=== PATIENT | male | born 1960 | race Caucasian/White ===

== ENCOUNTER 2022-10-29 14:27 | Inpatient (IN) | payer BC, OTHER ==
[2022-10-29] MEDS ORDERED: EPINEPHrine 4 MG in DEXTROSE 5% IN WATER 250 ML IV ONE ×2 (14:45)
[2022-10-29] MEDS ORDERED: HEPARIN SODIUM 1,000 UN/ML (10ML VL) IV PRN (14:52)
[2022-10-29] MEDS ORDERED: SODIUM CHLORIDE 0.9% 1,000 ML IV STA (14:52)
[2022-10-29] MEDS ORDERED: HEPARIN SODIUM 1,000 UN/ML (10ML VL) IV ONE (14:52)
[2022-10-29] MEDS ORDERED: ASPIRIN 300 MG SUPP RECTAL STA (14:52)
[2022-10-29] MEDS ORDERED: VERAPAMIL 2.5 MG/ML 2 ML AMP ONE (14:58)
[2022-10-29] MEDS ORDERED: LIDOCAINE 1% INJ 10MG/ML (20 ML MDV) ONE (14:58)
[2022-10-29] MEDS: HEPARIN SOD,PORK IN 0.45% NACL 25,000 UNIT in 0.45% NACL 1 250ML.BAG IV SCH (15:04)
[2022-10-29 15:07] LABS: Basophils % (A) 1 %; Eosinophils # (A) 0.1 k/uL (0-0.7); Eosinophils % (A) 1 %; HCT 39.6 % (39.0-53.0); HGB 12.7 gm/dL (13.0-17.5); Lymphocytes # (A) 2.8 k/uL (1.0-4.8); Lymphocytes % (A) 45 %; MCH 30.5 pg (25.0-35.0); MCHC 32.2 g/dL (31.0-37.0); MCV 94.7 fL (80.0-100.0); Mean Platelet Volume 8.3; Monocytes # (A) 0.4 k/uL (0-1.0); Monocytes % (A) 6 %; Neutrophils # (A) 2.8 k/uL (1.3-7.7); Neutrophils % (A) 45 %; Platelet Count 316 k/uL (150-450); RBC 4.18 m/uL (4.30-5.90); RDW 12.4 % (11.5-15.5); WBC 6.3 k/uL (3.8-10.6)
[2022-10-29 15:12] LABS: Albumin 2.8 g/dL (3.5-5.0); Calcium 7.2 mg/dL (8.4-10.2); INR 0.9 (<1.2); Magnesium 2.6 mg/dL (1.6-2.3); Partial Thromboplastin Time 25.9 sec (22.0-30.0); Potassium 4.2 mmol/L (3.5-5.1); Total Bilirubin 0.5 mg/dL (0.2-1.3)
[2022-10-29] MEDS ORDERED: ATORVASTATIN 80 MG TAB PO STA ×2 (15:20→15:31)
--- NOTE | 2022-10-29 15:23 | XR ---
EXAMINATION TYPE: XR chest 1V portable DATE OF EXAM: 10/29/2022 HISTORY: Shortness of breath. COMPARISON: None. TECHNIQUE: Single view of the chest is submitted. FINDINGS: Endotracheal tube is well-positioned with its distal tip 3 cm from the angelita. NG tube is seen coursi ng into the stomach. Increased markings within the upper lobes. Cardiomediastinal silhouette is unremarkable. Lung bases a re clear. IMPRESSION: 1. Indwelling tubes and catheters as noted. Increased markings upper lobes are nonspecific.
--- NOTE | 2022-10-29 15:25 | ED ---
General Adult HPI - General Chief complaint: Cardiac Arrest/CPR Stated complaint: Cardiac Arrest Time Seen by Provider: 10/29/22 14:52 Source: EMS Mode of arrival: EMS Limitations: no limitations - History of Present Illness Initial comments: Dictation was produced using [employer] dictation software. please excuse any grammatical, word or spelling errors. 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 He had a witnessed arrest by coworker. CPR was started immediately. EMS was called. Patient is given a total of 4 epinephrine, one dose of amiodarone. He had coded for 30 minutes with short period of time were return of spontaneous circulation was achieved. He did have some bouts of pulseless V. tach for which she received defibrillation. Is is unclear what patient's medical history is. Unable to obtain ROS secondary to mental status PHYSICAL EXAM: General Impression: Obtunded, unresponsive, Rayo device in place HEENT: Normocephalic atraumatic, fixed pupils, pale, dry mucous membranes Cardiovascular: Pulseless Chest: Intubated, easy to bag ventilate Abdomen: abdomen soft, mildly tympanitic, non-distended, no organomegaly Musculoskeletal: no peripheral edema Neurological: Unresponsive Skin: Intact with no visualized rashes ED course: 62-year-old male presents to emergency department for cardiac arrest. He had witnessed arrest. CPR was continued for several minutes. Patient was pulseless on arrival. He did not have a ultrasound signal for pulse. CPR was continued for another several minutes. Patient did have a faint bradycardic pulse on the 34th pulse check. Patient was given epinephrine and heart rate improved into the 100s. His blood pressure was obtained with 160s systolic. EKG is performed showing inferior ST segment elevation CO. There were reciprocal changes in inferior leads. Code STEMI paged. Dr. Laguna requested to evaluate patient at the bedside before committing to laborer heading activation. He did come down and see the patient and did not recommended code STEMI at this time given that history present illness and physical examination suggests brain . Cardiology recommended patient be transferred to the ICU for further care. Nursing notes and chart review was performed EKG interpreted by me: Ventricular rate 15, sinus tachycardia,. Interval to 4, QRS 133, QTc 413. No WA prolongation, no QTC prolongation. ST elevations in inferior leads with Versed with changes and high lateral leads. EKG shows ST segment elevation CO Was pt. sent in by a medical professional or institution (, MP, RAW STOCK DYEING MACHINE TENDER, urgent care, hospital, or usp...) When possible be specific @ -No Did you speak to anyone other than the patient for history (EMS, parent, family, police, friend...)? What history was obtained from this source @ -EMS Did you review nursing and triage notes (agree or disagree)? Why? @ -I reviewed and agree with nursing and triage notes Were old charts reviewed (outside hosp., previous admission, EMS record, old EKG, old radiological studies, urgent care reports/EKG's, usp records)? Report findings @ -No old charts were reviewed Differential Diagnosis (chest pain, altered mental status, abdominal pain women, abdominal pain men, vaginal bleeding, musculoskeletal, weakness, fever, dyspnea, syncope, headache, dizziness, GI bleed, back pain, seizure, CVA, palpatations, mental health)? @ -Differential Syncope: Valvular disease, hypertrophic cardiomyopathy, pulmonary embolism, tamponade, tachycardia, bradycardia, CO, hypovolemia, hemorrhage, dissection, anemia, intracranial hemorrhage, seizure, hypoglycemia, carbon monoxide poisoning, this is not meant to be an all-inclusive list. EKG interpreted by me (3pts min.). @ -See above X-rays interpreted by me (1pt min.). @ -With overseas. Endotracheal tube is approximately 3 cm above the angelita. CT interpreted by me (1pt min.). @ -None done U/S interpreted by me (1pt. min.). @ -None done What testing was considered but not performed or refused? (CT, X-rays, U/S, labs)? Why? @ -None What meds were considered but not given or refused? Why? @ -None Did you discuss the management of the patient with other professionals (professionals i.e. MP Posadas, RAW STOCK DYEING MACHINE TENDER, lab, RT, psych nurse, social media executive, vat overhauler, teacher, medical officer psychiatry, case making machine operator)? Give summary @ -Case discussed in detail with cleaner wall Dr. Laguna. See above for further detail Was smoking cessation discussed for >3mins.? @ -No Was critical care preformed (if so, how long)? @ -Yes, 33 minutes Were there social determinants of health that impacted care today? How? (Homelessness, low income, unemployed, alcoholism, drug addiction, transp ortation, low edu. Level, literacy, decrease access to med. care, mcc, rehab)? @ -No Was there de-escalation of care discussed even if they declined (Discuss DNR or withdrawal of care, Hospice)? DNR status @ -No What co-morbidities impacted this encounter? (DM, HTN, Smoking, COPD, CAD, Cancer, CVA, ARF, Chemo, Hep., AIDS, mental health diagnosis, sleep apnea, morbid obesity)? @ -None Was patient admitted / discharged? Hospital course, mention meds given and route, prescriptions, significant lab abnormalities, going to OR and other pertinent info. @ -62-year-old male admitted to ICU for ST segment elevation CO. Patient does have some signs of brain . He had CPR for 30 minutes. He has fixed pupils. Code STEMI was paged her cleaner wall felt the patient is not a candidate for cardiac catheterization given that he is showing signs of brain . Patient disposition to the ICU. Undiagnosed new problem with uncertain prognosis? @ -No Drug Therapy requiring intensive monitoring for toxicity (Heparin, Nitro, Insulin, Cardizem)? @ - Heparin Were any procedures done? @ -No Diagnosis/symptom? Acute, or Chronic, or Acute on Chronic? Uncomplicated (without systemic symptoms) or Complicated (systemic symptoms)? @ -1. Cardiac arrest, 2. ST segment elevation CO, 3. Anoxic brain injury Side effects of treatment? @ -No Exacerbation, Progression, or Severe Exacerbation? @ -No Poses a threat to life or bodily function? How? (Chest pain, USA, CO, pneumonia, PE, COPD, DKA, ARF, appy, cholecystitis, CVA, Diverticulitis, Homicidal, Suicidal, threat to staff... and all critical care pts) @ -yes - Related Data Home Medications Medication Instructions Recorded Confirmed Empagliflozin [Jardiance] 25 mg PO DAILY 10/29/22 10/29/22 Insulin Degludec [Tresiba 20 units SQ HS 10/29/22 10/29/22 Flextouch U-100 Pen] Nortriptyline [Pamelor] 25 mg PO BID 10/29/22 10/29/22 OXcarbazepine [Trileptal] 300 mg PO DAILY 10/29/22 10/29/22 carvediloL [Coreg] 12.5 mg PO BID 10/29/22 10/29/22 lisinopriL [Prinivil] 20 mg PO DAILY 10/29/22 10/29/22 metFORMIN HCL [Glucophage] 1,000 mg PO BID 10/29/22 10/29/22 Allergies Allergy/AdvReac Type Severity Reaction Status Date / Time No Known Allergies Allergy Unverified 10/29/22 15:00 Review of Systems ROS Statement: Those systems with pertinent positive or pertinent negative responses have been documented in the HPI. ROS Other: All systems not noted in ROS Statement are negative. General Exam Limitations: no limitations Course Vital Signs 10/29/22 10/29/22 10/29/22 14:40 14:43 14:58 Pulse Rate 109 H Respiratory 24 Rate Blood Pressure 155/98 Fraction of 100 100 Inspired Oxygen (FIO2) Medical Decision Making - Lab Data Lab Results 10/29/22 Range/Units 14:30 PT 10.0 (9.0-12.0) sec INR 0.9 (<1.2) APTT 25.9 (22.0-30.0) sec Disposition Clinical Impression: Cardiac arrest Disposition: ADMITTED IP TO THIS [facility] Condition: Critical Referrals: None,Stated [Primary Care Provider] - 1-2 days Decision Time: 15:25
[2022-10-29] MEDS ORDERED: NALOXONE 0.4 MG/ML 1 ML VIAL IV PRN (15:26)
--- NOTE | 2022-10-29 15:28 | ED ---
Medical Decision Making - Lab Data Lab Results 10/29/22 10/29/22 Range/Units 14:30 14:30 PT 10.0 (9.0-12.0) sec INR 0.9 (<1.2) APTT 25.9 (22.0-30.0) sec Troponin I <0.012 (0.000-0.034) ng/mL Disposition Clinical Impression: Cardiac arrest Disposition: ADMITTED IP TO THIS [facility] Condition: Critical Referrals: None,Stated [Primary Care Provider] - 1-2 days Procedures - Central Line Placement Right Femoral Consent Obtained: emergent situation Patient Placed on Monitor/Pulse Ox: Yes Prep: mask, gown, gloves Central Line Prep: Chlorhexidine scrub Ultrasound Used for Placement: Yes Central Line Lumen Inserted: triple Bloods Obtained for Lab: No Central Line Position: good blood return, sutured in place with 3-0 nylon Patient Tolerated Procedure: well Complications: none
[2022-10-29] MEDS ORDERED: ASPIRIN 81 MG PO STA (15:31)
[2022-10-29] MEDS ORDERED: CLOPIDOGREL 75 MG TAB PO STA (15:31)
--- NOTE | 2022-10-29 15:58 | P.CNPUL ---
History of Present Illness Consult date: 10/29/22 Chief complaint: Cardiac arrest History of present illness: 6-year-old male patient who presented to the ED with a cardiac arrest. 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 He was witnessed arrest by coworker. CPR was immediately started. The patient was hooked to an AICD and the patient was given 2 shocks. EMS called to the scene, and upon their arrival, the patient was then PA and the patient was given a total of 4 was of epinephrine, 1 dose of amiodarone. He coded for a total of 30 minutes with a short period of time when there was a return returnto his circulation. He also went into ventricular tachycardia/fibrillation and required defibrillation. Upon arrival to the emergency, the patient was coded for another 5 minutes and there was return of spontaneous circulation. I believe the total down time was around 35 minutes. The patient was apparently pulseless of the time of arrival to the emergency department. Subsequently, he regained blood pressure and his most recent blood pressure 190/100. The patient is currently intubated on a mechanical ventilator. EKG showed a inferior wall ST segment elevation alex cardial infarction. Cardiology was informed. Cardiac catheterization was declined based on his prolonged downtime. At this point in time, the patient was seen in the emergency. He is on a mechanical ventilator, assist control 14, tidal volume of 450, FiO2 100% and a PEEP of 5. His chest x-ray showing pulmonary edema ET tube is in a good location. Echocardiogram was ordered and it will be done within next few minutes. Arango catheter is in place and the patient has good urine output. The patient is on no sedation. He is somewhat asynchronous a mechanical ventilator, trying to breathe above the vent setting and becoming asynchronous. I recommended to start the patient on propofol. He was given rectal aspirin. He was started on IV heparin. The blood pressure was noted to be elevated. Recommended metoprolol 50 mg twice a day, hydralazine as needed and Lasix. Neurologically impaired. The patient is unresponsive. Pupils are 3 mm in size, sluggishly reactive to light. No other withdrawing to any painful stimulation. His initial troponin set was negative. The B cigars at 6.3 with a hemoglobin 12.7 and a platelet count of 360. Normal cognition profile. Bicarbs at 17 with a BUN of 27 and a creatinine of 1.47. Lactic acid level was at 8.5. Glucose of 471. He is diabetic. Review of Systems ROS unobtainable: due to endotracheal tube Past Medical History Past Medical History: Diabetes Mellitus, Hypertension Medications and Allergies Home Medications Medication Instructions Recorded Confirmed Type Empagliflozin [Jardiance] 25 mg PO DAILY 10/29/22 10/29/22 History Insulin Degludec [Tresiba 20 units SQ HS 10/29/22 10/29/22 History Flextouch U-100 Pen] Nortriptyline [Pamelor] 25 mg PO BID 10/29/22 10/29/22 History OXcarbazepine [Trileptal] 300 mg PO DAILY 10/29/22 10/29/22 History carvediloL [Coreg] 12.5 mg PO BID 10/29/22 10/29/22 History lisinopriL [Prinivil] 20 mg PO DAILY 10/29/22 10/29/22 History metFORMIN HCL [Glucophage] 1,000 mg PO BID 10/29/22 10/29/22 History Allergies Allergy/AdvReac Type Severity Reaction Status Date / Time No Known Allergies Allergy Unverified 10/29/22 15:00 Physical Exam Vitals: Vital Signs Pulse Resp BP FiO2 10/29/22 14:58 100 10/29/22 14:43 100 10/29/22 14:40 109 H 24 155/98 Intake and Output 10/29/22 10/29/22 10/29/22 06:59 14:59 22:59 Other: Weight 81.647 kg Unresponsive, breathing above the mechanical ventilator, intubated, orogastric and orotracheal tube are both in place. Head exam was generally normal. There was no scleral icterus or corneal arcus. Mucous membranes were moist. Neck was supple and without jugular venous distension, thyromegaly, or carotid bruits. Carotids were easily palpable bilaterally. There was no adenopathy. Lungs were clear to auscultation and percussion, and with normal diaphragmatic excursion. No wheezes or rales were noted. There is some sort low-cost the anterior chest and the level of sternum related to CPR and there is some underlying erythema. Cardiac exam revealed the PMI to be normally situated and sized. The rhythm was regular and no extrasystoles were noted during several minutes of auscultation. The first and second heart sounds were normal and physiologic splitting of the second heart sound was noted. There were no murmurs, rubs, clicks, or gallops. Abdominal exam revealed normal bowel sounds. The abdomen was soft, non-tender, and without masses, organomegaly, or appreciable enlargement of the abdominal aorta. Examination of the extremities revealed easily palpable radial, femoral and pedal pulses. There was no cyanosis, clubbing or edema. Neurologically the patient is unresponsive to any verbal or painful. Pupils are round 3-4 mm in size, sluggishly reactive to light. No nystagmus. Sensory and motor functions cannot be assessed. Equal and symmetrical reflexes. No Babinski. No clonus. Positive cough. Positive gag. Results - Laboratory Findings CBC and BMP: 10/29/22 14:30 10/29/22 14:30 PT/INR, D-dimer PT 10.0 sec (9.0-12.0) 10/29/22 14:30 INR 0.9 (<1.2) 10/29/22 14:30 Abnormal lab findings: Abnormal Labs 10/29/22 10/29/22 10/29/22 14:30 14:30 14:30 RBC 4.18 L Hgb 12.7 L Sodium 131 L Carbon Dioxide 17 L BUN 27 H Creatinine 1.47 H Glucose 471 H Plasma Lactic Acid Aydin 8.5 H* Calcium 7.2 L Magnesium 2.6 H AST 238 H ALT 163 H Total Protein 5.0 L Albumin 2.8 L - Diagnostic Findings Chest x-ray: image reviewed Assessment and Plan Plan: Cardiac arrest, witnessed, CPR and resuscitation was initiated on the scene and the patient was brought into the emergency department where CPR resuscitation was continued and there was return respiratory circulation probably within 35 minutes. The patient received AID shocks initially, subsequent epinephrine doses, amiodarone, defibrillation and ultimately there was return of spontaneous circulation. Acute STEMI, inferior wall myocardial infarction Acute toxic respiratory failure secondary to bowel Unresponsiveness/comatose state, likely secondary to underlying anoxic encepha lopathy Acute pulmonary edema with bilateral pulmonary infiltrates and cephalization based on the chest x-ray Acute kidney injury Acute lactic acidosis secondary to above Diabetes mellitus type 2 with hyperglycemia secondary to above Hypertension Plan Cardiology is already evaluated the patient and declined cardiac catheterization based on his prolonged downtime We'll treat this patient medically Keep the vent support for now No changes in the mechanical ventilator other than weaning of FiO2. We'll gradually wean down FiO2. Obtain a blood gas Continue IV heparin Continue aspirin Start The patient metoprolol 50 mg by mouth twice a day Hydralazine 10 mg IV every 4-6 hours for systolic blood pressure above 160 Lasix 40 mg IV push 1 Echocardiogram CAT scan of the brain Propofol to maintain synchrony with mechanical ventilator Monitor temperature and avoid any hyperthermia Insulin drip for blood sugar control Lovenox 40 mg subcu portably prophylaxis No need for pressors We'll continue to follow. The triple-lumen catheter was inserted in the right femoral vein by the emergency physician. Condition is extremely critical, poor prognosis Time with Patient: Greater than 30
[2022-10-29] MEDS ORDERED: levETIRAcetam IV 750 MG in SODIUM CHLORIDE 0.9% 100 ML IVPB STA (16:46)
--- NOTE | 2022-10-29 17:10 | P.CNNES ---
History of Present Illness Consult date: 10/29/22 Requesting physician: Jaret Laguna Reason for Consult: 30 minutes downtime post cardiac arrest History of Present Illness: This is a 62-year-old gentleman with history of diabetes mellitus who presented emergency department with a cardiac arrest. Some of the history is obtained from patient's family members as well as medical record. According to family members the patient has been having the off for the past 1 week and been feeling tired the past couple days. Today he went to work today and stated he was doing well yesterday. 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 It seems it appears he was down for total of 35 minutes. According to pulmonary team, at work he had witnessed arrest witnessed by coworkers and CPR was immediately started and is seems the patient was hooked to an AICD and was given 2 shocks. Then the EMS arrived at the scene and was given a total 4 PM and 1 dose of amiodarone. The total downtime was 30 minutes then there was a return of rosc. He went into V. tach/fibrillation and required defibrillation. Upon arrival to emergency patient coded for another 5 minutes then had the return of spontaneous circulation. It seems a total downtime was 35 minutes as stated earlier. As result he was intubated on ventilator. He was started on IV Propofol by ICU team because he bucking the vent according to the nurse. According to family members no history of stroke or seizures. No tobacco, illicit drug use or any significant alcohol use. Some of the work-up during this hospital visit consisted of: Sodium is 131, AST of 5-38, ALT of 163, plasma lactic acid venous 8.5, creatinine is 1.47. Glucose is [address] elevation, consider inferior injury. Acute [place] Appears to patient did not go for cardiac cath because of the prolonged downtime. Review of Systems Review of systems Limited but the per positive and negative as per HPI. Past Medical History Past Medical History: Diabetes Mellitus, Hypertension Medications and Allergies Home Medications Medication Instructions Recorded Confirmed Type Empagliflozin [Jardiance] 25 mg PO DAILY 10/29/22 10/29/22 History Insulin Degludec [Tresiba 20 units SQ HS 10/29/22 10/29/22 History Flextouch U-100 Pen] Nortriptyline [Pamelor] 25 mg PO BID 10/29/22 10/29/22 History OXcarbazepine [Trileptal] 300 mg PO DAILY 10/29/22 10/29/22 History carvediloL [Coreg] 12.5 mg PO BID 10/29/22 10/29/22 History lisinopriL [Prinivil] 20 mg PO DAILY 10/29/22 10/29/22 History metFORMIN HCL [Glucophage] 1,000 mg PO BID 10/29/22 10/29/22 History Allergies Allergy/AdvReac Type Severity Reaction Status Date / Time No Known Allergies Allergy Unverified 10/29/22 15:00 Physical Examination - Vital Signs Vital Signs: Vital Signs Pulse Resp BP Pulse Ox FiO2 10/29/22 16:10 82 25 H 155/85 98 10/29/22 16:00 89 9 L 142/82 98 10/29/22 15:50 90 18 186/104 99 10/29/22 15:40 86 24 191/107 100 10/29/22 15:30 90 22 195/117 100 10/29/22 15:25 92 21 200/115 100 10/29/22 14:58 100 10/29/22 14:43 100 10/29/22 14:40 109 H 24 155/98 Intake and Output 10/29/22 10/29/22 10/29/22 06:59 14:59 22:59 Other: Weight 81.647 kg GENERAL: The patient is lying in bed and does not appear in acute distress. CHEST: The heart rate is regular rate rhythm. LUNG: Clear to auscultation bilaterally no wheezing noted throughout. Not labored breathing. Intubated on ventilator. ABDOMEN/GI: Bowel sounds present in all 4 quadrants. No tenderness to palpation throughout. NEUROLOGICAL: Limited because of his condition. Is on IV Propofol 10mcg/kg/min. Higher mental function: Comtose GCS 3 (E1, VT1, M1). Cranial nerves: I had manually open his eyes and primary gaze is midline. Pupils are round, 3mm and sluggishy reactive to light. +ve corneal reflex bilaterally. No facial weakness. +ve cough reflex. Is breathing over the vent. T Motor: The strength is with painful stimuli to withdrawaling but at two instances upon suction him he had episode of lifting arms up and bringing them down that was rapid. Normal bulk. Decrease tone throughout. Cerebellum: Unable to assess. Sensation: Unable to assess light touch. To painful stimuli not responding. Reflexes (right/left): 1+ throughout. Plantars are mute bilaterally. Results - Laboratory Findings CBC and BMP: 10/29/22 14:30 10/29/22 14:30 Abnormal Lab Findings: Abnormal Labs 10/29/22 10/29/22 10/29/22 14:30 14:30 14:30 RBC 4.18 L Hgb 12.7 L Sodium 131 L Carbon Dioxide 17 L BUN 27 H Creatinine 1.47 H Glucose 471 H Plasma Lactic Acid Aydin 8.5 H* Calcium 7.2 L Magnesium 2.6 H AST 238 H ALT 163 H Total Protein 5.0 L Albumin 2.8 L Assessment and Plan Assessment: This is a 62-year-old gentleman with had a cardiopulmonary arrest while at work and was down time for a total of possibly 35 minutes. Cardiac arrest with a total [place] between about 35 minutes. Patient had CPR was reported immediately. Anoxic encephalopathy due to prolonged cardiac arrest (has some brainstem fu nction) Acute STEMI, inferior wall myocardial infarction Liver shock likely due to cardiac arrest Acute kidney injury likely due to cardiac arrest Diabetes mellitus type 2 Hypertension Plan: I ordered CT of the brain, EEG. I also ordered ammonia level and TSH Patient had 2 episodes where he frail his arms up and down and unsure if was truly seizure activity. In the meantime I start the patient on Keppra 750mg every12 hours for now and will modify depending on clinical presentation and EEG. 2-D echo was ordered by cardiology Q1 hour neuro checks We'll defer the rest of the medical management to the ICU and cardiology team Condition is a very guarded. The plan is discussed with the patient's family members ( and son) as well nurse. Thank you for the consultation. Time with Patient: Greater than 30
[2022-10-29 17:20] LABS: ABG Base Excess -3.3 mmol/L; ABG HCO3 23 mmol/L (21-25); ABG Oxygen Saturation 96.7 % (94-97); ABG PCO2 45 mmHg (35-45); ABG PH 7.32 (7.35-7.45); ABG PO2 87 mmHg (83-108); ABG TCO2 24 mmol/L (19-24); Allen Test Performed? Yes
--- NOTE | 2022-10-29 17:23 | CA ---
Transthoracic Echo Report Name: Manan Vides Age: 62 Gender: M : 1960 Exam Date: 10/29/2022 15:45 Exam Location: [facility] Ht (in): 65 Wt (lb): 180 Ordering Physician: Jaret Laguna MD Attending/Referring Phys: Group Leader Priti Hopkins RDCS Procedure CPT: Indications: lvef Cardiac Hx: Technical Quality: Fair Contrast 1: Total Dose (mL): Contrast 2: Total Dose (mL): MEASUREMENTS (Male / Female) Normal Values 2D ECHO LV Diastolic Diameter PLAX 3.2 cm 4.2 - 5.9 / 3.9 - 5.3 cm LV Systolic Diameter PLAX 2.1 cm IVS Diastolic Thickness 1.2 cm 0.6 - 1.0 / 0.6 - 0.9 cm LVPW Diastolic Thickness 1.3 cm 0.6 - 1.0 / 0.6 - 0.9 cm LV Relative Wall Thickness 0.8 LA Volume 37.5 cm??? 18 - 58 / 22 - 52 cm??? DOPPLER AV Peak Velocity 104.5 cm/s AV Peak Gradient 4.4 mmHg AV Mean Velocity 77.6 cm/s AV Mean Gradient 2.6 mmHg AV Velocity Time Integral 19.8 cm LVOT Peak Velocity 76.3 cm/s LVOT Peak Gradient 2.3 mmHg LVOT Velocity Time Integral 16.1 cm MV Area PHT 5.2 cm??? Mitral E Point Velocity 108.2 cm/s Mitral A Point Velocity 94.2 cm/s Mitral E to A Ratio 1.1 MV Deceleration Time 144.8 ms MV E' Velocity 8.3 cm/s Mitral E to MV E' Ratio 13.0 FINDINGS Left Ventricle Left ventricular cavity size normal. Mildly increased left ventricular wall thickness. Mid inferior wall hypokinesis. Left ventricular ejection fraction is estimated at 55 %. Right Ventricle Normal right ventricular size and function. Right ventricular systolic pressure within normal limits. Right Atrium Normal right atrial size. Left Atrium Normal left atrial size. Mitral Valve Structurally normal mitral valve. No mitral stenosis, regurgitation or prolapse. Aortic Valve No aortic valve stenosis or regurgitation. Tricuspid Valve Structurally normal tricuspid valve. Trace tricuspid regurgitation. Pulmonic Valve Structurally normal pulmonic valve. Pericardium Minimal pericardial effusion (normal variant). Aorta Normal size aortic root and proximal ascending aorta. CONCLUSIONS Left ventricular ejection fraction 55% with mild mid inferior hypokinesis No mitral regurgitation Trivial pericardial effusion Trace tricuspid regurgitation Previewed by: Dr. Boy Kraus DO (Electronically Signed) Final Date: 29 October 2022 17:22
--- NOTE | 2022-10-29 17:28 | CT ---
EXAMINATION TYPE: CT brain wo con DATE OF EXAM: 10/29/2022 COMPARISON: None HISTORY: AMS CT DLP: 1127.4 mGycm Automated exposure control for dose reduction was used. Images of the brain obtained with no contrast. Ventricles have normal size. There is no mass effect o r midline shift. No sign of intracranial hemorrhage. Calvarium is intact. The skull base is intact. T here is some mucosal thickening in the sphenoid ethmoid and maxillary sinuses. Sella turcica appears normal. There is normal aeration of the mastoid sinuses. IMPRESSION: Sinusitis. No acute intracranial abnormality no hemorrhage.
[2022-10-29 17:55] LABS: Glucose,Whole Blood 403 mg/dL (70-110)
[2022-10-29] MEDS ORDERED: LORazepam 2 MG/ML INJ IV STA (17:59)
[2022-10-29] MEDS ORDERED: levETIRAcetam IV 1,000 MG in SALINE 1 100ML.BAG IVPB STA (18:02)
[2022-10-29] MEDS: SODIUM CHLORIDE 0.9% 1,000 ML IV SCH ×2 (18:16→21:49)
[2022-10-29] MEDS ORDERED: DEXTROSE 50% SYRINGE 50 ML IVP PRN ×2 (18:51)
[2022-10-29 19:00] LABS: Appearance,Urine Cloudy (Clear); Bacteria,Urine Rare /hpf; Bilirubin,Urine Negative (Negative); Blood,Urine Trace (Negative); Color,Urine Light Yellow; Glucose,Urine (UA) 4+ (Negative); Ketones,Urine Trace (Negative); Leukocyte Esterase,Urine Negative (Negative); Mucus,Urine Rare /hpf; Nitrite,Urine Negative (Negative); Protein,Urine Negative (Negative); RBC,Urine 4 /hpf (0-5); Specific Gravity,Urine 1.019 (1.001-1.035); Squamous Epithelial Cell,Urine 1 /hpf (0-4); Urobilinogen,Urine <2.0 mg/dL (<2.0); WBC,Urine 3 /hpf (0-5)
[2022-10-29] MEDS ORDERED: INSULIN ASPART (NovoLOG) 100 UNIT/ML VIAL SQ ONE (19:00)
--- NOTE | 2022-10-29 19:39 | P.EPPROC ---
- EP Procedure Note Electrophysiology Procedure Note: This is Dr. Laguna dictating a consult on this patient The patient was interviewed and examined IMPRESSION / ASSESSMENT: Out of hospital cardiac arrest witnessed by coworkers CPR begun at work and automatic external defibrillator recommended shock. 2 shocks were given EMS arrived after about 25 minutes. Patient was in PEA when EMS arrived, which with 4 rounds of epinephrine and amiodarone Later went into ventricular tachycardia and required defibrillation again He was pulseless when he arrived to the ER, received defibrillation and coated for 5-10 minutes Total down time 35 minutes Pupils nonreactive to light, blood pressure maintained heart rates normal Twelve-lead EKG shows ST elevation in the inferior leads and V6 T-wave inversions in the high lateral leads Urgent echo revealed absence of pericardial effusion and normal LV function Patient maintained normal blood pressure thereafter Treated with IV heparin statins aspirin and Plavix Coronary intervention not recommended given the in anoxic brain injury and the down time of more than 30 minutes with recurrent PEA Discussed with guide escort Dr. Franco who is in agreement Stable from a cardiovascular standpoint and able to maintain his blood pressure and rhythm but neurologically appears to have had anoxic brain injury with some residual brainstem function PLAN: Continue IV heparin, aspirin and Plavix and statins Tomorrow if he remains stable I will start metoprolol by mouth as well as blood pressure control related He is currently a propofol drip and is receiving Keppra, for possible seizure- like activity, per neurology Maintain mean arterial pressure around 80 mmHg, avoid hypotension Keep: Body temperature around 36. Heating blanket removed The patient's LV function is normal. His vitals are stable his blood pressure is normal. He is maintaining circulation First troponin is normal. Repeat troponin sent at 7 PM Shock liver and acute kidney injury consistent with the extent of his down time and set of cardiac shock. This is now reversed completely and he is perfusing well No further episodes of VT or VF HPI Patient had an out of hospital cardiac arrest and was brought to the ER I spoke to the EMS personnel and they stated that they arrived 25 minutes after he was down. When they arrived he was in PEA. Multiple rounds of epinephrine given Subsequently he did: 2 VT/VF and required repeat shocks He did not have a pulse when he arrived in the ER He was coded for about 10 minutes and thereafter he has maintained perfusion, normal blood pressure normal heart rates Unfortunately his pupils a virtually fixed. He does not withdraw to pain in the ER He is ventilator dependent He was treated with aspirin and Plavix atorvastatin and IV heparin Given the duration of the down time and his anoxic brain injury, coronary angiography was brought recommended Blood pressure was in normal range in the ER heart rates are normal in the 70s (EKG showed 1-[address] elevation in the inferior leads and V6 with T-wave inversions in high lateral leads Subsequently his 2-D echo showed preserved LV systolic function with mild inferior wall hypokinesis REVIEW OF LABS, ECG & MEDICAL DATA 2-D echo performed recently showed preserved systolic function ejection fraction 55% with mild inferior wall hypokinesis, no pericardial effusion
[2022-10-29] MEDS: MIDAZOLAM HCL 50 MG in SODIUM CHLORIDE 0.9% 40 ML IV SCH (19:43)
[2022-10-29] MEDS: CHLORHEXIDINE GLUCONATE 15 ML CUP MUCOUS MEM SCH (20:12)
[2022-10-29 20:37] LABS: Glucose,Whole Blood 400 mg/dL (70-110)
[2022-10-29] MEDS ORDERED: levETIRAcetam IV 750 MG in SODIUM CHLORIDE 0.9% 100 ML IVPB SCH (21:00)
[2022-10-29] MEDS ORDERED: INSULIN REGULAR 100 UNIT in SODIUM CHLORIDE 0.9% 100 ML IV SCH (21:30)
[2022-10-29] MEDS: levETIRAcetam IV 1,000 MG in SALINE 1 100ML.BAG IVPB SCH (21:50)
[2022-10-29 21:57] LABS: Glucose,Whole Blood 370 mg/dL (70-110)
[2022-10-29 23:03] LABS: Glucose,Whole Blood 303 mg/dL (70-110)
[2022-10-30] MEDS ORDERED: INSULIN ASPART (NovoLOG) 100 UNIT/ML VIAL SQ SCH
[2022-10-30 00:03] LABS: Glucose,Whole Blood 235 mg/dL (70-110)
[2022-10-30 01:00] LABS: Glucose,Whole Blood 157 mg/dL (70-110)
[2022-10-30 02:04] LABS: Glucose,Whole Blood 192 mg/dL (70-110)
[2022-10-30 02:58] LABS: ABG Base Excess 0.9 mmol/L; ABG HCO3 25 mmol/L (21-25); ABG Oxygen Saturation 99.2 % (94-97); ABG PCO2 36 mmHg (35-45); ABG PH 7.45 (7.35-7.45); ABG PO2 330 mmHg (83-108); ABG TCO2 26 mmol/L (19-24); Allen Test Performed? Yes
[2022-10-30 03:08] LABS: Glucose,Whole Blood 117 mg/dL (70-110)
[2022-10-30 04:08] LABS: Glucose,Whole Blood 152 mg/dL (70-110)
[2022-10-30 04:45] LABS: Basophils # (A) 0.1 k/uL (0-0.2); Basophils % (A) 0 %; Eosinophils % (A) 0 %; HCT 41.9 % (39.0-53.0); HGB 14.2 gm/dL (13.0-17.5); Lymphocytes # (A) 0.6 k/uL (1.0-4.8); Lymphocytes % (A) 4 %; MCH 30.1 pg (25.0-35.0); MCHC 33.9 g/dL (31.0-37.0); Monocytes # (A) 1.3 k/uL (0-1.0); Monocytes % (A) 8 %; Neutrophils # (A) 14.4 k/uL (1.3-7.7); Neutrophils % (A) 87 %; Platelet Count 393 k/uL (150-450); RBC 4.72 m/uL (4.30-5.90); RDW 12.2 % (11.5-15.5); WBC 16.5 k/uL (3.8-10.6)
[2022-10-30 05:04] LABS: Albumin 2.9 g/dL (3.5-5.0); Calcium 8.3 mg/dL (8.4-10.2); Magnesium 2.2 mg/dL (1.6-2.3); Potassium 4.9 mmol/L (3.5-5.1); Total Bilirubin 0.4 mg/dL (0.2-1.3); Total Protein 5.2 g/dL (6.3-8.2)
[2022-10-30 05:49] LABS: MCV 88.8 fL (80.0-100.0)
[2022-10-30 05:58] LABS: Glucose,Whole Blood 165 mg/dL (70-110)
--- NOTE | 2022-10-30 07:10 | XR ---
EXAMINATION TYPE: XR chest 1V portable DATE OF EXAM: 10/30/2022 CLINICAL HISTORY: Difficulty breathing progress study. TECHNIQUE: Single AP portable semiupright view of the chest is obtained. COMPARISON: Chest x-ray from one day earlier and older studies. FINDINGS: Stable endotracheal and orogastric tubes. Mild increased central markings. No new peripher al focal airspace opacity, pleural effusion, or pneumothorax seen bilaterally. Cardiac silhouette siz e stable and within normal limits. Osseous structures are intact. IMPRESSION: Stable mild central vascular congestion. No new acute peripheral infiltrate. No significa nt change from one day earlier.
[2022-10-30 07:22] LABS: Amphetamine Screen,Urine Not Detected (NotDetected); Benzodiazepines Screen,Urine Detected (NotDetected); Cocaine Screen,Urine Not Detected (NotDetected); Opiate Screen,Urine Not Detected (NotDetected); Phencyclidine Screen,Urine Not Detected (NotDetected); Urn Cannabinoid Scrn Not Detected (NotDetected)
[2022-10-30 07:23] LABS: Barbiturate Screen,Urine Not Detected (NotDetected); Methadone Screen, Urine Not Detected (NotDetected); Oxycodone Screen, Urine Not Detected (NotDetected); Tricyclic Antidepressant,Urine Detected (NotDetected)
[2022-10-30] MEDS: SODIUM CHLORIDE 0.9% 1,000 ML IV SCH ×2 (07:30→20:08)
--- NOTE | 2022-10-30 08:24 | P.PN ---
Subjective Progress Note Date: 10/30/22 62-year-old male patient who presented to the ED with a cardiac arrest. 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 He was witnessed arrest by coworker. CPR was immediately started. The patient was hooked to an AICD and the patient was given 2 shocks. EMS called to the scene, and upon their arrival, the patient was then PA and the patient was given a total of 4 was of epinephrine, 1 dose of amiodarone. He coded for a total of 30 minutes with a short period of time when there was a return returnto his circulation. He also went into ventricular tachycardia/fibrillation and required defibrillation. Upon arrival to the emergency, the patient was coded for another 5 minutes and there was return of spontaneous circulation. I believe the total down time was around 35 minutes. The patient was apparently pulseless of the time of arrival to the emergency department. Subsequently, he regained blood pressure and his most recent blood pressure 190/100. The patient is currently intubated on a mechanical ventilator. EKG showed a inferior wall ST segment elevation myocardial infarction. Cardiology was informed. Cardiac catheterization was declined based on his prolonged downtime. At this point in time, the patient was seen in the emergency. He is on a mechanical ventilator, assist control 14, tidal volume of 450, FiO2 100% and a PEEP of 5. His chest x-ray showing pulmonary edema ET tube is in a good location. Echocardiogram was ordered and it will be done within next few m inutes. Arango catheter is in place and the patient has good urine output. The patient is on no sedation. He is somewhat asynchronous a mechanical ventilator, trying to breathe above the vent setting and becoming asynchronous. I recommended to start the patient on propofol. He was given rectal aspirin. He was started on IV heparin. The blood pressure was noted to be elevated. Recommended metoprolol 50 mg twice a day, hydralazine as needed and Lasix. Neurologically impaired. The patient is unresponsive. Pupils are 3 mm in size, sluggishly reactive to light. No other withdrawing to any painful stimulation. His initial troponin set was negative. The B cigars at 6.3 with a hemoglobin 12.7 and a platelet count of 360. Normal cognition profile. Bicarbs at 17 with a BUN of 27 and a creatinine of 1.47. Lactic acid level was at 8.5. Glucose of 471. He is diabetic. 10/30/2022, the patient's is being seen in the intensive care unit, intubated on a mechanical ventilator. Currently on propofol which is running at 25 mcg/kg/m to maintain synchrony with a mechanical ventilator. Neurologically, he has upward gaze, he does have sensation to pain as the patient moves his arms and legs to deep painful stimulation. An accurate motor and sensory evaluation cannot be done. The patient does not follow any commands. No seizure activity has been noted. The patient was seen by neurology yesterday. CAT scan of the brain was done that showed no acute abnormalities. At the same time, the patient was seen by neurology and started on IV Keppra empirically. Anoxic encephalopathy is highly suspected because of his prolonged downtime following the cardiac arrest. EEG is to follow today. In terms of respiratory support, the patient remains on a mechanical ventilator. Is on a rate of 20, tidal volume of 450, FiO2 of 50% with a PEEP of 5, and a morning blood gases showed a pH of 7.45 with a pCO2 of 36 and pO2 of 3:30 and this was an FiO2 of 100%, as such, the FiO2 was dropped onto 50%. The chest x-ray from today shows some improvement in the pulmonary edema. There is still some underlying cephalization. No airspace disease or consolidations. EKG was in a good loca tion. The patient is afebrile for now. No significant respiratory secretions. The patient is quite successful mechanical ventilator. Hemodynamically, the patient has a stable blood pressure. No pressors were utilized. The patient is currently on IV fluids at 70 mL an hour normal saline. Troponins peaked at 2.6. Echocardiogram was done yesterday and the patient was found to have mildly incr eased left ventricular wall thickness, ejection fraction on the left was 55%, normal RV, there was some mild inferior wall hypokinesis which goes along with his acute ST segment elevation inferior wall myocardial infarction. The patient remains on IV heparin. PTT is therapeutic. Lactic acid level dropped from 8.5 down to 2.6. Urine drug screen was done and the patient was positive for tricyclics and benzodiazepines. Objective - Vital Signs Vital signs: Vital Signs Temp 99.0 F 10/30/22 06:00 Pulse 92 10/30/22 07:30 Resp 20 10/30/22 07:30 BP 128/73 10/30/22 07:30 Pulse Ox 99 10/30/22 07:30 FiO2 50 10/30/22 07:38 Intake & Output 10/29/22 10/30/22 10/30/22 18:59 06:59 18:59 Intake Total 494.641 0987.429 70 Output Total 300 980 45 Balance -167.061 27.429 25 Weight 70.8 kg 70.8 kg Intake: IV 130 860 70 Sodium Chloride 0.9% 1, 130 660 70 000 ml @ 130 mls/hr IV . [id number] [facility] Rx#:[id number] levETIRAcetam IV 1,000 mg 200 In Saline 1 100ml.bag @ 400 mls/hr IVPB ONCE [facility] Rx#:[id number] Intake, IV Titration 2.939 147.429 Amount Insulin Regular 100 unit 26.772 In Sodium Chloride 0.9% 100 ml @ Titrate IV .Q0M [facility] Rx#:[id number] propofoL 1,000 mg In 2.939 120.657 Empty Bag 1 bag @ 15 MCG/ KG/MIN 7.348 mls/hr IV . [id number] [facility] Rx#:[id number] Tube Feeding 0 Other 0 Output: Gastric Drainage 100 Urine 300 880 45 Other: Voiding Method Indwelling Catheter - Exam Unresponsive, breathing above the mechanical ventilator, intubated, orogastric and orotracheal tube are both in place. Head exam was generally normal. There was no scleral icterus or corneal arcus. Mucous membranes were moist. Neck was supple and without jugular venous distension, thyromegaly, or carotid bruits. Carotids were easily palpable bilaterally. There was no adenopathy. Lungs were clear to auscultation and percussion, and with normal diaphragmatic excursion. No wheezes or rales were noted. There is some bruising over the the anterior chest and the level of sternum related to CPR and there is some un derlying erythema. Cardiac exam revealed the PMI to be normally situated and sized. The rhythm was regular and no extrasystoles were noted during several minutes of auscultation. The first and second heart sounds were normal and physiologic splitting of the second heart sound was noted. There were no murmurs, rubs, clicks, or gallops. Abdominal exam revealed normal bowel sounds. The abdomen was soft, non-tender, and without masses, organomegaly, or appreciable enlargement of the abdominal aorta. Examination of the extremities revealed easily palpable radial, femoral and pedal pulses. There was no cyanosis, clubbing or edema. Neurologically the patient is unresponsive to any verbal or painful. Pupils are round 3-4 mm in size, sluggishly reactive to light. No nystagmus. Sensory and motor functions cannot be assessed. Equal and symmetrical reflexes. No Babinski. No clonus. Positive cough. Positive gag. No major change in his neurologic examination on today's evaluation. No witnessed seizures. He has an upper gaze. Is withdrawing to be painful stimulation in the upper extremities. - Labs CBC & Chem 7: 10/30/22 03:37 10/30/22 03:37 Labs: Abnormal Lab Results - Last 24 Hours (Table) 10/29/22 10/29/22 10/29/22 Range/Units 14:30 14:30 14:30 WBC (3.8-10.6) k/uL RBC 4.18 L (4.30-5.90) m/uL Hgb 12.7 L (13.0-17.5) gm/dL Neutrophils # (1.3-7.7) k/uL Lymphocytes # (1.0-4.8) k/uL Monocytes # (0-1.0) k/uL APTT (22.0-30.0) sec ABG pH (7.35-7.45) ABG pO2 (83-108) mmHg ABG Total CO2 (19-24) mmol/L ABG O2 Saturation (94-97) % Sodium 131 L (137-145) mmol/L Potassium (3.5-5.1) mmol/L Chloride (98-107) mmol/L Carbon Dioxide 17 L (22-30) mmol/L BUN 27 H (9-20) mg/dL Creatinine 1.47 H (0.66-1.25) mg/dL Glucose 471 H (74-99) mg/dL POC Glucose (mg/dL) (70-110) mg/dL Hemoglobin A1c (0.0-6.0) % Plasma Lactic Acid Aydin 8.5 H* (0.7-2.0) mmol/L Calcium 7.2 L (8.4-10.2) mg/dL Magnesium 2.6 H (1.6-2.3) mg/dL AST 238 H (17-59) U/L ALT 163 H (4-49) U/L Troponin I (0.000-0.034) ng/mL Total Protein 5.0 L (6.3-8.2) g/dL Albumin 2.8 L (3.5-5.0) g/dL Urine Glucose (UA) (Negative) Urine Ketones (Negative) Urine Blood (Negative) Urine Bacteria (None) /hpf Urine Mucus (None) /hpf U Tricyclic Antidepress (NotDetected) U Benzodiazepines Scrn (NotDetected) 10/29/22 10/29/22 10/29/22 Range/Units 17:16 17:53 18:19 WBC (3.8-10.6) k/uL RBC (4.30-5.90) m/uL Hgb (13.0-17.5) gm/dL Neutrophils # (1.3-7.7) k/uL Lymphocytes # (1.0-4.8) k/uL Monocytes # (0-1.0) k/uL APTT (22.0-30.0) sec ABG pH 7.32 L (7.35-7.45) ABG pO2 (83-108) mmHg ABG Total CO2 (19-24) mmol/L ABG O2 Saturation (94-97) % Sodium (137-145) mmol/L Potassium (3.5-5.1) mmol/L Chloride (98-107) mmol/L Carbon Dioxide (22-30) mmol/L BUN (9-20) mg/dL Creatinine (0.66-1.25) mg/dL Glucose (74-99) mg/dL POC Glucose (mg/dL) 403 H (70-110) mg/dL Hemoglobin A1c (0.0-6.0) % Plasma Lactic Acid Aydin 3.0 H* (0.7-2.0) mmol/L Calcium (8.4-10.2) mg/dL Magnesium (1.6-2.3) mg/dL AST (17-59) U/L ALT (4-49) U/L Troponin I (0.000-0.034) ng/mL Total Protein (6.3-8.2) g/dL Albumin (3.5-5.0) g/dL Urine Glucose (UA) (Negative) Urine Ketones (Negative) Urine Blood (Negative) Urine Bacteria (None) /hpf Urine Mucus (None) /hpf U Tricyclic Antidepress (NotDetected) U Benzodiazepines Scrn (NotDetected) 10/29/22 10/29/22 10/29/22 Range/Units 18:19 18:35 20:36 WBC (3.8-10.6) k/uL RBC (4.30-5.90) m/uL Hgb (13.0-17.5) gm/dL Neutrophils # (1.3-7.7) k/uL Lymphocytes # (1.0-4.8) k/uL Monocytes # (0-1.0) k/uL APTT (22.0-30.0) sec ABG pH (7.35-7.45) ABG pO2 (83-108) mmHg ABG Total CO2 (19-24) mmol/L ABG O2 Saturation (94-97) % Sodium (137-145) mmol/L Potassium (3.5-5.1) mmol/L Chloride (98-107) mmol/L Carbon Dioxide (22-30) mmol/L BUN (9-20) mg/dL Creatinine (0.66-1.25) mg/dL Glucose (74-99) mg/dL POC Glucose (mg/dL) 400 H (70-110) mg/dL Hemoglobin A1c (0.0-6.0) % Plasma Lactic Acid Aydin (0.7-2.0) mmol/L Calcium (8.4-10.2) mg/dL Magnesium (1.6-2.3) mg/dL AST (17-59) U/L ALT (4-49) U/L Troponin I 1.100 H* (0.000-0.034) ng/mL Total Protein (6.3-8.2) g/dL Albumin (3.5-5.0) g/dL Urine Glucose (UA) 4+ H (Negative) Urine Ketones Trace H (Negative) Urine Blood Trace H (Negative) Urine Bacteria Rare H (None) /hpf Urine Mucus Rare H (None) /hpf U Tricyclic Antidepress (NotDetected) U Benzodiazepines Scrn (NotDetected) 10/29/22 10/29/22 10/29/22 Range/Units 21:11 21:11 21:11 WBC (3.8-10.6) k/uL RBC (4.30-5.90) m/uL Hgb (13.0-17.5) gm/dL Neutrophils # (1.3-7.7) k/uL Lymphocytes # (1.0-4.8) k/uL Monocytes # (0-1.0) k/uL APTT 53.5 H (22.0-30.0) sec ABG pH (7.35-7.45) ABG pO2 (83-108) mmHg ABG Total CO2 (19-24) mmol/L ABG O2 Saturation (94-97) % Sodium (137-145) mmol/L Potassium (3.5-5.1) mmol/L Chloride (98-107) mmol/L Carbon Dioxide (22-30) mmol/L BUN (9-20) mg/dL Creatinine (0.66-1.25) mg/dL Glucose (74-99) mg/dL POC Glucose (mg/dL) (70-110) mg/dL Hemoglobin A1c 10.2 H (0.0-6.0) % Plasma Lactic Acid Aydin 2.1 H* (0.7-2.0) mmol/L Calcium (8.4-10.2) mg/dL Magnesium (1.6-2.3) mg/dL AST (17-59) U/L ALT (4-49) U/L Troponin I (0.000-0.034) ng/mL Total Protein (6.3-8.2) g/dL Albumin (3.5-5.0) g/dL Urine Glucose (UA) (Negative) Urine Ketones (Negative) Urine Blood (Negative) Urine Bacteria (None) /hpf Urine Mucus (None) /hpf U Tricyclic Antidepress (NotDetected) U Benzodiazepines Scrn (NotDetected) 10/29/22 10/29/22 10/30/22 Range/Units 21:56 23:01 00:01 WBC (3.8-10.6) k/uL RBC (4.30-5.90) m/uL Hgb (13.0-17.5) gm/dL Neutrophils # (1.3-7.7) k/uL Lymphocytes # (1.0-4.8) k/uL Monocytes # (0-1.0) k/uL APTT (22.0-30.0) sec ABG pH (7.35-7.45) ABG pO2 (83-108) mmHg ABG Total CO2 (19-24) mmol/L ABG O2 Saturation (94-97) % Sodium (137-145) mmol/L Potassium (3.5-5.1) mmol/L Chloride (98-107) mmol/L Carbon Dioxide (22-30) mmol/L BUN (9-20) mg/dL Creatinine (0.66-1.25) mg/dL Glucose (74-99) mg/dL POC Glucose (mg/dL) 370 H 303 H 235 H (70-110) mg/dL Hemoglobin A1c (0.0-6.0) % Plasma Lactic Acid Aydin (0.7-2.0) mmol/L Calcium (8.4-10.2) mg/dL Magnesium (1.6-2.3) mg/dL AST (17-59) U/L ALT (4-49) U/L Troponin I (0.000-0.034) ng/mL Total Protein (6.3-8.2) g/dL Albumin (3.5-5.0) g/dL Urine Glucose (UA) (Negative) Urine Ketones (Negative) Urine Blood (Negative) Urine Bacteria (None) /hpf Urine Mucus (None) /hpf U Tricyclic Antidepress (NotDetected) U Benzodiazepines Scrn (NotDetected) 10/30/22 10/30/22 10/30/22 Range/Units 00:59 01:05 01:05 WBC (3.8-10.6) k/uL RBC (4.30-5.90) m/uL Hgb (13.0-17.5) gm/dL Neutrophils # (1.3-7.7) k/uL Lymphocytes # (1.0-4.8) k/uL Monocytes # (0-1.0) k/uL APTT (22.0-30.0) sec ABG pH (7.35-7.45) ABG pO2 (83-108) mmHg ABG Total CO2 (19-24) mmol/L ABG O2 Saturation (94-97) % Sodium (137-145) mmol/L Potassium 5.5 H (3.5-5.1) mmol/L Chloride (98-107) mmol/L Carbon Dioxide (22-30) mmol/L BUN (9-20) mg/dL Creatinine (0.66-1.25) mg/dL Glucose (74-99) mg/dL POC Glucose (mg/dL) 157 H (70-110) mg/dL Hemoglobin A1c (0.0-6.0) % Plasma Lactic Acid Aydin 3.3 H* (0.7-2.0) mmol/L Calcium (8.4-10.2) mg/dL Magnesium (1.6-2.3) mg/dL AST (17-59) U/L ALT (4-49) U/L Troponin I (0.000-0.034) ng/mL Total Protein (6.3-8.2) g/dL Albumin (3.5-5.0) g/dL Urine Glucose (UA) (Negative) Urine Ketones (Negative) Urine Blood (Negative) Urine Bacteria (None) /hpf Urine Mucus (None) /hpf U Tricyclic Antidepress (NotDetected) U Benzodiazepines Scrn (NotDetected) 10/30/22 10/30/22 10/30/22 Range/Units 02:02 02:53 03:06 WBC (3.8-10.6) k/uL RBC (4.30-5.90) m/uL Hgb (13.0-17.5) gm/dL Neutrophils # (1.3-7.7) k/uL Lymphocytes # (1.0-4.8) k/uL Monocytes # (0-1.0) k/uL APTT (22.0-30.0) sec ABG pH (7.35-7.45) ABG pO2 330 H (83-108) mmHg ABG Total CO2 26 H (19-24) mmol/L ABG O2 Saturation 99.2 H (94-97) % Sodium (137-145) mmol/L Potassium (3.5-5.1) mmol/L Chloride (98-107) mmol/L Carbon Dioxide (22-30) mmol/L BUN (9-20) mg/dL Creatinine (0.66-1.25) mg/dL Glucose (74-99) mg/dL POC Glucose (mg/dL) 192 H 117 H (70-110) mg/dL Hemoglobin A1c (0.0-6.0) % Plasma Lactic Acid Aydin (0.7-2.0) mmol/L Calcium (8.4-10.2) mg/dL Magnesium (1.6-2.3) mg/dL AST (17-59) U/L ALT (4-49) U/L Troponin I (0.000-0.034) ng/mL Total Protein (6.3-8.2) g/dL Albumin (3.5-5.0) g/dL Urine Glucose (UA) (Negative) Urine Ketones (Negative) Urine Blood (Negative) Urine Bacteria (None) /hpf Urine Mucus (None) /hpf U Tricyclic Antidepress (NotDetected) U Benzodiazepines Scrn (NotDetected) 10/30/22 10/30/22 10/30/22 Range/Units 03:37 03:37 03:37 WBC 16.5 H (3.8-10.6) k/uL RBC (4.30-5.90) m/uL Hgb (13.0-17.5) gm/dL Neutrophils # 14.4 H (1.3-7.7) k/uL Lymphocytes # 0.6 L (1.0-4.8) k/uL Monocytes # 1.3 H (0-1.0) k/uL APTT (22.0-30.0) sec ABG pH (7.35-7.45) ABG pO2 (83-108) mmHg ABG Total CO2 (19-24) mmol/L ABG O2 Saturation (94-97) % Sodium (137-145) mmol/L Potassium (3.5-5.1) mmol/L Chloride 108 H (98-107) mmol/L Carbon Dioxide (22-30) mmol/L BUN 31 H (9-20) mg/dL Creatinine (0.66-1.25) mg/dL Glucose 128 H (74-99) mg/dL POC Glucose (mg/dL) (70-110) mg/dL Hemoglobin A1c (0.0-6.0) % Plasma Lactic Acid Aydin (0.7-2.0) mmol/L Calcium 8.3 L (8.4-10.2) mg/dL Magnesium (1.6-2.3) mg/dL AST 227 H (17-59) U/L ALT 241 H (4-49) U/L Troponin I 2.650 H* (0.000-0.034) ng/mL Total Protein 5.2 L (6.3-8.2) g/dL Albumin 2.9 L (3.5-5.0) g/dL Urine Glucose (UA) (Negative) Urine Ketones (Negative) Urine Blood (Negative) Urine Bacteria (None) /hpf Urine Mucus (None) /hpf U Tricyclic Antidepress (NotDetected) U Benzodiazepines Scrn (NotDetected) 10/30/22 10/30/22 10/30/22 Range/Units 04:06 05:46 05:46 WBC (3.8-10.6) k/uL RBC (4.30-5.90) m/uL Hgb (13.0-17.5) gm/dL Neutrophils # (1.3-7.7) k/uL Lymphocytes # (1.0-4.8) k/uL Monocytes # (0-1.0) k/uL APTT 69.2 H (22.0-30.0) sec ABG pH (7.35-7.45) ABG pO2 (83-108) mmHg ABG Total CO2 (19-24) mmol/L ABG O2 Saturation (94-97) % Sodium (137-145) mmol/L Potassium (3.5-5.1) mmol/L Chloride (98-107) mmol/L Carbon Dioxide (22-30) mmol/L BUN (9-20) mg/dL Creatinine (0.66-1.25) mg/dL Glucose (74-99) mg/dL POC Glucose (mg/dL) 152 H (70-110) mg/dL Hemoglobin A1c (0.0-6.0) % Plasma Lactic Acid Aydin 2.7 H* (0.7-2.0) mmol/L Calcium (8.4-10.2) mg/dL Magnesium (1.6-2.3) mg/dL AST (17-59) U/L ALT (4-49) U/L Troponin I (0.000-0.034) ng/mL Total Protein (6.3-8.2) g/dL Albumin (3.5-5.0) g/dL Urine Glucose (UA) (Negative) Urine Ketones (Negative) Urine Blood (Negative) Urine Bacteria (None) /hpf Urine Mucus (None) /hpf U Tricyclic Antidepress (NotDetected) U Benzodiazepines Scrn (NotDetected) 10/30/22 10/30/22 Range/Units 05:56 06:55 WBC (3.8-10.6) k/uL RBC (4.30-5.90) m/uL Hgb (13.0-17.5) gm/dL Neutrophils # (1.3-7.7) k/uL Lymphocytes # (1.0-4.8) k/uL Monocytes # (0-1.0) k/uL APTT (22.0-30.0) sec ABG pH (7.35-7.45) ABG pO2 (83-108) mmHg ABG Total CO2 (19-24) mmol/L ABG O2 Saturation (94-97) % Sodium (137-145) mmol/L Potassium (3.5-5.1) mmol/L Chloride (98-107) mmol/L Carbon Dioxide (22-30) mmol/L BUN (9-20) mg/dL Creatinine (0.66-1.25) mg/dL Glucose (74-99) mg/dL POC Glucose (mg/dL) 165 H (70-110) mg/dL Hemoglobin A1c (0.0-6.0) % Plasma Lactic Acid Aydin (0.7-2.0) mmol/L Calcium (8.4-10.2) mg/dL Magnesium (1.6-2.3) mg/dL AST (17-59) U/L ALT (4-49) U/L Troponin I (0.000-0.034) ng/mL Total Protein (6.3-8.2) g/dL Albumin (3.5-5.0) g/dL Urine Glucose (UA) (Negative) Urine Ketones (Negative) Urine Blood (Negative) Urine Bacteria (None) /hpf Urine Mucus (None) /hpf U Tricyclic Antidepress Detected H (NotDetected) U Benzodiazepines Scrn Detected H (NotDetected) Microbiology - Last 24 Hours (Table) 10/29/22 17:56 Sputum Culture - Preliminary Sputum Assessment and Plan Plan: Cardiac arrest, witnessed, CPR and resuscitation was initiated on the scene and the patient was brought into the emergency department where CPR resuscitation was continued and there was return respiratory circulation probably within 35 minutes. The patient received AID shocks initially, subsequent epinephrine doses, amiodarone, defibrillation and ultimately there was return of spontaneous circulation. The patient is currently hemodynamically stable on no pressors. Suspect anoxic encephalopathy due to prolonged downtime. Echocardiogram showed a preserved LV function, some inferior wall hypokinesis. Acute STEMI, inferior wall myocardial infarction, troponin peaked at 2.6 and the patient remains on IV heparin and aspirin Acute hypoxic respiratory failure secondary to above Anoxic encephalopathy/Unresponsiveness/due to cardiac arrest and the patient is currently on low-dose propofol to maintain secondary with a mechanical ventilator Acute pulmonary edema with bilateral pulmonary infiltrates and cephalization based on the chest x-ray, improved Acute kidney injury, improved and the creatinine is down to 1.1 Acute lactic acidosis secondary to above Diabetes mellitus type 2 with hyperglycemia secondary to above., Started on insulin drip for blood sugar control Hypertension Plan Cardiology is already evaluated the patient and declined cardiac catheterization based on his prolonged downtime We'll treat this patient medically Continue vent support for now No changes in the mechanical ventilator other than weaning of FiO2. We'll gradually wean down FiO2. Wean the patient off the sedation and assess underlying mental status EEG today Continue Keppra Continue IV heparin for another 24 hours Continue aspirin 325 mg by mouth daily Start Coreg 12.5 mg by mouth twice a day Echocardiogram was noted CAT scan of the brain was noted and the findings of essentially negative Propofol if needed to maintain synchrony with mechanical ventilator Monitor temperature and avoid any hyperthermia Insulin drip for blood sugar control, blood sugars under better control and the patient may be potentially switch to sliding scale coverage. Not, we'll give him some baseline Levemir insulin for a positive blood sugar control Start the patient on Glucerna monitor feeding for nutritional support Lovenox 40 mg subcu portably prophylaxis No need for pressors Repeat EKG today to monitor that segment elevation inferior wall We'll continue to follow. This is highly critical and prognosis poor based above-mentioned comorbidities. Critical care evaluation , > 30min Time with Patient: Greater than 30
[2022-10-30 08:32] LABS: Glucose,Whole Blood 147 mg/dL (70-110)
[2022-10-30] MEDS: INSULIN ASPART (NovoLOG) 100 UNIT/ML VIAL SQ SCH ×4 (08:33→20:43)
[2022-10-30] MEDS ORDERED: carvediloL 12.5 MG TAB PO SCH (09:00)
[2022-10-30] MEDS: INSULIN DETEMIR (LEVEMIR) 100 UNIT/ML SYR SQ SCH ×2 (09:44→20:44)
[2022-10-30] MEDS: levETIRAcetam IV 1,000 MG in SALINE 1 100ML.BAG IVPB SCH ×2 (09:44→20:44)
[2022-10-30] MEDS: PANTOPRAZOLE 40 MG/10 ML VIAL IV SCH (09:45)
[2022-10-30] MEDS: CHLORHEXIDINE GLUCONATE 15 ML CUP MUCOUS MEM SCH ×2 (09:45→20:43)
[2022-10-30] MEDS: METOPROLOL TARTRATE 50 MG TAB PO SCH ×2 (09:51→20:44)
[2022-10-30] MEDS: ASPIRIN 325 MG TAB PO SCH (09:51)
--- NOTE | 2022-10-30 10:27 | P.HPIM ---
History of Present Illness H&P Date: 10/29/22 Chief Complaint: Cardiac arrest 62-year-old male patient presented to ED with cardiac arrest which was witnessed by a coworker patient was working at the near by of [employer]; CPR was started resulting in return of spontaneous circulation; in the ED patient went into VT/fibrillation and required defibrillation and was coded for another 5 minutes after which she had return of spontaneous circulation; total downtime is estimated to be around 35 minutes The patient was apparently pulseless of the time of arrival to the emergency department. Subsequently, he regained blood pressure and his most recent blood pressure 190/100. The patient is currently intubated on a mechanical ventilator. EKG showed a inferior wall ST segment elevation myocardial infarction. Cardiology was informed. Cardiac catheterization was declined based on his prolonged downtime. In ICU patient remains on mechanical ventilator with post intubation chest x-ray reveals pulmonary edema with ET tube in good position Echocardiogram has been ordered and pending His initial troponin set was negative. Blood work reveals a WBC of 6.3 with a hemoglobin 12.7 and a platelet count of 360. Normal chemical profile. Bicarbs at 17 with a BUN of 27 and a creatinine of 1.47. Lactic acid level was at 8.5. Glucose of 471. Review of Systems ROS unobtainable: due to endotracheal tube, due to mental status Medications and Allergies Home Medications Medication Instructions Recorded Confirmed Type Empagliflozin [Jardiance] 25 mg PO DAILY 10/29/22 10/29/22 History Insulin Degludec [Tresiba 20 units SQ HS 10/29/22 10/29/22 History Flextouch U-100 Pen] Nortriptyline [Pamelor] 25 mg PO BID 10/29/22 10/29/22 History OXcarbazepine [Trileptal] 300 mg PO DAILY 10/29/22 10/29/22 History carvediloL [Coreg] 12.5 mg PO BID 10/29/22 10/29/22 History lisinopriL [Prinivil] 20 mg PO DAILY 10/29/22 10/29/22 History metFORMIN HCL [Glucophage] 1,000 mg PO BID 10/29/22 10/29/22 History Allergies Allergy/AdvReac Type Severity Reaction Status Date / Time No Known Allergies Allergy Unverified 10/29/22 15:00 Physical Exam Vitals: Vital Signs Pulse Resp BP FiO2 10/29/22 14:58 100 10/29/22 14:43 100 10/29/22 14:40 109 H 24 155/98 Intake and Output 10/29/22 10/29/22 10/29/22 06:59 14:59 22:59 Other: Weight 81.647 kg PHYSICAL EXAMINATION: GENERAL: The patient is intubated and mechanically ventilated; patient has an oral gastric and oral tracheal tube in place HEENT: Pupils are round and equally reacting to light. EOMI. No scleral icterus. No conjunctival pallor. Normocephalic, atraumatic. No pharyngeal erythema. No thyromegaly. CARDIOVASCULAR: S1 and S2 present. No murmurs, rubs, or gallops. PULMONARY: Chest is clear to auscultation, no wheezing or crackles. ABDOMEN: Soft, nontender, nondistended, normoactive bowel sounds. No palpable organomegaly. MUSCULOSKELETAL: No joint swelling or deformity. EXTREMITIES: No cyanosis, clubbing, or pedal edema. NEUROLOGICAL: Unable to evaluate; patient remains unresponsive SKIN: No rashes. Results CBC & Chem 7: 10/30/22 03:37 10/30/22 03:37 Labs: Abnormal Lab Results - Last 24 Hours (Table) 10/29/22 10/29/22 10/29/22 Range/Units 14:30 14:30 14:30 RBC 4.18 L (4.30-5.90) m/uL Hgb 12.7 L (13.0-17.5) gm/dL Sodium 131 L (137-145) mmol/L Carbon Dioxide 17 L (22-30) mmol/L BUN 27 H (9-20) mg/dL Creatinine 1.47 H (0.66-1.25) mg/dL Glucose 471 H (74-99) mg/dL Plasma Lactic Acid Aydin 8.5 H* (0.7-2.0) mmol/L Calcium 7.2 L (8.4-10.2) mg/dL Magnesium 2.6 H (1.6-2.3) mg/dL AST 238 H (17-59) U/L ALT 163 H (4-49) U/L Total Protein 5.0 L (6.3-8.2) g/dL Albumin 2.8 L (3.5-5.0) g/dL Assessment and Plan Assessment: 1. Acute STEMI, inferior wall myocardial infarction; Cardiac arrest, witnessed, CPR and resuscitation was initiated on the scene and the patient was brought into the emergency department where CPR resuscitation was continued and there was return respiratory circulation probably within 35 minutes. -- Cardiology is already evaluated the patient and declined cardiac catheterization based on his prolonged downtime - Patient is to be treated medically; remains on IV heparin per protocol and asp irin; cardiology recommending to start patient on metoprolol 50 mg twice a day - Echocardiogram is ordered and pending 2. Acute toxic respiratory failure; vent dependent; secondary to above; plan is to continue with mechanical ventilator; plan to gradually weaned down FiO2; blood gases will be monitored 3. Unresponsiveness/comatose state, likely secondary to underlying anoxic encephalopathy; computed tomography scan of the pain is ordered 4. Acute pulmonary edema with bilateral pulmonary infiltrates and cephalization based on the chest x-ray; patient received Lasix 40 mg IV 1 - Echocardiogram is ordered and pending; further recommendations once echocardiogram results are available 5. Acute kidney injury; we will continue to monitor strict ARIADNE's, daily weights, renal function and electrolytes; avoid nephrotoxins; hold off on IV fluid hydration given pulmonary edema 6. Acute lactic acidosis secondary to above; likely related to dehydration 7. Hyperglycemia/Diabetes mellitus type 2 with hyperglycemia secondary to above; for now patient is in placed an IV insulin infusion; we will monitor CBC, CMP and progesterone 8. Hypertension; patient has been placed on metoprolol 50 mg twice a day; continue with hydralazine 10 mg IV every 4-6 hours when necessary for systolic blood pressure greater than 160 DVT prophylaxis; SCDs/IV heparin CODE STATUS; full code
--- NOTE | 2022-10-30 10:29 | P.PN ---
Subjective Progress Note Date: 10/30/22 IMPRESSION / ASSESSMENT: Out of hospital cardiac arrest witnessed by coworkers CPR begun at work and automatic external defibrillator recommended shock. 2 shocks were given EMS arrived after about 25 minutes. Patient was in PEA when EMS arrived, which with 4 rounds of epinephrine and amiodarone Later went into ventricular tachycardia and required defibrillation again He was pulseless when he arrived to the ER, received defibrillation and coated for 5-10 minutes Total down time 35 minutes Pupils nonreactive to light, blood pressure maintained heart rates normal Twelve-lead EKG shows ST elevation in the inferior leads and V6 T-wave inversions in the high lateral leads Urgent echo revealed absence of pericardial effusion and normal LV function Patient maintained normal blood pressure thereafter Treated with IV heparin statins aspirin and Plavix Coronary intervention not recommended given the in anoxic brain injury and the down time of more than 30 minutes with recurrent PEA Discussed with compress machine operator Dr. Franco who is in agreement hock liver and acute kidney injury consistent with the extent of his down time and set of cardiac shock. This is now reversed completely and he is perfusing well Stable from a cardiovascular standpoint and able to maintain his blood pressure and rhythm but neurologically appears to have had anoxic brain injury with some residual brainstem function 10/30 Patient is seen today in follow-up in the intensive care unit. Patient is intubated on mechanical ventilation. Patient is on a propofol and withdraws from pain. Plan is for holiday to assess his mental status. He remains on heparin drip which will be continued. Heart rate is in the 90s and blood pressure 128/73. Repeat troponins were 1.1 and 2.65. No further episodes of V. tach or V. fib. Echocardiogram reveals EF of 55% with mild mid inferior hypokinesis. No mitral regurgitation. Trivial pericardial effusion. Trace tricuspid regurgitation. PLAN: Continue IV heparin, aspirin and Plavix and statins Start patient on metoprolol 50 mg twice daily, blood pressure is stable He is currently a propofol drip and is receiving Keppra, for possible seizure- like activity, per neurology Maintain mean arterial pressure around 80 mmHg, avoid hypotension Keep: Body temperature around 36. Heating blanket removed HPI Patient had an out of hospital cardiac arrest and was brought to the ER I spoke to the EMS personnel and they stated that they arrived 25 minutes after he was down. When they arrived he was in PEA. Multiple rounds of epinephrine given Subsequently he did: 2 VT/VF and required repeat shocks He did not have a pulse when he arrived in the ER He was coded for about 10 minutes and thereafter he has maintained perfusion, normal blood pressure normal heart rates Unfortunately his pupils a virtually fixed. He does not withdraw to pain in the ER He is ventilator dependent He was treated with aspirin and Plavix atorvastatin and IV heparin Given the duration of the down time and his anoxic brain injury, coronary angiography was brought recommended Blood pressure was in normal range in the ER heart rates are normal in the 70s (EKG showed 1-[address] elevation in the inferior leads and V6 with T-wave inversions in high lateral leads Subsequently his 2-D echo showed preserved LV systolic function with mild inferior wall hypokinesis Nurse practitioner note has been reviewed, I agree with the documented findings and plan of care. Patient was seen and examined Objective - Vital Signs Vital signs: Vital Signs Temp 99.0 F 10/30/22 06:00 Pulse 92 10/30/22 07:30 Resp 20 10/30/22 07:30 BP 128/73 10/30/22 07:30 Pulse Ox 99 10/30/22 07:30 FiO2 50 10/30/22 07:38 Intake & Output 10/29/22 10/30/22 10/30/22 18:59 06:59 18:59 Intake Total 470.504 4798.429 70 Output Total 300 980 45 Balance -167.061 27.429 25 Weight 70.8 kg 70.8 kg Intake: IV 130 860 70 Sodium Chloride 0.9% 1, 130 660 70 000 ml @ 130 mls/hr IV . [id number] MARCELINA Rx#:[id number] levETIRAcetam IV 1,000 mg 200 In Saline 1 100ml.bag @ 400 mls/hr IVPB ONCE [facility] Rx#:[id number] Intake, IV Titration 2.939 147.429 Amount Insulin Regular 100 unit 26.772 In Sodium Chloride 0.9% 100 ml @ Titrate IV .Q0M MARCELINA Rx#:[id number] propofoL 1,000 mg In 2.939 120.657 Empty Bag 1 bag @ 15 MCG/ KG/MIN 7.348 mls/hr IV . [id number] MARCELINA Rx#:[id number] Tube Feeding 0 Other 0 Output: Gastric Drainage 100 Urine 300 880 45 Other: Voiding Method Indwelling Catheter - Labs CBC & Chem 7: 10/30/22 03:37 10/30/22 03:37 Labs: Abnormal Lab Results - Last 24 Hours (Table) 10/29/22 10/29/22 10/29/22 Range/Units 14:30 14:30 14:30 WBC (3.8-10.6) k/uL RBC 4.18 L (4.30-5.90) m/uL Hgb 12.7 L (13.0-17.5) gm/dL Neutrophils # (1.3-7.7) k/uL Lymphocytes # (1.0-4.8) k/uL Monocytes # (0-1.0) k/uL APTT (22.0-30.0) sec ABG pH (7.35-7.45) ABG pO2 (83-108) mmHg ABG Total CO2 (19-24) mmol/L ABG O2 Saturation (94-97) % Sodium 131 L (137-145) mmol/L Potassium (3.5-5.1) mmol/L Chloride (98-107) mmol/L Carbon Dioxide 17 L (22-30) mmol/L BUN 27 H (9-20) mg/dL Creatinine 1.47 H (0.66-1.25) mg/dL Glucose 471 H (74-99) mg/dL POC Glucose (mg/dL) (70-110) mg/dL Hemoglobin A1c (0.0-6.0) % Plasma Lactic Acid Aydin 8.5 H* (0.7-2.0) mmol/L Calcium 7.2 L (8.4-10.2) mg/dL Magnesium 2.6 H (1.6-2.3) mg/dL AST 238 H (17-59) U/L ALT 163 H (4-49) U/L Troponin I (0.000-0.034) ng/mL Total Protein 5.0 L (6.3-8.2) g/dL Albumin 2.8 L (3.5-5.0) g/dL Urine Glucose (UA) (Negative) Urine Ketones (Negative) Urine Blood (Negative) Urine Bacteria (None) /hpf Urine Mucus (None) /hpf U Tricyclic Antidepress (NotDetected) U Benzodiazepines Scrn (NotDetected) 10/29/22 10/29/22 10/29/22 Range/Units 17:16 17:53 18:19 WBC (3.8-10.6) k/uL RBC (4.30-5.90) m/uL Hgb (13.0-17.5) gm/dL Neutrophils # (1.3-7.7) k/uL Lymphocytes # (1.0-4.8) k/uL Monocytes # (0-1.0) k/uL APTT (22.0-30.0) sec ABG pH 7.32 L (7.35-7.45) ABG pO2 (83-108) mmHg ABG Total CO2 (19-24) mmol/L ABG O2 Saturation (94-97) % Sodium (137-145) mmol/L Potassium (3.5-5.1) mmol/L Chloride (98-107) mmol/L Carbon Dioxide (22-30) mmol/L BUN (9-20) mg/dL Creatinine (0.66-1.25) mg/dL Glucose (74-99) mg/dL POC Glucose (mg/dL) 403 H (70-110) mg/dL Hemoglobin A1c (0.0-6.0) % Plasma Lactic Acid Aydin 3.0 H* (0.7-2.0) mmol/L Calcium (8.4-10.2) mg/dL Magnesium (1.6-2.3) mg/dL AST (17-59) U/L ALT (4-49) U/L Troponin I (0.000-0.034) ng/mL Total Protein (6.3-8.2) g/dL Albumin (3.5-5.0) g/dL Urine Glucose (UA) (Negative) Urine Ketones (Negative) Urine Blood (Negative) Urine Bacteria (None) /hpf Urine Mucus (None) /hpf U Tricyclic Antidepress (NotDetected) U Benzodiazepines Scrn (NotDetected) 10/29/22 10/29/22 10/29/22 Range/Units 18:19 18:35 20:36 WBC (3.8-10.6) k/uL RBC (4.30-5.90) m/uL Hgb (13.0-17.5) gm/dL Neutrophils # (1.3-7.7) k/uL Lymphocytes # (1.0-4.8) k/uL Monocytes # (0-1.0) k/uL APTT (22.0-30.0) sec ABG pH (7.35-7.45) ABG pO2 (83-108) mmHg ABG Total CO2 (19-24) mmol/L ABG O2 Saturation (94-97) % Sodium (137-145) mmol/L Potassium (3.5-5.1) mmol/L Chloride (98-107) mmol/L Carbon Dioxide (22-30) mmol/L BUN (9-20) mg/dL Creatinine (0.66-1.25) mg/dL Glucose (74-99) mg/dL POC Glucose (mg/dL) 400 H (70-110) mg/dL Hemoglobin A1c (0.0-6.0) % Plasma Lactic Acid Aydin (0.7-2.0) mmol/L Calcium (8.4-10.2) mg/dL Magnesium (1.6-2.3) mg/dL AST (17-59) U/L ALT (4-49) U/L Troponin I 1.100 H* (0.000-0.034) ng/mL Total Protein (6.3-8.2) g/dL Albumin (3.5-5.0) g/dL Urine Glucose (UA) 4+ H (Negative) Urine Ketones Trace H (Negative) Urine Blood Trace H (Negative) Urine Bacteria Rare H (None) /hpf Urine Mucus Rare H (None) /hpf U Tricyclic Antidepress (NotDetected) U Benzodiazepines Scrn (NotDetected) 10/29/22 10/29/22 10/29/22 Range/Units 21:11 21:11 21:11 WBC (3.8-10.6) k/uL RBC (4.30-5.90) m/uL Hgb (13.0-17.5) gm/dL Neutrophils # (1.3-7.7) k/uL Lymphocytes # (1.0-4.8) k/uL Monocytes # (0-1.0) k/uL APTT 53.5 H (22.0-30.0) sec ABG pH (7.35-7.45) ABG pO2 (83-108) mmHg ABG Total CO2 (19-24) mmol/L ABG O2 Saturation (94-97) % Sodium (137-145) mmol/L Potassium (3.5-5.1) mmol/L Chloride (98-107) mmol/L Carbon Dioxide (22-30) mmol/L BUN (9-20) mg/dL Creatinine (0.66-1.25) mg/dL Glucose (74-99) mg/dL POC Glucose (mg/dL) (70-110) mg/dL Hemoglobin A1c 10.2 H (0.0-6.0) % Plasma Lactic Acid Aydin 2.1 H* (0.7-2.0) mmol/L Calcium (8.4-10.2) mg/dL Magnesium (1.6-2.3) mg/dL AST (17-59) U/L ALT (4-49) U/L Troponin I (0.000-0.034) ng/mL Total Protein (6.3-8.2) g/dL Albumin (3.5-5.0) g/dL Urine Glucose (UA) (Negative) Urine Ketones (Negative) Urine Blood (Negative) Urine Bacteria (None) /hpf Urine Mucus (None) /hpf U Tricyclic Antidepress (NotDetected) U Benzodiazepines Scrn (NotDetected) 10/29/22 10/29/22 10/30/22 Range/Units 21:56 23:01 00:01 WBC (3.8-10.6) k/uL RBC (4.30-5.90) m/uL Hgb (13.0-17.5) gm/dL Neutrophils # (1.3-7.7) k/uL Lymphocytes # (1.0-4.8) k/uL Monocytes # (0-1.0) k/uL APTT (22.0-30.0) sec ABG pH (7.35-7.45) ABG pO2 (83-108) mmHg ABG Total CO2 (19-24) mmol/L ABG O2 Saturation (94-97) % Sodium (137-145) mmol/L Potassium (3.5-5.1) mmol/L Chloride (98-107) mmol/L Carbon Dioxide (22-30) mmol/L BUN (9-20) mg/dL Creatinine (0.66-1.25) mg/dL Glucose (74-99) mg/dL POC Glucose (mg/dL) 370 H 303 H 235 H (70-110) mg/dL Hemoglobin A1c (0.0-6.0) % Plasma Lactic Acid Aydin (0.7-2.0) mmol/L Calcium (8.4-10.2) mg/dL Magnesium (1.6-2.3) mg/dL AST (17-59) U/L ALT (4-49) U/L Troponin I (0.000-0.034) ng/mL Total Protein (6.3-8.2) g/dL Albumin (3.5-5.0) g/dL Urine Glucose (UA) (Negative) Urine Ketones (Negative) Urine Blood (Negative) Urine Bacteria (None) /hpf Urine Mucus (None) /hpf U Tricyclic Antidepress (NotDetected) U Benzodiazepines Scrn (NotDetected) 10/30/22 10/30/22 10/30/22 Range/Units 00:59 01:05 01:05 WBC (3.8-10.6) k/uL RBC (4.30-5.90) m/uL Hgb (13.0-17.5) gm/dL Neutrophils # (1.3-7.7) k/uL Lymphocytes # (1.0-4.8) k/uL Monocytes # (0-1.0) k/uL APTT (22.0-30.0) sec ABG pH (7.35-7.45) ABG pO2 (83-108) mmHg ABG Total CO2 (19-24) mmol/L ABG O2 Saturation (94-97) % Sodium (137-145) mmol/L Potassium 5.5 H (3.5-5.1) mmol/L Chloride (98-107) mmol/L Carbon Dioxide (22-30) mmol/L BUN (9-20) mg/dL Creatinine (0.66-1.25) mg/dL Glucose (74-99) mg/dL POC Glucose (mg/dL) 157 H (70-110) mg/dL Hemoglobin A1c (0.0-6.0) % Plasma Lactic Acid Aydin 3.3 H* (0.7-2.0) mmol/L Calcium (8.4-10.2) mg/dL Magnesium (1.6-2.3) mg/dL AST (17-59) U/L ALT (4-49) U/L Troponin I (0.000-0.034) ng/mL Total Protein (6.3-8.2) g/dL Albumin (3.5-5.0) g/dL Urine Glucose (UA) (Negative) Urine Ketones (Negative) Urine Blood (Negative) Urine Bacteria (None) /hpf Urine Mucus (None) /hpf U Tricyclic Antidepress (NotDetected) U Benzodiazepines Scrn (NotDetected) 10/30/22 10/30/22 10/30/22 Range/Units 02:02 02:53 03:06 WBC (3.8-10.6) k/uL RBC (4.30-5.90) m/uL Hgb (13.0-17.5) gm/dL Neutrophils # (1.3-7.7) k/uL Lymphocytes # (1.0-4.8) k/uL Monocytes # (0-1.0) k/uL APTT (22.0-30.0) sec ABG pH (7.35-7.45) ABG pO2 330 H (83-108) mmHg ABG Total CO2 26 H (19-24) mmol/L ABG O2 Saturation 99.2 H (94-97) % Sodium (137-145) mmol/L Potassium (3.5-5.1) mmol/L Chloride (98-107) mmol/L Carbon Dioxide (22-30) mmol/L BUN (9-20) mg/dL Creatinine (0.66-1.25) mg/dL Glucose (74-99) mg/dL POC Glucose (mg/dL) 192 H 117 H (70-110) mg/dL Hemoglobin A1c (0.0-6.0) % Plasma Lactic Acid Aydin (0.7-2.0) mmol/L Calcium (8.4-10.2) mg/dL Magnesium (1.6-2.3) mg/dL AST (17-59) U/L ALT (4-49) U/L Troponin I (0.000-0.034) ng/mL Total Protein (6.3-8.2) g/dL Albumin (3.5-5.0) g/dL Urine Glucose (UA) (Negative) Urine Ketones (Negative) Urine Blood (Negative) Urine Bacteria (None) /hpf Urine Mucus (None) /hpf U Tricyclic Antidepress (NotDetected) U Benzodiazepines Scrn (NotDetected) 10/30/22 10/30/22 10/30/22 Range/Units 03:37 03:37 03:37 WBC 16.5 H (3.8-10.6) k/uL RBC (4.30-5.90) m/uL Hgb (13.0-17.5) gm/dL Neutrophils # 14.4 H (1.3-7.7) k/uL Lymphocytes # 0.6 L (1.0-4.8) k/uL Monocytes # 1.3 H (0-1.0) k/uL APTT (22.0-30.0) sec ABG pH (7.35-7.45) ABG pO2 (83-108) mmHg ABG Total CO2 (19-24) mmol/L ABG O2 Saturation (94-97) % Sodium (137-145) mmol/L Potassium (3.5-5.1) mmol/L Chloride 108 H (98-107) mmol/L Carbon Dioxide (22-30) mmol/L BUN 31 H (9-20) mg/dL Creatinine (0.66-1.25) mg/dL Glucose 128 H (74-99) mg/dL POC Glucose (mg/dL) (70-110) mg/dL Hemoglobin A1c (0.0-6.0) % Plasma Lactic Acid Aydin (0.7-2.0) mmol/L Calcium 8.3 L (8.4-10.2) mg/dL Magnesium (1.6-2.3) mg/dL AST 227 H (17-59) U/L ALT 241 H (4-49) U/L Troponin I 2.650 H* (0.000-0.034) ng/mL Total Protein 5.2 L (6.3-8.2) g/dL Albumin 2.9 L (3.5-5.0) g/dL Urine Glucose (UA) (Negative) Urine Ketones (Negative) Urine Blood (Negative) Urine Bacteria (None) /hpf Urine Mucus (None) /hpf U Tricyclic Antidepress (NotDetected) U Benzodiazepines Scrn (NotDetected) 10/30/22 10/30/22 10/30/22 Range/Units 04:06 05:46 05:46 WBC (3.8-10.6) k/uL RBC (4.30-5.90) m/uL Hgb (13.0-17.5) gm/dL Neutrophils # (1.3-7.7) k/uL Lymphocytes # (1.0-4.8) k/uL Monocytes # (0-1.0) k/uL APTT 69.2 H (22.0-30.0) sec ABG pH (7.35-7.45) ABG pO2 (83-108) mmHg ABG Total CO2 (19-24) mmol/L ABG O2 Saturation (94-97) % Sodium (137-145) mmol/L Potassium (3.5-5.1) mmol/L Chloride (98-107) mmol/L Carbon Dioxide (22-30) mmol/L BUN (9-20) mg/dL Creatinine (0.66-1.25) mg/dL Glucose (74-99) mg/dL POC Glucose (mg/dL) 152 H (70-110) mg/dL Hemoglobin A1c (0.0-6.0) % Plasma Lactic Acid Aydin 2.7 H* (0.7-2.0) mmol/L Calcium (8.4-10.2) mg/dL Magnesium (1.6-2.3) mg/dL AST (17-59) U/L ALT (4-49) U/L Troponin I (0.000-0.034) ng/mL Total Protein (6.3-8.2) g/dL Albumin (3.5-5.0) g/dL Urine Glucose (UA) (Negative) Urine Ketones (Negative) Urine Blood (Negative) Urine Bacteria (None) /hpf Urine Mucus (None) /hpf U Tricyclic Antidepress (NotDetected) U Benzodiazepines Scrn (NotDetected) 10/30/22 10/30/22 10/30/22 Range/Units 05:56 06:55 08:31 WBC (3.8-10.6) k/uL RBC (4.30-5.90) m/uL Hgb (13.0-17.5) gm/dL Neutrophils # (1.3-7.7) k/uL Lymphocytes # (1.0-4.8) k/uL Monocytes # (0-1.0) k/uL APTT (22.0-30.0) sec ABG pH (7.35-7.45) ABG pO2 (83-108) mmHg ABG Total CO2 (19-24) mmol/L ABG O2 Saturation (94-97) % Sodium (137-145) mmol/L Potassium (3.5-5.1) mmol/L Chloride (98-107) mmol/L Carbon Dioxide (22-30) mmol/L BUN (9-20) mg/dL Creatinine (0.66-1.25) mg/dL Glucose (74-99) mg/dL POC Glucose (mg/dL) 165 H 147 H (70-110) mg/dL Hemoglobin A1c (0.0-6.0) % Plasma Lactic Acid Aydin (0.7-2.0) mmol/L Calcium (8.4-10.2) mg/dL Magnesium (1.6-2.3) mg/dL AST (17-59) U/L ALT (4-49) U/L Troponin I (0.000-0.034) ng/mL Total Protein (6.3-8.2) g/dL Albumin (3.5-5.0) g/dL Urine Glucose (UA) (Negative) Urine Ketones (Negative) Urine Blood (Negative) Urine Bacteria (None) /hpf Urine Mucus (None) /hpf U Tricyclic Antidepress Detected H (NotDetected) U Benzodiazepines Scrn Detected H (NotDetected) Microbiology - Last 24 Hours (Table) 10/29/22 17:56 Gram Stain - Preliminary Sputum Sputum Culture - Preliminary
[2022-10-30 11:44] LABS: Glucose,Whole Blood 146 mg/dL (70-110)
--- NOTE | 2022-10-30 12:16 | P.PN ---
Subjective Progress Note Date: 10/30/22 Yesterday in the late afternoon was notified by the patient and ICU nurse when she had him he was having facial tics twitching body twitching the and so I gave the patient on Ativan IV 4 mg, loaded the patient with the Keppra of total of 1750mg once and started the patient on IV Keppra. Then the patient was started on IV propofol I notified the nurse if he has any furthering twitching at the use of Versed and that was later notified by the nurse around 7 PM that the after going up on the IV propofol symptoms has resolved. Today is on IV Propofol 25mcg/kg/min and per nurse no further twitching but is having some rare right hand movement when he would move it side to side. He continues to be on IV heparin drip. Objective - Vital Signs Vital signs: Vital Signs Temp 97.6 F 10/30/22 08:00 Pulse 80 10/30/22 10:30 Resp 20 10/30/22 10:30 BP 140/86 10/30/22 10:30 Pulse Ox 100 10/30/22 10:30 FiO2 50 10/30/22 11:38 Intake & Output 10/29/22 10/30/22 10/30/22 18:59 06:59 18:59 Intake Total 761.071 5990.429 457.441 Output Total 300 980 250 Balance -167.061 27.429 207.441 Weight 70.8 kg 70.8 kg 70.8 kg Intake: IV 130 860 380 Sodium Chloride 0.9% 1, 130 660 280 000 ml @ 70 mls/hr IV . [id number] MARCELINA Rx#:[id number] levETIRAcetam IV 1,000 mg 200 100 In Saline 1 100ml.bag @ 400 mls/hr IVPB ONCE [facility] Rx#:[id number] Intake, IV Titration 2.939 147.429 77.441 Amount Insulin Regular 100 unit 26.772 In Sodium Chloride 0.9% 100 ml @ Titrate IV .Q0M MARCELINA Rx#:[id number] propofoL 1,000 mg In 2.939 120.657 77.441 Empty Bag 1 bag @ 15 MCG/ KG/MIN 7.348 mls/hr IV . [id number] MARCELINA Rx#:[id number] Tube Feeding 0 Other 0 Output: Gastric Drainage 100 Urine 300 880 250 Other: Voiding Method Indwelling Catheter Indwelling Catheter - Exam General: Does not appear in acute distress. Lung: Intubated on ventilator. Neuro Limited because of his condition and is on IV sedation IV Propofol 25mcg/kg/min Higher mental function: Is comatose. GCS6 (E1, VT1, M4) Cranial Nerves: I had to manually open his eyes and was rolling back. Pupils are round about 2-3mm and reactive to light. No corneal reflex bilaterally. No facial weakness. Has intact gag reflex. Is not breathing over the vent when taking Vent setting from 20 to 1 AC. Motor: Strength is unable to assess but would localized to painful stimuli of bilateral uppers. No withdrawal of lowers. Decrease tone throughout. Sensory: Is able to localize to painful on uppers Some of the work-up during this hospital visit consisted of: TSH and ammonia level is within normal limits. Troponins trended up most current troponins 2.650. EKG is reported ST elevation, consider inferior injury. Acute ME CT of the head is reported as sinusitis. No acute intracranial abnormality no hemorrhage. - Labs CBC & Chem 7: 10/30/22 03:37 10/30/22 03:37 Labs: Abnormal Lab Results - Last 24 Hours (Table) 10/29/22 10/29/22 10/29/22 Range/Units 14:30 14:30 14:30 WBC (3.8-10.6) k/uL RBC 4.18 L (4.30-5.90) m/uL Hgb 12.7 L (13.0-17.5) gm/dL Neutrophils # (1.3-7.7) k/uL Lymphocytes # (1.0-4.8) k/uL Monocytes # (0-1.0) k/uL APTT (22.0-30.0) sec ABG pH (7.35-7.45) ABG pO2 (83-108) mmHg ABG Total CO2 (19-24) mmol/L ABG O2 Saturation (94-97) % Sodium 131 L (137-145) mmol/L Potassium (3.5-5.1) mmol/L Chloride (98-107) mmol/L Carbon Dioxide 17 L (22-30) mmol/L BUN 27 H (9-20) mg/dL Creatinine 1.47 H (0.66-1.25) mg/dL Glucose 471 H (74-99) mg/dL POC Glucose (mg/dL) (70-110) mg/dL Hemoglobin A1c (0.0-6.0) % Plasma Lactic Acid Aydin 8.5 H* (0.7-2.0) mmol/L Calcium 7.2 L (8.4-10.2) mg/dL Magnesium 2.6 H (1.6-2.3) mg/dL AST 238 H (17-59) U/L ALT 163 H (4-49) U/L Troponin I (0.000-0.034) ng/mL Total Protein 5.0 L (6.3-8.2) g/dL Albumin 2.8 L (3.5-5.0) g/dL Urine Glucose (UA) (Negative) Urine Ketones (Negative) Urine Blood (Negative) Urine Bacteria (None) /hpf Urine Mucus (None) /hpf U Tricyclic Antidepress (NotDetected) U Benzodiazepines Scrn (NotDetected) 10/29/22 10/29/22 10/29/22 Range/Units 17:16 17:53 18:19 WBC (3.8-10.6) k/uL RBC (4.30-5.90) m/uL Hgb (13.0-17.5) gm/dL Neutrophils # (1.3-7.7) k/uL Lymphocytes # (1.0-4.8) k/uL Monocytes # (0-1.0) k/uL APTT (22.0-30.0) sec ABG pH 7.32 L (7.35-7.45) ABG pO2 (83-108) mmHg ABG Total CO2 (19-24) mmol/L ABG O2 Saturation (94-97) % Sodium (137-145) mmol/L Potassium (3.5-5.1) mmol/L Chloride (98-107) mmol/L Carbon Dioxide (22-30) mmol/L BUN (9-20) mg/dL Creatinine (0.66-1.25) mg/dL Glucose (74-99) mg/dL POC Glucose (mg/dL) 403 H (70-110) mg/dL Hemoglobin A1c (0.0-6.0) % Plasma Lactic Acid Aydin 3.0 H* (0.7-2.0) mmol/L Calcium (8.4-10.2) mg/dL Magnesium (1.6-2.3) mg/dL AST (17-59) U/L ALT (4-49) U/L Troponin I (0.000-0.034) ng/mL Total Protein (6.3-8.2) g/dL Albumin (3.5-5.0) g/dL Urine Glucose (UA) (Negative) Urine Ketones (Negative) Urine Blood (Negative) Urine Bacteria (None) /hpf Urine Mucus (None) /hpf U Tricyclic Antidepress (NotDetected) U Benzodiazepines Scrn (NotDetected) 10/29/22 10/29/22 10/29/22 Range/Units 18:19 18:35 20:36 WBC (3.8-10.6) k/uL RBC (4.30-5.90) m/uL Hgb (13.0-17.5) gm/dL Neutrophils # (1.3-7.7) k/uL Lymphocytes # (1.0-4.8) k/uL Monocytes # (0-1.0) k/uL APTT (22.0-30.0) sec ABG pH (7.35-7.45) ABG pO2 (83-108) mmHg ABG Total CO2 (19-24) mmol/L ABG O2 Saturation (94-97) % Sodium (137-145) mmol/L Potassium (3.5-5.1) mmol/L Chloride (98-107) mmol/L Carbon Dioxide (22-30) mmol/L BUN (9-20) mg/dL Creatinine (0.66-1.25) mg/dL Glucose (74-99) mg/dL POC Glucose (mg/dL) 400 H (70-110) mg/dL Hemoglobin A1c (0.0-6.0) % Plasma Lactic Acid Aydin (0.7-2.0) mmol/L Calcium (8.4-10.2) mg/dL Magnesium (1.6-2.3) mg/dL AST (17-59) U/L ALT (4-49) U/L Troponin I 1.100 H* (0.000-0.034) ng/mL Total Protein (6.3-8.2) g/dL Albumin (3.5-5.0) g/dL Urine Glucose (UA) 4+ H (Negative) Urine Ketones Trace H (Negative) Urine Blood Trace H (Negative) Urine Bacteria Rare H (None) /hpf Urine Mucus Rare H (None) /hpf U Tricyclic Antidepress (NotDetected) U Benzodiazepines Scrn (NotDetected) 10/29/22 10/29/22 10/29/22 Range/Units 21:11 21:11 21:11 WBC (3.8-10.6) k/uL RBC (4.30-5.90) m/uL Hgb (13.0-17.5) gm/dL Neutrophils # (1.3-7.7) k/uL Lymphocytes # (1.0-4.8) k/uL Monocytes # (0-1.0) k/uL APTT 53.5 H (22.0-30.0) sec ABG pH (7.35-7.45) ABG pO2 (83-108) mmHg ABG Total CO2 (19-24) mmol/L ABG O2 Saturation (94-97) % Sodium (137-145) mmol/L Potassium (3.5-5.1) mmol/L Chloride (98-107) mmol/L Carbon Dioxide (22-30) mmol/L BUN (9-20) mg/dL Creatinine (0.66-1.25) mg/dL Glucose (74-99) mg/dL POC Glucose (mg/dL) (70-110) mg/dL Hemoglobin A1c 10.2 H (0.0-6.0) % Plasma Lactic Acid Aydin 2.1 H* (0.7-2.0) mmol/L Calcium (8.4-10.2) mg/dL Magnesium (1.6-2.3) mg/dL AST (17-59) U/L ALT (4-49) U/L Troponin I (0.000-0.034) ng/mL Total Protein (6.3-8.2) g/dL Albumin (3.5-5.0) g/dL Urine Glucose (UA) (Negative) Urine Ketones (Negative) Urine Blood (Negative) Urine Bacteria (None) /hpf Urine Mucus (None) /hpf U Tricyclic Antidepress (NotDetected) U Benzodiazepines Scrn (NotDetected) 10/29/22 10/29/22 10/30/22 Range/Units 21:56 23:01 00:01 WBC (3.8-10.6) k/uL RBC (4.30-5.90) m/uL Hgb (13.0-17.5) gm/dL Neutrophils # (1.3-7.7) k/uL Lymphocytes # (1.0-4.8) k/uL Monocytes # (0-1.0) k/uL APTT (22.0-30.0) sec ABG pH (7.35-7.45) ABG pO2 (83-108) mmHg ABG Total CO2 (19-24) mmol/L ABG O2 Saturation (94-97) % Sodium (137-145) mmol/L Potassium (3.5-5.1) mmol/L Chloride (98-107) mmol/L Carbon Dioxide (22-30) mmol/L BUN (9-20) mg/dL Creatinine (0.66-1.25) mg/dL Glucose (74-99) mg/dL POC Glucose (mg/dL) 370 H 303 H 235 H (70-110) mg/dL Hemoglobin A1c (0.0-6.0) % Plasma Lactic Acid Aydin (0.7-2.0) mmol/L Calcium (8.4-10.2) mg/dL Magnesium (1.6-2.3) mg/dL AST (17-59) U/L ALT (4-49) U/L Troponin I (0.000-0.034) ng/mL Total Protein (6.3-8.2) g/dL Albumin (3.5-5.0) g/dL Urine Glucose (UA) (Negative) Urine Ketones (Negative) Urine Blood (Negative) Urine Bacteria (None) /hpf Urine Mucus (None) /hpf U Tricyclic Antidepress (NotDetected) U Benzodiazepines Scrn (NotDetected) 10/30/22 10/30/22 10/30/22 Range/Units 00:59 01:05 01:05 WBC (3.8-10.6) k/uL RBC (4.30-5.90) m/uL Hgb (13.0-17.5) gm/dL Neutrophils # (1.3-7.7) k/uL Lymphocytes # (1.0-4.8) k/uL Monocytes # (0-1.0) k/uL APTT (22.0-30.0) sec ABG pH (7.35-7.45) ABG pO2 (83-108) mmHg ABG Total CO2 (19-24) mmol/L ABG O2 Saturation (94-97) % Sodium (137-145) mmol/L Potassium 5.5 H (3.5-5.1) mmol/L Chloride (98-107) mmol/L Carbon Dioxide (22-30) mmol/L BUN (9-20) mg/dL Creatinine (0.66-1.25) mg/dL Glucose (74-99) mg/dL POC Glucose (mg/dL) 157 H (70-110) mg/dL Hemoglobin A1c (0.0-6.0) % Plasma Lactic Acid Aydin 3.3 H* (0.7-2.0) mmol/L Calcium (8.4-10.2) mg/dL Magnesium (1.6-2.3) mg/dL AST (17-59) U/L ALT (4-49) U/L Troponin I (0.000-0.034) ng/mL Total Protein (6.3-8.2) g/dL Albumin (3.5-5.0) g/dL Urine Glucose (UA) (Negative) Urine Ketones (Negative) Urine Blood (Negative) Urine Bacteria (None) /hpf Urine Mucus (None) /hpf U Tricyclic Antidepress (NotDetected) U Benzodiazepines Scrn (NotDetected) 10/30/22 10/30/22 10/30/22 Range/Units 02:02 02:53 03:06 WBC (3.8-10.6) k/uL RBC (4.30-5.90) m/uL Hgb (13.0-17.5) gm/dL Neutrophils # (1.3-7.7) k/uL Lymphocytes # (1.0-4.8) k/uL Monocytes # (0-1.0) k/uL APTT (22.0-30.0) sec ABG pH (7.35-7.45) ABG pO2 330 H (83-108) mmHg ABG Total CO2 26 H (19-24) mmol/L ABG O2 Saturation 99.2 H (94-97) % Sodium (137-145) mmol/L Potassium (3.5-5.1) mmol/L Chloride (98-107) mmol/L Carbon Dioxide (22-30) mmol/L BUN (9-20) mg/dL Creatinine (0.66-1.25) mg/dL Glucose (74-99) mg/dL POC Glucose (mg/dL) 192 H 117 H (70-110) mg/dL Hemoglobin A1c (0.0-6.0) % Plasma Lactic Acid Aydin (0.7-2.0) mmol/L Calcium (8.4-10.2) mg/dL Magnesium (1.6-2.3) mg/dL AST (17-59) U/L ALT (4-49) U/L Troponin I (0.000-0.034) ng/mL Total Protein (6.3-8.2) g/dL Albumin (3.5-5.0) g/dL Urine Glucose (UA) (Negative) Urine Ketones (Negative) Urine Blood (Negative) Urine Bacteria (None) /hpf Urine Mucus (None) /hpf U Tricyclic Antidepress (NotDetected) U Benzodiazepines Scrn (NotDetected) 10/30/22 10/30/22 10/30/22 Range/Units 03:37 03:37 03:37 WBC 16.5 H (3.8-10.6) k/uL RBC (4.30-5.90) m/uL Hgb (13.0-17.5) gm/dL Neutrophils # 14.4 H (1.3-7.7) k/uL Lymphocytes # 0.6 L (1.0-4.8) k/uL Monocytes # 1.3 H (0-1.0) k/uL APTT (22.0-30.0) sec ABG pH (7.35-7.45) ABG pO2 (83-108) mmHg ABG Total CO2 (19-24) mmol/L ABG O2 Saturation (94-97) % Sodium (137-145) mmol/L Potassium (3.5-5.1) mmol/L Chloride 108 H (98-107) mmol/L Carbon Dioxide (22-30) mmol/L BUN 31 H (9-20) mg/dL Creatinine (0.66-1.25) mg/dL Glucose 128 H (74-99) mg/dL POC Glucose (mg/dL) (70-110) mg/dL Hemoglobin A1c 10.2 H (0.0-6.0) % Plasma Lactic Acid Aydin (0.7-2.0) mmol/L Calcium 8.3 L (8.4-10.2) mg/dL Magnesium (1.6-2.3) mg/dL AST 227 H (17-59) U/L ALT 241 H (4-49) U/L Troponin I (0.000-0.034) ng/mL Total Protein 5.2 L (6.3-8.2) g/dL Albumin 2.9 L (3.5-5.0) g/dL Urine Glucose (UA) (Negative) Urine Ketones (Negative) Urine Blood (Negative) Urine Bacteria (None) /hpf Urine Mucus (None) /hpf U Tricyclic Antidepress (NotDetected) U Benzodiazepines Scrn (NotDetected) 10/30/22 10/30/22 10/30/22 Range/Units 03:37 04:06 05:46 WBC (3.8-10.6) k/uL RBC (4.30-5.90) m/uL Hgb (13.0-17.5) gm/dL Neutrophils # (1.3-7.7) k/uL Lymphocytes # (1.0-4.8) k/uL Monocytes # (0-1.0) k/uL APTT 69.2 H (22.0-30.0) sec ABG pH (7.35-7.45) ABG pO2 (83-108) mmHg ABG Total CO2 (19-24) mmol/L ABG O2 Saturation (94-97) % Sodium (137-145) mmol/L Potassium (3.5-5.1) mmol/L Chloride (98-107) mmol/L Carbon Dioxide (22-30) mmol/L BUN (9-20) mg/dL Creatinine (0.66-1.25) mg/dL Glucose (74-99) mg/dL POC Glucose (mg/dL) 152 H (70-110) mg/dL Hemoglobin A1c (0.0-6.0) % Plasma Lactic Acid Aydin (0.7-2.0) mmol/L Calcium (8.4-10.2) mg/dL Magnesium (1.6-2.3) mg/dL AST (17-59) U/L ALT (4-49) U/L Troponin I 2.650 H* (0.000-0.034) ng/mL Total Protein (6.3-8.2) g/dL Albumin (3.5-5.0) g/dL Urine Glucose (UA) (Negative) Urine Ketones (Negative) Urine Blood (Negative) Urine Bacteria (None) /hpf Urine Mucus (None) /hpf U Tricyclic Antidepress (NotDetected) U Benzodiazepines Scrn (NotDetected) 10/30/22 10/30/22 10/30/22 Range/Units 05:46 05:56 06:55 WBC (3.8-10.6) k/uL RBC (4.30-5.90) m/uL Hgb (13.0-17.5) gm/dL Neutrophils # (1.3-7.7) k/uL Lymphocytes # (1.0-4.8) k/uL Monocytes # (0-1.0) k/uL APTT (22.0-30.0) sec ABG pH (7.35-7.45) ABG pO2 (83-108) mmHg ABG Total CO2 (19-24) mmol/L ABG O2 Saturation (94-97) % Sodium (137-145) mmol/L Potassium (3.5-5.1) mmol/L Chloride (98-107) mmol/L Carbon Dioxide (22-30) mmol/L BUN (9-20) mg/dL Creatinine (0.66-1.25) mg/dL Glucose (74-99) mg/dL POC Glucose (mg/dL) 165 H (70-110) mg/dL Hemoglobin A1c (0.0-6.0) % Plasma Lactic Acid Aydin 2.7 H* (0.7-2.0) mmol/L Calcium (8.4-10.2) mg/dL Magnesium (1.6-2.3) mg/dL AST (17-59) U/L ALT (4-49) U/L Troponin I (0.000-0.034) ng/mL Total Protein (6.3-8.2) g/dL Albumin (3.5-5.0) g/dL Urine Glucose (UA) (Negative) Urine Ketones (Negative) Urine Blood (Negative) Urine Bacteria (None) /hpf Urine Mucus (None) /hpf U Tricyclic Antidepress Detected H (NotDetected) U Benzodiazepines Scrn Detected H (NotDetected) 10/30/22 10/30/22 Range/Units 08:31 11:43 WBC (3.8-10.6) k/uL RBC (4.30-5.90) m/uL Hgb (13.0-17.5) gm/dL Neutrophils # (1.3-7.7) k/uL Lymphocytes # (1.0-4.8) k/uL Monocytes # (0-1.0) k/uL APTT (22.0-30.0) sec ABG pH (7.35-7.45) ABG pO2 (83-108) mmHg ABG Total CO2 (19-24) mmol/L ABG O2 Saturation (94-97) % Sodium (137-145) mmol/L Potassium (3.5-5.1) mmol/L Chloride (98-107) mmol/L Carbon Dioxide (22-30) mmol/L BUN (9-20) mg/dL Creatinine (0.66-1.25) mg/dL Glucose (74-99) mg/dL POC Glucose (mg/dL) 147 H 146 H (70-110) mg/dL Hemoglobin A1c (0.0-6.0) % Plasma Lactic Acid Aydin (0.7-2.0) mmol/L Calcium (8.4-10.2) mg/dL Magnesium (1.6-2.3) mg/dL AST (17-59) U/L ALT (4-49) U/L Troponin I (0.000-0.034) ng/mL Total Protein (6.3-8.2) g/dL Albumin (3.5-5.0) g/dL Urine Glucose (UA) (Negative) Urine Ketones (Negative) Urine Blood (Negative) Urine Bacteria (None) /hpf Urine Mucus (None) /hpf U Tricyclic Antidepress (NotDetected) U Benzodiazepines Scrn (NotDetected) Microbiology - Last 24 Hours (Table) 10/29/22 17:56 Gram Stain - Preliminary Sputum Sputum Culture - Preliminary Assessment and Plan Assessment: This is a 62-year-old gentleman with had a cardiopulmonary arrest while at work and was down time for a total of possibly 35 minutes. Cardiac arrest with a total downtown about 35 minutes. Patient had repored CPR immediately. Likely Anoxic brain injury due to above encephalopathy due to prolonged cardiac arrest (has some brainstem function) Myloclonic seizure (facial and body) due to above--resolved Acute STEMI, inferior wall myocardial infarction Liver shock likely due to cardiac arrest Acute kidney injury likely due to cardiac arrest Diabetes mellitus type 2 Hypertension Plan: EEG STAT: Preliminary report is abnormal. Has burst suppression and can be seen in post anoxia. Can be seen in medication induced or status epilepticus but in this situation it appears anoxia. Is on Keppra 1gm bid. Is on IV Propofol drip and if any further twitching or seizure then recommend going up on Propofol and if needed use Versed. I will get repeat CT head [address] Continue neuro checks We'll defer the rest of the medical management to the ICU and cardiology team Condition is critical. Because of prolonged down time, burst suppression, therefore prognosis appears poor. The plan is discussed with his and son who are at bedside and his nurse. Time with Patient: Greater than 30
--- NOTE | 2022-10-30 14:28 | EEG ---
ELECTROENCEPHALOGRAM REPORT CLINICAL HISTORY: This is a 62-year-old gentleman, who had a cardiac arrest outside the hospital, who has twitching of the face and body and continues to have altered mental status. The video EEG is obtained to evaluate for seizure and epileptiform activity. RELEVANT MEDICATIONS: Keppra, IV propofol, and Ativan. EEG TYPE: A routine 21-channel EEG is performed with video using the 10/20 electrode placement system. DESCRIPTION: The patient is intubated on a ventilator. The background consists of burst suppression. The burst lasts between 1 to 2 seconds, and it is a diffuse burst activity of [id number] voltage consisted of delta to theta activity. The suppression ranges between 6 to 25 seconds. For the most part, it was lasting between 6 to 12 seconds. It is a diffuse suppression. ACTIVATION PROCEDURE: Photic stimulation and hyperventilation are not performed. CLINICAL INTERPRETATION: This is an abnormal routine EEG. The burst suppression is likely due to post anoxia. The burst suppression can also be seen due to medication effect (sedation) versus status epilepticus. Clinical correlation is recommended. MMMUNDO / TOMN: [id number] / MTDD
[2022-10-30] MEDS: HEPARIN SOD,PORK IN 0.45% NACL 25,000 UNIT in 0.45% NACL 1 250ML.BAG IV SCH (14:54)
[2022-10-30 15:27] LABS: Glucose,Whole Blood 151 mg/dL (70-110)
[2022-10-30 16:29] LABS: Glucose,Whole Blood 121 mg/dL (70-110)
--- NOTE | 2022-10-30 17:49 | CT ---
EXAMINATION TYPE: CT brain wo con DATE OF EXAM: 10/30/2022 COMPARISON: 10/29/2022 HISTORY: AMS CT DLP: 1129.4 mGycm Automated exposure control for dose reduction was used. FINDINGS: Ventricles, basal cisterns and sulci over the convexities within normal limits and there is no mass e ffect or shift of midline structures. There is no acute intra or extra-axial hemorrhage. No abnormal density is seen throughout the brain parenchyma. The intraorbital contents appear normal and symmetric. There are air-fluid levels in the maxillary sinuses and sphenoid sinus consistent with acute sinusiti s IMPRESSION: 1. NO ACUTE BLEED OR MASS EFFECT. 2. ACUTE SPHENOID AND MAXILLARY SINUSITIS.
[2022-10-30] MEDS: MIDAZOLAM HCL 50 MG in SODIUM CHLORIDE 0.9% 40 ML IV SCH (20:08)
[2022-10-30 20:41] LABS: Glucose,Whole Blood 133 mg/dL (70-110)
[2022-10-30] MEDS ORDERED: METOPROLOL TARTRATE 50 MG TAB PO SCH (21:00)
[2022-10-30 23:35] LABS: Glucose,Whole Blood 116 mg/dL (70-110)
[2022-10-31 00:39] LABS: Basophils % (A) 0 %; Eosinophils % (A) 0 %; HCT 36.1 % (39.0-53.0); HGB 12.3 gm/dL (13.0-17.5); Lymphocytes # (A) 0.9 k/uL (1.0-4.8); Lymphocytes % (A) 8 %; MCH 30.4 pg (25.0-35.0); MCHC 34.1 g/dL (31.0-37.0); Mean Platelet Volume 7.5; Monocytes # (A) 0.5 k/uL (0-1.0); Monocytes % (A) 4 %; Neutrophils # (A) 10.7 k/uL (1.3-7.7); Neutrophils % (A) 87 %; Platelet Count 324 k/uL (150-450); RBC 4.05 m/uL (4.30-5.90); RDW 12.9 % (11.5-15.5); WBC 12.3 k/uL (3.8-10.6)
[2022-10-31] MEDS: INSULIN ASPART (NovoLOG) 100 UNIT/ML VIAL SQ SCH ×6 (01:19→21:36)
[2022-10-31 04:11] LABS: Glucose,Whole Blood 130 mg/dL (70-110)
[2022-10-31 05:51] LABS: Basophils % (A) 0 %; Eosinophils # (A) 0.1 k/uL (0-0.7); Eosinophils % (A) 0 %; HCT 41.1 % (39.0-53.0); HGB 13.9 gm/dL (13.0-17.5); Lymphocytes # (A) 0.8 k/uL (1.0-4.8); Lymphocytes % (A) 5 %; MCH 30.6 pg (25.0-35.0); MCHC 33.8 g/dL (31.0-37.0); MCV 90.7 fL (80.0-100.0); Mean Platelet Volume 8.1; Monocytes # (A) 0.9 k/uL (0-1.0); Monocytes % (A) 6 %; Neutrophils # (A) 15.2 k/uL (1.3-7.7); Neutrophils % (A) 88 %; Platelet Count 331 k/uL (150-450); RBC 4.53 m/uL (4.30-5.90); WBC 17.3 k/uL (3.8-10.6)
[2022-10-31 05:54] LABS: Calcium 8.2 mg/dL (8.4-10.2); Magnesium 2.2 mg/dL (1.6-2.3); Potassium 4.9 mmol/L (3.5-5.1)
[2022-10-31] MEDS: INSULIN DETEMIR (LEVEMIR) 100 UNIT/ML SYR SQ SCH ×2 (06:13→21:37)
[2022-10-31 06:27] LABS: ABG Base Excess -3.4 mmol/L; ABG HCO3 21 mmol/L (21-25); ABG Oxygen Saturation 98.2 % (94-97); ABG PCO2 32 mmHg (35-45); ABG PH 7.42 (7.35-7.45); ABG PO2 133 mmHg (83-108); ABG TCO2 22 mmol/L (19-24); Allen Test Performed? Yes
--- NOTE | 2022-10-31 06:53 | XR ---
EXAMINATION TYPE: XR chest 1V portable DATE OF EXAM: 10/31/2022 CLINICAL HISTORY: Difficulty breathing progress study. TECHNIQUE: Single AP portable upright view of the chest is obtained. COMPARISON: Chest x-ray from one day earlier and older studies. FINDINGS: Stable endotracheal and orogastric tubes. Mild increased central markings redemonstrated. No new peripheral focal airspace opacity, pleural eff usion, or pneumothorax seen bilaterally. Cardiac silhouette size is stable and within normal limits. Osseous structures are intact. IMPRESSION: Stable mild central vascular congestion. No new acute peripheral infiltrate. No significa nt change from one day earlier.
--- NOTE | 2022-10-31 08:08 | P.PN ---
Subjective Progress Note Date: 10/31/22 62-year-old male patient who presented to the ED with a cardiac arrest. 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 He was witnessed arrest by coworker. CPR was immediately started. The patient was hooked to an AICD and the patient was given 2 shocks. EMS called to the scene, and upon their arrival, the patient was then PA and the patient was given a total of 4 was of epinephrine, 1 dose of amiodarone. He coded for a total of 30 minutes with a short period of time when there was a return returnto his circulation. He also went into ventricular tachycardia/fibrillation and required defibrillation. Upon arrival to the emergency, the patient was coded for another 5 minutes and there was return of spontaneous circulation. I believe the total down time was around 35 minutes. The patient was apparently pulseless of the time of arrival to the emergency department. Subsequently, he regained blood pressure and his most recent blood pressure 190/100. The patient is currently intubated on a mechanical ventilator. EKG showed a inferior wall ST segment elevation myocardial infarction. Cardiology was informed. Cardiac catheterization was declined based on his prolonged downtime. At this point in time, the patient was seen in the emergency. He is on a mechanical ventilator, assist control 14, tidal volume of 450, FiO2 100% and a PEEP of 5. His chest x-ray showing pulmonary edema ET tube is in a good location. Echocardiogram was ordered and it will be done within next few m inutes. Arango catheter is in place and the patient has good urine output. The patient is on no sedation. He is somewhat asynchronous a mechanical ventilator, trying to breathe above the vent setting and becoming asynchronous. I recommended to start the patient on propofol. He was given rectal aspirin. He was started on IV heparin. The blood pressure was noted to be elevated. Recommended metoprolol 50 mg twice a day, hydralazine as needed and Lasix. Neurologically impaired. The patient is unresponsive. Pupils are 3 mm in size, sluggishly reactive to light. No other withdrawing to any painful stimulation. His initial troponin set was negative. The B cigars at 6.3 with a hemoglobin 12.7 and a platelet count of 360. Normal cognition profile. Bicarbs at 17 with a BUN of 27 and a creatinine of 1.47. Lactic acid level was at 8.5. Glucose of 471. He is diabetic. 10/30/2022, the patient's is being seen in the intensive care unit, intubated on a mechanical ventilator. Currently on propofol which is running at 25 mcg/kg/m to maintain synchrony with a mechanical ventilator. Neurologically, he has upward gaze, he does have sensation to pain as the patient moves his arms and legs to deep painful stimulation. An accurate motor and sensory evaluation cannot be done. The patient does not follow any commands. No seizure activity has been noted. The patient was seen by neurology yesterday. CAT scan of the brain was done that showed no acute abnormalities. At the same time, the patient was seen by neurology and started on IV Keppra empirically. Anoxic encephalopathy is highly suspected because of his prolonged downtime following the cardiac arrest. EEG is to follow today. In terms of respiratory support, the patient remains on a mechanical ventilator. Is on a rate of 20, tidal volume of 450, FiO2 of 50% with a PEEP of 5, and a morning blood gases showed a pH of 7.45 with a pCO2 of 36 and pO2 of 3:30 and this was an FiO2 of 100%, as such, the FiO2 was dropped onto 50%. The chest x-ray from today shows some improvement in the pulmonary edema. There is still some underlying cephalization. No airspace disease or consolidations. EKG was in a good loca tion. The patient is afebrile for now. No significant respiratory secretions. The patient is quite successful mechanical ventilator. Hemodynamically, the patient has a stable blood pressure. No pressors were utilized. The patient is currently on IV fluids at 70 mL an hour normal saline. Troponins peaked at 2.6. Echocardiogram was done yesterday and the patient was found to have mildly incr eased left ventricular wall thickness, ejection fraction on the left was 55%, normal RV, there was some mild inferior wall hypokinesis which goes along with his acute ST segment elevation inferior wall myocardial infarction. The patient remains on IV heparin. PTT is therapeutic. Lactic acid level dropped from 8.5 down to 2.6. Urine drug screen was done and the patient was positive for tricyclics and benzodiazepines. On today's evaluation of 10/31/2022, the patient remains in anoxic encephal opathy, comatose, unresponsive. Positive cough. Positive blink. Positive corneal and gag reflex. Unresponsive to any verbal or painful stimulation. At times, we noticed the he withdraws to deep painful stimulation. No seizure activity has been noted. EEG was done yesterday and it was consistent with diffuse encephalopathy and signs of anoxic encephalopathy. CAT scan of the chest was negative. Neurologic is on the case. The patient remains on Keppra. Meanwhile, the patient remains intubated on a mechanical ventilator. Is on assist-control mode at the rate of 20, tidal volume of 450 with an FiO2 of 40% with PEEP of 5. Blood gas from today shows a pH of 7.42 with a pCO2 of 32 and a pO2 of 133. The chest x-ray from today is showing adequate expansion of both lungs. ET tube is in a good location. There may be some left lower lobe atelectasis. Orogastric tube is also in place. No airspace disease or consolidations. The patient remains on low-dose propofol which is running at 20 mcg/kg/m and this was essentially to maintain synchrony. He was given a sedation holiday yesterday without any signs of neurological recovery. The same will be done today. He is hemodynamically stable in normal sinus rhythm. Is on no pressors. He is maintaining his pressure for now. No cardiac arrhythmias of been noted. He remains on IV heparin. He is on aspirin. He was started on e nteral feeding for nutritional support. Echo of the heart was noted yesterday and the patient has no LV dysfunction and the patient had some mild inferior wall hypokinesis. In terms of the rest of the labs done today, the patient has a WBC count of 17.3 with hemoglobin 13.9 and a platelet count of 331. Bicarb is 25, sodium is at 141, potassium level is at 4.9, glucose is 133. The patient is currently receiving enteral feeding in the form of Glucerna at the rate of 75 mL an hour. His blood sugars have been under adequate control and the patient is currently on a sliding scale insulin coverage. I also added Levemir 11 units a day for blood sugar control. Objective - Vital Signs Vital signs: Vital Signs Temp 97.5 F L 10/31/22 00:00 Pulse 97 10/31/22 07:00 Resp 20 10/31/22 07:00 BP 123/76 10/31/22 07:00 Pulse Ox 99 10/31/22 07:00 FiO2 40 10/31/22 04:00 Intake & Output 10/30/22 10/31/22 10/31/22 18:59 06:59 18:59 Intake Total 3853.202 5127.032 85 Output Total 575 735 80 Balance 883.104 837.032 5 Weight 70.8 kg Intake: IV 940 760 50 Sodium Chloride 0.9% 1, 840 760 50 000 ml @ 70 mls/hr IV . [id number] MARCELINA Rx#:[id number] levETIRAcetam IV 1,000 mg 100 In Saline 1 100ml.bag @ 400 mls/hr IVPB ONCE [facility] Rx#:[id number] Intake, IV Titration 318.104 352.032 Amount Heparin Sod,Pork in 0.45% 233.519 152.032 NaCl 25,000 unit In 0.45 % NaCl 1 250ml.bag @ 12 UNITS/KG/HR 9.798 mls/hr IV .Q24H MARCELINA Rx#: [id number] levETIRAcetam IV 1,000 mg 100 In Saline 1 100ml.bag @ 400 mls/hr IVPB Q12HR MARCELINA Rx#:[id number] propofoL 1,000 mg In 84.585 100 Empty Bag 1 bag @ 15 MCG/ KG/MIN 7.348 mls/hr IV . [id number] MARCELINA Rx#:[id number] Tube Feeding 140 370 35 Other 60 90 Output: Urine 575 735 80 Other: Voiding Method Indwelling Catheter Indwelling Catheter - Exam Unresponsive, breathing above the mechanical ventilator, intubated, orogastric and orotracheal tube are both in place. Head exam was generally normal. There was no scleral icterus or corneal arcus. Mucous membranes were moist. Neck was supple and without jugular venous distension, thyromegaly, or carotid bruits. Carotids were easily palpable bilaterally. There was no adenopathy. Lungs were clear to auscultation and percussion, and with normal diaphragmatic excursion. No wheezes or rales were noted. There is some bruising over the the anterior chest and the level of sternum related to CPR and there is some underlying erythema. Cardiac exam revealed the PMI to be normally situated and sized. The rhythm was regular and no extrasystoles were noted during several minutes of auscultation. The first and second heart sounds were normal and physiologic splitting of the second heart sound was noted. There were no murmurs, rubs, clicks, or gallops. Abdominal exam revealed normal bowel sounds. The abdomen was soft, non-tender, and without masses, organomegaly, or appreciable enlargement of the abdominal aorta. Examination of the extremities revealed easily palpable radial, femoral and pedal pulses. There was no cyanosis, clubbing or edema. Neurologically the patient is unresponsive to any verbal or painful. Pupils are round 3-4 mm in size, sluggishly reactive to light. No nystagmus. Sensory and motor functions cannot be assessed. Equal and symmetrical reflexes. No [place] i. No clonus. Positive cough. Positive gag. Positive corneal reflex. Positive blinking. No major change in his neurologic examination on today's evaluation. No witnessed seizures. He has an upper gaze. Is withdrawing to be painful stimulation in the upper extremities. He remains on propofol for now. - Labs CBC & Chem 7: 10/31/22 05:25 10/31/22 05:19 Labs: Abnormal Lab Results - Last 24 Hours (Table) 10/30/22 10/30/22 10/30/22 Range/Units 03:37 08:31 11:43 WBC (3.8-10.6) k/uL RBC (4.30-5.90) m/uL Hgb (13.0-17.5) gm/dL Hct (39.0-53.0) % Neutrophils # (1.3-7.7) k/uL Lymphocytes # (1.0-4.8) k/uL APTT (22.0-30.0) sec ABG pCO2 (35-45) mmHg ABG pO2 (83-108) mmHg ABG O2 Saturation (94-97) % Chloride (98-107) mmol/L BUN (9-20) mg/dL Glucose (74-99) mg/dL POC Glucose (mg/dL) 147 H 146 H (70-110) mg/dL Hemoglobin A1c 10.2 H (0.0-6.0) % Calcium (8.4-10.2) mg/dL 10/30/22 10/30/22 10/30/22 Range/Units 15:24 16:28 20:40 WBC (3.8-10.6) k/uL RBC (4.30-5.90) m/uL Hgb (13.0-17.5) gm/dL Hct (39.0-53.0) % Neutrophils # (1.3-7.7) k/uL Lymphocytes # (1.0-4.8) k/uL APTT (22.0-30.0) sec ABG pCO2 (35-45) mmHg ABG pO2 (83-108) mmHg ABG O2 Saturation (94-97) % Chloride (98-107) mmol/L BUN (9-20) mg/dL Glucose (74-99) mg/dL POC Glucose (mg/dL) 151 H 121 H 133 H (70-110) mg/dL Hemoglobin A1c (0.0-6.0) % Calcium (8.4-10.2) mg/dL 10/30/22 10/31/22 10/31/22 Range/Units 23:33 00:22 04:08 WBC 12.3 H (3.8-10.6) k/uL RBC 4.05 L (4.30-5.90) m/uL Hgb 12.3 L (13.0-17.5) gm/dL Hct 36.1 L (39.0-53.0) % Neutrophils # 10.7 H (1.3-7.7) k/uL Lymphocytes # 0.9 L (1.0-4.8) k/uL APTT (22.0-30.0) sec ABG pCO2 (35-45) mmHg ABG pO2 (83-108) mmHg ABG O2 Saturation (94-97) % Chloride (98-107) mmol/L BUN (9-20) mg/dL Glucose (74-99) mg/dL POC Glucose (mg/dL) 116 H 130 H (70-110) mg/dL Hemoglobin A1c (0.0-6.0) % Calcium (8.4-10.2) mg/dL 10/31/22 10/31/22 10/31/22 Range/Units 05:19 05:25 05:25 WBC 17.3 H (3.8-10.6) k/uL RBC (4.30-5.90) m/uL Hgb (13.0-17.5) gm/dL Hct (39.0-53.0) % Neutrophils # 15.2 H (1.3-7.7) k/uL Lymphocytes # 0.8 L (1.0-4.8) k/uL APTT 85.2 H (22.0-30.0) sec ABG pCO2 (35-45) mmHg ABG pO2 (83-108) mmHg ABG O2 Saturation (94-97) % Chloride 108 H (98-107) mmol/L BUN 22 H (9-20) mg/dL Glucose 133 H (74-99) mg/dL POC Glucose (mg/dL) (70-110) mg/dL Hemoglobin A1c (0.0-6.0) % Calcium 8.2 L (8.4-10.2) mg/dL 10/31/22 Range/Units 05:53 WBC (3.8-10.6) k/uL RBC (4.30-5.90) m/uL Hgb (13.0-17.5) gm/dL Hct (39.0-53.0) % Neutrophils # (1.3-7.7) k/uL Lymphocytes # (1.0-4.8) k/uL APTT (22.0-30.0) sec ABG pCO2 32 L (35-45) mmHg ABG pO2 133 H (83-108) mmHg ABG O2 Saturation 98.2 H (94-97) % Chloride (98-107) mmol/L BUN (9-20) mg/dL Glucose (74-99) mg/dL POC Glucose (mg/dL) (70-110) mg/dL Hemoglobin A1c (0.0-6.0) % Calcium (8.4-10.2) mg/dL Microbiology - Last 24 Hours (Table) 10/29/22 17:56 Gram Stain - Preliminary Sputum Sputum Culture - Preliminary Assessment and Plan Plan: Anoxic encephalopathy/comatose state, EGD revealing diffuse encephalopathy and some burst suppression related to anoxic encephalopathy. The patient is unresponsive. He had a prolonged downtime. He does have some limited brainstem reflexes including corneal, pupillary response. cough and a gag. No higher cortical functions. No seizure activity. Cardiac arrest, witnessed, CPR and resuscitation was initiated on the scene and the patient was brought into the emergency department where CPR resuscitation was continued and there was return respiratory circulation probably within 35 minutes. The patient received AID shocks initially, subsequent epinephrine doses, amiodarone, defibrillation and ultimately there was return of spontaneous circulation. The patient is currently hemodynamically stable on no pressors. Suspect anoxic encephalopathy due to prolonged downtime. Echocardiogram showed a preserved LV function, some inferior wall hypokinesis. Acute STEMI, inferior wall myocardial infarction, troponin peaked at 2.6 and the patient remains on IV heparin and aspirin Acute hypoxic respiratory failure secondary to above, remains intubated on mechanical ventilator Anoxic encephalopathy/Unresponsiveness/due to cardiac arrest and the patient is currently on low-dose propofol to maintain secondary with a mechanical ventilator Acute pulmonary edema with bilateral pulmonary infiltrates and cephalization based on the chest x-ray, improved Acute kidney injurecovered Acute lactic acidosis secondary to above Diabetes mellitus type 2 with hyperglycemia secondary to above., Blood sugars under adequate control History of hypertension Plan We'll continue monitoring the neurologic function in progress Stop sedation Assess the patient's neuro status Continue [place] Consult with neurology again regarding neurologic outcomes I see that the patient's prognosis will be extremely poor based on the presence of severe anoxic encephalopathy Cardiology is already evaluated the patient and declined cardiac catheterization based on his prolonged downtime We'll treat this patient medically Continue vent support for now No changes in the mechanical ventilator EEG Was noted continue Keppra Stop IV heparin and put the patient on Lovenox 40 mg for DVT prophylaxis Continue aspirin 325 mg by mouth daily Metoprolol 50 mg by mouth twice a day Echocardiogram was noted CAT scan of the brain was noted and the findings of essentially negative Monitor temperature and avoid any hyperthermia Levemir insulin for a positive blood sugar control Start the patient on Glucerna monitor feeding for nutritional support Lovenox 40 mg subcu portably prophylaxis No need for pressors We'll continue to follow. This is highly critical and prognosis poor based above-mentioned comorbidities. Critical care evaluation , > 30min Time with Patient: Greater than 30
--- NOTE | 2022-10-31 08:20 | P.PN ---
Subjective Progress Note Date: 10/30/22 62-year-old male patient presented to ED with cardiac arrest which was witnessed by a coworker patient was working at the near by [employer]; CPR was started resulting in return of spontaneous circulation; in the ED patient went into VT/fibrillation and required defibrillation and was coded for another 5 minutes after which she had return of spontaneous circulation; total downtime is estimated to be around 35 minutes The patient was apparently pulseless of the time of arrival to the emergency department. Subsequently, he regained blood pressure and his most recent blood pressure 190/100. The patient is currently intubated on a mechanical ventilator. EKG showed a inferior wall ST segment elevation myocardial infarction. Cardiology was informed. Cardiac catheterization was declined based on his prolonged downtime. In ICU patient remains on mechanical ventilator with post intubation chest x-ray reveals pulmonary edema with ET tube in good position Echocardiogram has been ordered and pending His initial troponin set was negative. Blood work reveals a WBC of 6.3 with a hemoglobin 12.7 and a platelet count of 360. Normal chemical profile. Bicarbs at 17 with a BUN of 27 and a creatinine of 1.47. Lactic acid level was at 8.5. Glucose of 471. Objective - Vital Signs Vital signs: Vital Signs Temp 99.0 F 10/30/22 06:00 Pulse 92 10/30/22 07:30 Resp 20 10/30/22 07:30 BP 128/73 10/30/22 07:30 Pulse Ox 99 10/30/22 07:30 FiO2 50 10/30/22 07:38 Intake & Output 10/29/22 10/30/22 10/30/22 18:59 06:59 18:59 Intake Total 851.564 6356.429 141.685 Output Total 300 980 45 Balance -167.061 27.429 96.685 Weight 70.8 kg 70.8 kg Intake: IV 130 860 70 Sodium Chloride 0.9% 1, 130 660 70 000 ml @ 130 mls/hr IV . [id number] [facility] Rx#:[id number] levETIRAcetam IV 1,000 mg 200 In Saline 1 100ml.bag @ 400 mls/hr IVPB ONCE STA Rx#:[id number] Intake, IV Titration 2.939 147.429 71.685 Amount Insulin Regular 100 unit 26.772 In Sodium Chloride 0.9% 100 ml @ Titrate IV .Q0M [facility] Rx#:[id number] propofoL 1,000 mg In 2.939 120.657 71.685 Empty Bag 1 bag @ 15 MCG/ KG/MIN 7.348 mls/hr IV . [id number] [facility]INA Rx#:[id number] Tube Feeding 0 Other 0 Output: Gastric Drainage 100 Urine 300 880 45 Other: Voiding Method Indwelling Catheter - Exam GENERAL: The patient is intubated and mechanically ventilated; patient has an oral gastric and oral tracheal tube in place HEENT: Pupils are round and equally reacting to light. EOMI. No scleral icterus. No conjunctival pallor. Normocephalic, atraumatic. No pharyngeal erythema. No thyromegaly. CARDIOVASCULAR: S1 and S2 present. No murmurs, rubs, or gallops. PULMONARY: Chest is clear to auscultation, no wheezing or crackles. ABDOMEN: Soft, nontender, nondistended, normoactive bowel sounds. No palpable organomegaly. MUSCULOSKELETAL: No joint swelling or deformity. EXTREMITIES: No cyanosis, clubbing, or pedal edema. NEUROLOGICAL: Unable to evaluate; patient remains unresponsive SKIN: No rashes. - Labs CBC & Chem 7: 10/31/22 05:25 10/31/22 05:19 Labs: Abnormal Lab Results - Last 24 Hours (Table) 10/29/22 10/29/22 10/29/22 Range/Units 14:30 14:30 14:30 WBC (3.8-10.6) k/uL RBC 4.18 L (4.30-5.90) m/uL Hgb 12.7 L (13.0-17.5) gm/dL Neutrophils # (1.3-7.7) k/uL Lymphocytes # (1.0-4.8) k/uL Monocytes # (0-1.0) k/uL APTT (22.0-30.0) sec ABG pH (7.35-7.45) ABG pO2 (83-108) mmHg ABG Total CO2 (19-24) mmol/L ABG O2 Saturation (94-97) % Sodium 131 L (137-145) mmol/L Potassium (3.5-5.1) mmol/L Chloride (98-107) mmol/L Carbon Dioxide 17 L (22-30) mmol/L BUN 27 H (9-20) mg/dL Creatinine 1.47 H (0.66-1.25) mg/dL Glucose 471 H (74-99) mg/dL POC Glucose (mg/dL) (70-110) mg/dL Hemoglobin A1c (0.0-6.0) % Plasma Lactic Acid Aydin 8.5 H* (0.7-2.0) mmol/L Calcium 7.2 L (8.4-10.2) mg/dL Magnesium 2.6 H (1.6-2.3) mg/dL AST 238 H (17-59) U/L ALT 163 H (4-49) U/L Troponin I (0.000-0.034) ng/mL Total Protein 5.0 L (6.3-8.2) g/dL Albumin 2.8 L (3.5-5.0) g/dL Urine Glucose (UA) (Negative) Urine Ketones (Negative) Urine Blood (Negative) Urine Bacteria (None) /hpf Urine Mucus (None) /hpf U Tricyclic Antidepress (NotDetected) U Benzodiazepines Scrn (NotDetected) 10/29/22 10/29/22 10/29/22 Range/Units 17:16 17:53 18:19 WBC (3.8-10.6) k/uL RBC (4.30-5.90) m/uL Hgb (13.0-17.5) gm/dL Neutrophils # (1.3-7.7) k/uL Lymphocytes # (1.0-4.8) k/uL Monocytes # (0-1.0) k/uL APTT (22.0-30.0) sec ABG pH 7.32 L (7.35-7.45) ABG pO2 (83-108) mmHg ABG Total CO2 (19-24) mmol/L ABG O2 Saturation (94-97) % Sodium (137-145) mmol/L Potassium (3.5-5.1) mmol/L Chloride (98-107) mmol/L Carbon Dioxide (22-30) mmol/L BUN (9-20) mg/dL Creatinine (0.66-1.25) mg/dL Glucose (74-99) mg/dL POC Glucose (mg/dL) 403 H (70-110) mg/dL Hemoglobin A1c (0.0-6.0) % Plasma Lactic Acid Aydin 3.0 H* (0.7-2.0) mmol/L Calcium (8.4-10.2) mg/dL Magnesium (1.6-2.3) mg/dL AST (17-59) U/L ALT (4-49) U/L Troponin I (0.000-0.034) ng/mL Total Protein (6.3-8.2) g/dL Albumin (3.5-5.0) g/dL Urine Glucose (UA) (Negative) Urine Ketones (Negative) Urine Blood (Negative) Urine Bacteria (None) /hpf Urine Mucus (None) /hpf U Tricyclic Antidepress (NotDetected) U Benzodiazepines Scrn (NotDetected) 10/29/22 10/29/22 10/29/22 Range/Units 18:19 18:35 20:36 WBC (3.8-10.6) k/uL RBC (4.30-5.90) m/uL Hgb (13.0-17.5) gm/dL Neutrophils # (1.3-7.7) k/uL Lymphocytes # (1.0-4.8) k/uL Monocytes # (0-1.0) k/uL APTT (22.0-30.0) sec ABG pH (7.35-7.45) ABG pO2 (83-108) mmHg ABG Total CO2 (19-24) mmol/L ABG O2 Saturation (94-97) % Sodium (137-145) mmol/L Potassium (3.5-5.1) mmol/L Chloride (98-107) mmol/L Carbon Dioxide (22-30) mmol/L BUN (9-20) mg/dL Creatinine (0.66-1.25) mg/dL Glucose (74-99) mg/dL POC Glucose (mg/dL) 400 H (70-110) mg/dL Hemoglobin A1c (0.0-6.0) % Plasma Lactic Acid Aydin (0.7-2.0) mmol/L Calcium (8.4-10.2) mg/dL Magnesium (1.6-2.3) mg/dL AST (17-59) U/L ALT (4-49) U/L Troponin I 1.100 H* (0.000-0.034) ng/mL Total Protein (6.3-8.2) g/dL Albumin (3.5-5.0) g/dL Urine Glucose (UA) 4+ H (Negative) Urine Ketones Trace H (Negative) Urine Blood Trace H (Negative) Urine Bacteria Rare H (None) /hpf Urine Mucus Rare H (None) /hpf U Tricyclic Antidepress (NotDetected) U Benzodiazepines Scrn (NotDetected) 10/29/22 10/29/22 10/29/22 Range/Units 21:11 21:11 21:11 WBC (3.8-10.6) k/uL RBC (4.30-5.90) m/uL Hgb (13.0-17.5) gm/dL Neutrophils # (1.3-7.7) k/uL Lymphocytes # (1.0-4.8) k/uL Monocytes # (0-1.0) k/uL APTT 53.5 H (22.0-30.0) sec ABG pH (7.35-7.45) ABG pO2 (83-108) mmHg ABG Total CO2 (19-24) mmol/L ABG O2 Saturation (94-97) % Sodium (137-145) mmol/L Potassium (3.5-5.1) mmol/L Chloride (98-107) mmol/L Carbon Dioxide (22-30) mmol/L BUN (9-20) mg/dL Creatinine (0.66-1.25) mg/dL Glucose (74-99) mg/dL POC Glucose (mg/dL) (70-110) mg/dL Hemoglobin A1c 10.2 H (0.0-6.0) % Plasma Lactic Acid Aydin 2.1 H* (0.7-2.0) mmol/L Calcium (8.4-10.2) mg/dL Magnesium (1.6-2.3) mg/dL AST (17-59) U/L ALT (4-49) U/L Troponin I (0.000-0.034) ng/mL Total Protein (6.3-8.2) g/dL Albumin (3.5-5.0) g/dL Urine Glucose (UA) (Negative) Urine Ketones (Negative) Urine Blood (Negative) Urine Bacteria (None) /hpf Urine Mucus (None) /hpf U Tricyclic Antidepress (NotDetected) U Benzodiazepines Scrn (NotDetected) 10/29/22 10/29/22 10/30/22 Range/Units 21:56 23:01 00:01 WBC (3.8-10.6) k/uL RBC (4.30-5.90) m/uL Hgb (13.0-17.5) gm/dL Neutrophils # (1.3-7.7) k/uL Lymphocytes # (1.0-4.8) k/uL Monocytes # (0-1.0) k/uL APTT (22.0-30.0) sec ABG pH (7.35-7.45) ABG pO2 (83-108) mmHg ABG Total CO2 (19-24) mmol/L ABG O2 Saturation (94-97) % Sodium (137-145) mmol/L Potassium (3.5-5.1) mmol/L Chloride (98-107) mmol/L Carbon Dioxide (22-30) mmol/L BUN (9-20) mg/dL Creatinine (0.66-1.25) mg/dL Glucose (74-99) mg/dL POC Glucose (mg/dL) 370 H 303 H 235 H (70-110) mg/dL Hemoglobin A1c (0.0-6.0) % Plasma Lactic Acid Aydin (0.7-2.0) mmol/L Calcium (8.4-10.2) mg/dL Magnesium (1.6-2.3) mg/dL AST (17-59) U/L ALT (4-49) U/L Troponin I (0.000-0.034) ng/mL Total Protein (6.3-8.2) g/dL Albumin (3.5-5.0) g/dL Urine Glucose (UA) (Negative) Urine Ketones (Negative) Urine Blood (Negative) Urine Bacteria (None) /hpf Urine Mucus (None) /hpf U Tricyclic Antidepress (NotDetected) U Benzodiazepines Scrn (NotDetected) 10/30/22 10/30/22 10/30/22 Range/Units 00:59 01:05 01:05 WBC (3.8-10.6) k/uL RBC (4.30-5.90) m/uL Hgb (13.0-17.5) gm/dL Neutrophils # (1.3-7.7) k/uL Lymphocytes # (1.0-4.8) k/uL Monocytes # (0-1.0) k/uL APTT (22.0-30.0) sec ABG pH (7.35-7.45) ABG pO2 (83-108) mmHg ABG Total CO2 (19-24) mmol/L ABG O2 Saturation (94-97) % Sodium (137-145) mmol/L Potassium 5.5 H (3.5-5.1) mmol/L Chloride (98-107) mmol/L Carbon Dioxide (22-30) mmol/L BUN (9-20) mg/dL Creatinine (0.66-1.25) mg/dL Glucose (74-99) mg/dL POC Glucose (mg/dL) 157 H (70-110) mg/dL Hemoglobin A1c (0.0-6.0) % Plasma Lactic Acid Aydin 3.3 H* (0.7-2.0) mmol/L Calcium (8.4-10.2) mg/dL Magnesium (1.6-2.3) mg/dL AST (17-59) U/L ALT (4-49) U/L Troponin I (0.000-0.034) ng/mL Total Protein (6.3-8.2) g/dL Albumin (3.5-5.0) g/dL Urine Glucose (UA) (Negative) Urine Ketones (Negative) Urine Blood (Negative) Urine Bacteria (None) /hpf Urine Mucus (None) /hpf U Tricyclic Antidepress (NotDetected) U Benzodiazepines Scrn (NotDetected) 10/30/22 10/30/22 10/30/22 Range/Units 02:02 02:53 03:06 WBC (3.8-10.6) k/uL RBC (4.30-5.90) m/uL Hgb (13.0-17.5) gm/dL Neutrophils # (1.3-7.7) k/uL Lymphocytes # (1.0-4.8) k/uL Monocytes # (0-1.0) k/uL APTT (22.0-30.0) sec ABG pH (7.35-7.45) ABG pO2 330 H (83-108) mmHg ABG Total CO2 26 H (19-24) mmol/L ABG O2 Saturation 99.2 H (94-97) % Sodium (137-145) mmol/L Potassium (3.5-5.1) mmol/L Chloride (98-107) mmol/L Carbon Dioxide (22-30) mmol/L BUN (9-20) mg/dL Creatinine (0.66-1.25) mg/dL Glucose (74-99) mg/dL POC Glucose (mg/dL) 192 H 117 H (70-110) mg/dL Hemoglobin A1c (0.0-6.0) % Plasma Lactic Acid Aydin (0.7-2.0) mmol/L Calcium (8.4-10.2) mg/dL Magnesium (1.6-2.3) mg/dL AST (17-59) U/L ALT (4-49) U/L Troponin I (0.000-0.034) ng/mL Total Protein (6.3-8.2) g/dL Albumin (3.5-5.0) g/dL Urine Glucose (UA) (Negative) Urine Ketones (Negative) Urine Blood (Negative) Urine Bacteria (None) /hpf Urine Mucus (None) /hpf U Tricyclic Antidepress (NotDetected) U Benzodiazepines Scrn (NotDetected) 10/30/22 10/30/22 10/30/22 Range/Units 03:37 03:37 03:37 WBC 16.5 H (3.8-10.6) k/uL RBC (4.30-5.90) m/uL Hgb (13.0-17.5) gm/dL Neutrophils # 14.4 H (1.3-7.7) k/uL Lymphocytes # 0.6 L (1.0-4.8) k/uL Monocytes # 1.3 H (0-1.0) k/uL APTT (22.0-30.0) sec ABG pH (7.35-7.45) ABG pO2 (83-108) mmHg ABG Total CO2 (19-24) mmol/L ABG O2 Saturation (94-97) % Sodium (137-145) mmol/L Potassium (3.5-5.1) mmol/L Chloride 108 H (98-107) mmol/L Carbon Dioxide (22-30) mmol/L BUN 31 H (9-20) mg/dL Creatinine (0.66-1.25) mg/dL Glucose 128 H (74-99) mg/dL POC Glucose (mg/dL) (70-110) mg/dL Hemoglobin A1c 10.2 H (0.0-6.0) % Plasma Lactic Acid Aydin (0.7-2.0) mmol/L Calcium 8.3 L (8.4-10.2) mg/dL Magnesium (1.6-2.3) mg/dL AST 227 H (17-59) U/L ALT 241 H (4-49) U/L Troponin I (0.000-0.034) ng/mL Total Protein 5.2 L (6.3-8.2) g/dL Albumin 2.9 L (3.5-5.0) g/dL Urine Glucose (UA) (Negative) Urine Ketones (Negative) Urine Blood (Negative) Urine Bacteria (None) /hpf Urine Mucus (None) /hpf U Tricyclic Antidepress (NotDetected) U Benzodiazepines Scrn (NotDetected) 10/30/22 10/30/22 10/30/22 Range/Units 03:37 04:06 05:46 WBC (3.8-10.6) k/uL RBC (4.30-5.90) m/uL Hgb (13.0-17.5) gm/dL Neutrophils # (1.3-7.7) k/uL Lymphocytes # (1.0-4.8) k/uL Monocytes # (0-1.0) k/uL APTT 69.2 H (22.0-30.0) sec ABG pH (7.35-7.45) ABG pO2 (83-108) mmHg ABG Total CO2 (19-24) mmol/L ABG O2 Saturation (94-97) % Sodium (137-145) mmol/L Potassium (3.5-5.1) mmol/L Chloride (98-107) mmol/L Carbon Dioxide (22-30) mmol/L BUN (9-20) mg/dL Creatinine (0.66-1.25) mg/dL Glucose (74-99) mg/dL POC Glucose (mg/dL) 152 H (70-110) mg/dL Hemoglobin A1c (0.0-6.0) % Plasma Lactic Acid Aydin (0.7-2.0) mmol/L Calcium (8.4-10.2) mg/dL Magnesium (1.6-2.3) mg/dL AST (17-59) U/L ALT (4-49) U/L Troponin I 2.650 H* (0.000-0.034) ng/mL Total Protein (6.3-8.2) g/dL Albumin (3.5-5.0) g/dL Urine Glucose (UA) (Negative) Urine Ketones (Negative) Urine Blood (Negative) Urine Bacteria (None) /hpf Urine Mucus (None) /hpf U Tricyclic Antidepress (NotDetected) U Benzodiazepines Scrn (NotDetected) 10/30/22 10/30/22 10/30/22 Range/Units 05:46 05:56 06:55 WBC (3.8-10.6) k/uL RBC (4.30-5.90) m/uL Hgb (13.0-17.5) gm/dL Neutrophils # (1.3-7.7) k/uL Lymphocytes # (1.0-4.8) k/uL Monocytes # (0-1.0) k/uL APTT (22.0-30.0) sec ABG pH (7.35-7.45) ABG pO2 (83-108) mmHg ABG Total CO2 (19-24) mmol/L ABG O2 Saturation (94-97) % Sodium (137-145) mmol/L Potassium (3.5-5.1) mmol/L Chloride (98-107) mmol/L Carbon Dioxide (22-30) mmol/L BUN (9-20) mg/dL Creatinine (0.66-1.25) mg/dL Glucose (74-99) mg/dL POC Glucose (mg/dL) 165 H (70-110) mg/dL Hemoglobin A1c (0.0-6.0) % Plasma Lactic Acid Aydin 2.7 H* (0.7-2.0) mmol/L Calcium (8.4-10.2) mg/dL Magnesium (1.6-2.3) mg/dL AST (17-59) U/L ALT (4-49) U/L Troponin I (0.000-0.034) ng/mL Total Protein (6.3-8.2) g/dL Albumin (3.5-5.0) g/dL Urine Glucose (UA) (Negative) Urine Ketones (Negative) Urine Blood (Negative) Urine Bacteria (None) /hpf Urine Mucus (None) /hpf U Tricyclic Antidepress Detected H (NotDetected) U Benzodiazepines Scrn Detected H (NotDetected) 10/30/22 Range/Units 08:31 WBC (3.8-10.6) k/uL RBC (4.30-5.90) m/uL Hgb (13.0-17.5) gm/dL Neutrophils # (1.3-7.7) k/uL Lymphocytes # (1.0-4.8) k/uL Monocytes # (0-1.0) k/uL APTT (22.0-30.0) sec ABG pH (7.35-7.45) ABG pO2 (83-108) mmHg ABG Total CO2 (19-24) mmol/L ABG O2 Saturation (94-97) % Sodium (137-145) mmol/L Potassium (3.5-5.1) mmol/L Chloride (98-107) mmol/L Carbon Dioxide (22-30) mmol/L BUN (9-20) mg/dL Creatinine (0.66-1.25) mg/dL Glucose (74-99) mg/dL POC Glucose (mg/dL) 147 H (70-110) mg/dL Hemoglobin A1c (0.0-6.0) % Plasma Lactic Acid Aydin (0.7-2.0) mmol/L Calcium (8.4-10.2) mg/dL Magnesium (1.6-2.3) mg/dL AST (17-59) U/L ALT (4-49) U/L Troponin I (0.000-0.034) ng/mL Total Protein (6.3-8.2) g/dL Albumin (3.5-5.0) g/dL Urine Glucose (UA) (Negative) Urine Ketones (Negative) Urine Blood (Negative) Urine Bacteria (None) /hpf Urine Mucus (None) /hpf U Tricyclic Antidepress (NotDetected) U Benzodiazepines Scrn (NotDetected) Microbiology - Last 24 Hours (Table) 10/29/22 17:56 Gram Stain - Preliminary Sputum Sputum Culture - Preliminary Assessment and Plan Assessment: 1. Acute STEMI, inferior wall myocardial infarction; Cardiac arrest, witnessed, CPR and resuscitation was initiated on the scene and the patient was brought into the emergency department where CPR resuscitation was continued and there was return respiratory circulation probably within 35 minutes. -- Cardiology is already evaluated the patient and declined cardiac catheterization based on his prolonged downtime - Patient is to be treated medically; remains on IV heparin per protocol and aspirin; cardiology recommending to start patient on metoprolol 50 mg twice a day - Echocardiogram is ordered and pending 2. Acute toxic respiratory failure; vent dependent; secondary to above; plan is to continue with mechanical ventilator; plan to gradually weaned down FiO2; blood gases will be monitored 3. Unresponsiveness/comatose state, likely secondary to underlying anoxic encephalopathy; computed tomography scan of the pain is ordered 4. Acute pulmonary edema with bilateral pulmonary infiltrates and cephalization based on the chest x-ray; patient received Lasix 40 mg IV 1 - Echocardiogram is ordered and pending; further recommendations once echocardiogram results are available 5. Acute kidney injury; we will continue to monitor strict ARIADNE's, daily weights, renal function and electrolytes; avoid nephrotoxins; hold off on IV fluid hydration given pulmonary edema 6. Acute lactic acidosis secondary to above; likely related to dehydration 7. Hyperglycemia/Diabetes mellitus type 2 with hyperglycemia secondary to above; for now patient is in placed an IV insulin infusion; we will monitor CBC, CMP and progesterone 8. Hypertension; patient has been placed on metoprolol 50 mg twice a day; continue with hydralazine 10 mg IV every 4-6 hours when necessary for systolic blood pressure greater than 160 DVT prophylaxis; SCDs/IV heparin CODE STATUS; full code
[2022-10-31] MEDS: levETIRAcetam IV 1,000 MG in SALINE 1 100ML.BAG IVPB SCH ×2 (08:38→21:37)
[2022-10-31] MEDS: CHLORHEXIDINE GLUCONATE 15 ML CUP MUCOUS MEM SCH ×2 (08:38→21:37)
[2022-10-31] MEDS: ENOXAPARIN 40 MG/0.4 ML SYRINGE SQ SCH (08:38)
[2022-10-31] MEDS: ASPIRIN 325 MG TAB PO SCH (08:38)
[2022-10-31] MEDS: PANTOPRAZOLE 40 MG/10 ML VIAL IV SCH (08:38)
[2022-10-31] MEDS: METOPROLOL TARTRATE 50 MG TAB PO SCH ×2 (08:38→21:37)
[2022-10-31 08:43] LABS: Glucose,Whole Blood 132 mg/dL (70-110)
[2022-10-31] MEDS: SODIUM CHLORIDE 0.9% 1,000 ML IV SCH ×2 (08:51→21:38)
[2022-10-31] MEDS ORDERED: METOPROLOL TARTRATE 50 MG TAB PO STA (10:37)
[2022-10-31] MEDS: CLOPIDOGREL 75 MG TAB PO SCH (10:46)
--- NOTE | 2022-10-31 11:10 | P.PN ---
Subjective Progress Note Date: 10/31/22 The patient is a 62-year-old male who suffered a cardiac arrest at work. He had a prolonged downtime of at least 35 minutes. He had 2 additional VT arrests, where he was resuscitated by EMS. No purposeful movement on arrival to the hospital. He remains ventilated, however sedation has been weaned over the last 24 hours. No improvement in neurological function. Over the last 24 hours he has become more tachycardic and blood pressure has begun to rise. GENERAL: Il-appearing, well-nourished and in no acute distress. NEURO: No purposeful movement to painful stimuli. Positive reflexes. NECK: Supple without JVD or thyromegaly. LUNGS: Breath sounds clear to auscultation bilaterally. Respiration equal and unlabored. No wheezes, rales or rhonchi. HEART: Regular rate and rhythm without murmurs, rubs or gallops. S1 and S2 heard. EXTREMITIES: Normal range of motion, no edema. No clubbing or cyanosis. Peripheral pulses intact and strong VITALS: Blood pressure 166/93, respiratory rate 22, pulse rate 114, SpO2 99% on 40% FiO2 TELEMETRY: Sinus tachycardia overnight LABS: 17.3, hemoglobin 10.9, hematocrit 41.1, platelet 331, sodium 141, potassium 4.9, BUN 22, creatinine 1.09, magnesium 2.2 IMPRESSION: Cardiac arrest with prolonged downtime VT arrest with resuscitation by EMS Inferior myocardial infarction, admitted by ST elevation in the inferior leads and T-wave inversion in the high lateral leads Preserved LV function with mild inferior hypokinesis Anoxic brain injury, secondary to prolonged downtime PLAN: Maximize beta amber Continue dual antiplatelet therapy and statin Start low-dose lisinopril for hypertension Poor prognosis based on prolonged downtime I am dictating on behalf of Dr Jaret Laguna's history/physical and assessment/plan. Objective - Vital Signs Vital signs: Vital Signs Temp 99.2 F 10/31/22 08:00 Pulse 114 H 10/31/22 10:00 Resp 22 10/31/22 10:00 BP 166/93 10/31/22 10:00 Pulse Ox 99 10/31/22 10:00 FiO2 40 10/31/22 10:00 Intake & Output 10/30/22 10/31/22 10/31/22 18:59 06:59 18:59 Intake Total 0960.078 0896.032 609.662 Output Total 575 735 380 Balance 883.104 837.032 229.662 Weight 70.8 kg Intake: IV 940 760 200 Sodium Chloride 0.9% 1, 840 760 200 000 ml @ 70 mls/hr IV . [id number] [facility] Rx#:[id number] levETIRAcetam IV 1,000 mg 100 In Saline 1 100ml.bag @ 400 mls/hr IVPB ONCE STA Rx#:[id number] Intake, IV Titration 318.104 352.032 144.662 Amount Heparin Sod,Pork in 0.45% 233.519 152.032 NaCl 25,000 unit In 0.45 % NaCl 1 250ml.bag @ 12 UNITS/KG/HR 9.798 mls/hr IV .Q24H [facility] Rx#: [id number] levETIRAcetam IV 1,000 mg 100 100 In Saline 1 100ml.bag @ 400 mls/hr IVPB Q12HR [facility] Rx#:[id number] propofoL 1,000 mg In 84.585 100 44.662 Empty Bag 1 bag @ 15 MCG/ KG/MIN 7.348 mls/hr IV . [id number] [facility] Rx#:[id number] Tube Feeding 140 370 175 Other 60 90 90 Output: Urine 575 735 380 Other: Voiding Method Indwelling Catheter Indwelling Catheter Indwelling Catheter - Labs CBC & Chem 7: 10/31/22 05:25 10/31/22 05:19 Labs: Abnormal Lab Results - Last 24 Hours (Table) 10/30/22 10/30/22 10/30/22 Range/Units 11:43 15:24 16:28 WBC (3.8-10.6) k/uL RBC (4.30-5.90) m/uL Hgb (13.0-17.5) gm/dL Hct (39.0-53.0) % Neutrophils # (1.3-7.7) k/uL Lymphocytes # (1.0-4.8) k/uL APTT (22.0-30.0) sec ABG pCO2 (35-45) mmHg ABG pO2 (83-108) mmHg ABG O2 Saturation (94-97) % Chloride (98-107) mmol/L BUN (9-20) mg/dL Glucose (74-99) mg/dL POC Glucose (mg/dL) 146 H 151 H 121 H (70-110) mg/dL Calcium (8.4-10.2) mg/dL 10/30/22 10/30/22 10/31/22 Range/Units 20:40 23:33 00:22 WBC 12.3 H (3.8-10.6) k/uL RBC 4.05 L (4.30-5.90) m/uL Hgb 12.3 L (13.0-17.5) gm/dL Hct 36.1 L (39.0-53.0) % Neutrophils # 10.7 H (1.3-7.7) k/uL Lymphocytes # 0.9 L (1.0-4.8) k/uL APTT (22.0-30.0) sec ABG pCO2 (35-45) mmHg ABG pO2 (83-108) mmHg ABG O2 Saturation (94-97) % Chloride (98-107) mmol/L BUN (9-20) mg/dL Glucose (74-99) mg/dL POC Glucose (mg/dL) 133 H 116 H (70-110) mg/dL Calcium (8.4-10.2) mg/dL 10/31/22 10/31/22 10/31/22 Range/Units 04:08 05:19 05:25 WBC (3.8-10.6) k/uL RBC (4.30-5.90) m/uL Hgb (13.0-17.5) gm/dL Hct (39.0-53.0) % Neutrophils # (1.3-7.7) k/uL Lymphocytes # (1.0-4.8) k/uL APTT 85.2 H (22.0-30.0) sec ABG pCO2 (35-45) mmHg ABG pO2 (83-108) mmHg ABG O2 Saturation (94-97) % Chloride 108 H (98-107) mmol/L BUN 22 H (9-20) mg/dL Glucose 133 H (74-99) mg/dL POC Glucose (mg/dL) 130 H (70-110) mg/dL Calcium 8.2 L (8.4-10.2) mg/dL 10/31/22 10/31/22 10/31/22 Range/Units 05:25 05:53 08:41 WBC 17.3 H (3.8-10.6) k/uL RBC (4.30-5.90) m/uL Hgb (13.0-17.5) gm/dL Hct (39.0-53.0) % Neutrophils # 15.2 H (1.3-7.7) k/uL Lymphocytes # 0.8 L (1.0-4.8) k/uL APTT (22.0-30.0) sec ABG pCO2 32 L (35-45) mmHg ABG pO2 133 H (83-108) mmHg ABG O2 Saturation 98.2 H (94-97) % Chloride (98-107) mmol/L BUN (9-20) mg/dL Glucose (74-99) mg/dL POC Glucose (mg/dL) 132 H (70-110) mg/dL Calcium (8.4-10.2) mg/dL Microbiology - Last 24 Hours (Table) 10/29/22 17:56 Gram Stain - Preliminary Sputum Sputum Culture - Preliminary
[2022-10-31 12:23] LABS: Glucose,Whole Blood 128 mg/dL (70-110)
[2022-10-31] MEDS: ARTIFICIAL TEARS-HYPROMELLOSE DROPS 15 ML BTL BOTH EYES PRN ×2 (12:23→21:39)
--- NOTE | 2022-10-31 13:45 | P.PN ---
Subjective Progress Note Date: 10/31/22 The patient seen at bedside and according to the patient nurse she's been off sedation for 3 hours prior to me examine him (IV Propofol). Per the nurse no change in his condition. No twitches of the face other than that I would open and close more on the left than the right. Objective - Vital Signs Vital signs: Vital Signs Temp 102.2 F H 10/31/22 12:00 Pulse 104 H 10/31/22 12:00 Resp 23 10/31/22 12:00 BP 168/90 10/31/22 12:00 Pulse Ox 100 10/31/22 12:00 FiO2 40 10/31/22 12:00 Intake & Output 10/30/22 10/31/22 10/31/22 18:59 06:59 18:59 Intake Total 3211.882 9541.032 809.662 Output Total 575 735 480 Balance 883.104 837.032 329.662 Weight 70.8 kg Intake: IV 940 760 300 Sodium Chloride 0.9% 1, 840 760 300 000 ml @ 70 mls/hr IV . [id number] [facility] Rx#:[id number] levETIRAcetam IV 1,000 mg 100 In Saline 1 100ml.bag @ 400 mls/hr [facility]PB [facility] Rx#:[id number] Intake, IV Titration 318.104 352.032 144.662 Amount Heparin Sod,Pork in 0.45% 233.519 152.032 NaCl 25,000 unit In 0.45 % NaCl 1 250ml.bag @ 12 UNITS/KG/HR 9.798 mls/hr IV .Q24H [facility] Rx#: [id number] levETIRAcetam IV 1,000 mg 100 100 In Saline 1 100ml.bag @ 400 mls/hr IVPB Q12HR [facility] Rx#:[id number] propofoL 1,000 mg In 84.585 100 44.662 Empty Bag 1 bag @ 15 MCG/ KG/MIN 7.348 mls/hr IV . [id number] [facility] Rx#:[id number] Tube Feeding 140 370 245 Other 60 90 120 Output: Urine 575 735 480 Other: Voiding Method Indwelling Catheter Indwelling Catheter Indwelling Catheter - Exam General: Does not appear in acute distress. Lung: Intubated on ventilator. Neuro IV Propofol held for 3 hours prior to examination. Higher mental function: Is comatose. GCS6 (E4, VT1, M1) Cranial Nerves: Eyes are open and was opening his left eye more than right eye. Primary gaze is midline. Pupils are round about 2-3mm and reactive to light. No corneal reflex bilaterally. No facial weakness. Has intact gag reflex. Is breathing over the vent when. Motor: Strength is No withdrawal of uppers or lowers to painful stimuli to painful stimuli. Decrease tone throughout. Sensory: Not localizing. Some of the work-up during this hospital visit consisted of: TSH and ammonia level is within normal limits. Troponins trended up most current troponins 2.650. EKG is reported ST elevation, consider inferior injury. Acute [place] CT of the head is reported as sinusitis. No acute intracranial abnormality no hemorrhage. Stat EEG on 10/30/2022 is abnormal. The burst suppression is likely due to post anoxia. The burst suppression can be also seen due to medication effect (sedation versus status epilepticus. CT of the head is reported as no acute bleed or mass effect. Acute sphenoid and maxillary sinusitis. I personally reviewed that a CT of the head and I agree there is no acute subacute ischemia nor hemorrhage. There is no appreciable edema or mass effect. - Labs CBC & Chem 7: 10/31/22 05:25 10/31/22 05:19 Labs: Abnormal Lab Results - Last 24 Hours (Table) 10/30/22 10/30/22 10/30/22 Range/Units 15:24 16:28 20:40 WBC (3.8-10.6) k/uL RBC (4.30-5.90) m/uL Hgb (13.0-17.5) gm/dL Hct (39.0-53.0) % Neutrophils # (1.3-7.7) k/uL Lymphocytes # (1.0-4.8) k/uL APTT (22.0-30.0) sec ABG pCO2 (35-45) mmHg ABG pO2 (83-108) mmHg ABG O2 Saturation (94-97) % Chloride (98-107) mmol/L BUN (9-20) mg/dL Glucose (74-99) mg/dL POC Glucose (mg/dL) 151 H 121 H 133 H (70-110) mg/dL Calcium (8.4-10.2) mg/dL 10/30/22 10/31/22 10/31/22 Range/Units 23:33 00:22 04:08 WBC 12.3 H (3.8-10.6) k/uL RBC 4.05 L (4.30-5.90) m/uL Hgb 12.3 L (13.0-17.5) gm/dL Hct 36.1 L (39.0-53.0) % Neutrophils # 10.7 H (1.3-7.7) k/uL Lymphocytes # 0.9 L (1.0-4.8) k/uL APTT (22.0-30.0) sec ABG pCO2 (35-45) mmHg ABG pO2 (83-108) mmHg ABG O2 Saturation (94-97) % Chloride (98-107) mmol/L BUN (9-20) mg/dL Glucose (74-99) mg/dL POC Glucose (mg/dL) 116 H 130 H (70-110) mg/dL Calcium (8.4-10.2) mg/dL 10/31/22 10/31/22 10/31/22 Range/Units 05:19 05:25 05:25 WBC 17.3 H (3.8-10.6) k/uL RBC (4.30-5.90) m/uL Hgb (13.0-17.5) gm/dL Hct (39.0-53.0) % Neutrophils # 15.2 H (1.3-7.7) k/uL Lymphocytes # 0.8 L (1.0-4.8) k/uL APTT 85.2 H (22.0-30.0) sec ABG pCO2 (35-45) mmHg ABG pO2 (83-108) mmHg ABG O2 Saturation (94-97) % Chloride 108 H (98-107) mmol/L BUN 22 H (9-20) mg/dL Glucose 133 H (74-99) mg/dL POC Glucose (mg/dL) (70-110) mg/dL Calcium 8.2 L (8.4-10.2) mg/dL 10/31/22 10/31/22 10/31/22 Range/Units 05:53 08:41 12:20 WBC (3.8-10.6) k/uL RBC (4.30-5.90) m/uL Hgb (13.0-17.5) gm/dL Hct (39.0-53.0) % Neutrophils # (1.3-7.7) k/uL Lymphocytes # (1.0-4.8) k/uL APTT (22.0-30.0) sec ABG pCO2 32 L (35-45) mmHg ABG pO2 133 H (83-108) mmHg ABG O2 Saturation 98.2 H (94-97) % Chloride (98-107) mmol/L BUN (9-20) mg/dL Glucose (74-99) mg/dL POC Glucose (mg/dL) 132 H 128 H (70-110) mg/dL Calcium (8.4-10.2) mg/dL Assessment and Plan Assessment: This is a 62-year-old gentleman with had a cardiopulmonary arrest while at work and was down time for a total of possibly 35 minutes. Cardiac arrest with a total downtown about 35 minutes. Patient had repored CPR immediately. Likely Anoxic brain injury due to above encephalopathy due to prolonged cardiac arrest (has some brainstem function) Myloclonic seizure (facial and body) due to above--resolved Acute STEMI, inferior wall myocardial infarction Liver shock likely due to cardiac arrest Acute kidney injury likely due to cardiac arrest Diabetes mellitus type 2 Hypertension Plan: EEG STAT: Is abnormal. Has burst suppression and can be seen in post anoxia. Can be seen in medication induced or status epilepticus but in this situation it appears anoxia. Is on Keppra 1gm bid. I also added Valproic acid 250mg every 6 hours since having left eye abnormal jerks concerning for seizure. Ordered repeat AST and ALT. Continue neuro checks We'll defer the rest of the medical management to the ICU and cardiology team Condition is critical. Because of prolonged down time, burst suppression and myoclonic jerks, therefore prognosis appears poor. The plan is discussed with his and his nurse. Dr. Tabares will start neurology service tomorrow A.M. Time with Patient: Less than 30
[2022-10-31] MEDS: ACETAMINOPHEN IV (For NPO) 1,000 MG in EMPTY BAG 1 BAG IVPB SCH ×2 (13:56→18:52)
[2022-10-31] MEDS: PIPERACILLIN-TAZOBACTAM 3.375 GM in SODIUM CHLORIDE 0.9% 100 ML IVPB SCH (14:08)
[2022-10-31 14:20] LABS: ALT 137 U/L (4-49); AST 108 U/L (17-59)
[2022-10-31] MEDS: VALPROATE SODIUM 250 MG in SODIUM CHLORIDE 0.9% 100 ML IVPB SCH (14:45)
--- NOTE | 2022-10-31 15:33 | P.PN ---
Subjective Progress Note Date: 10/31/22 Principal diagnosis: Acute alcohol withdrawal, delirium tremens Altered mental status secondary to above 62-year-old male patient presented to ED with cardiac arrest which was witnessed by a coworker patient was working at the near by of [email or web address]; CPR was started resulting in return of spontaneous circulation; in the ED patient went into VT/fibrillation and required defibrillation and was coded for another 5 minutes after which she had return of spontaneous circulation; total downtime is estimated to be around 35 minutes The patient was apparently pulseless of the time of arrival to the emergency department. Subsequently, he regained blood pressure and his most recent blood pressure 190/100. The patient is currently intubated on a mechanical ventilator. EKG showed a inferior wall ST segment elevation myocardial infarction. Cardiology was informed. Cardiac catheterization was declined based on his prolonged downtime. In ICU patient remains on mechanical ventilator with post intubation chest x-ray reveals pulmonary edema with ET tube in good position Echocardiogram has been ordered and pending His initial troponin set was negative. Blood work reveals a WBC of 6.3 with a hemoglobin 12.7 and a platelet count of 360. Normal chemical profile. Bicarbs at 17 with a BUN of 27 and a creatinine of 1.47. Lactic acid level was at 8.5. Glucose of 471. 10/31/2022 Patient is seen and evaluated in ICU Earlier this morning at around 4 AM, the patient was admitted to the ICU with altered mentation and significant agitation or restlessness and confusion. He was started on Precedex drip which is currently running at 0.9 mcg/kg/h.. His agitation is under adequate control for now, he is arousable and is following some simple commands. Is currently on room air oxygen. Hemodynamically stable. Patient remains on IV fluids in form of normal saline at rate of 75 mL an hour; remains on Precedex infusion which will be titrated for agitation; continue with thiamine and folic acid -- Patient has been placed on Seroquel, Cymbalta and prazosin for psych recommendations - Continue with CIWA protocol with Ativan and Librium 25 mg 3 times a day Objective - Vital Signs Vital signs: Vital Signs Temp 99.2 F 10/31/22 08:00 Pulse 106 H 10/31/22 08:00 Resp 20 10/31/22 08:00 BP 152/84 10/31/22 08:00 Pulse Ox 100 10/31/22 08:00 FiO2 40 10/31/22 08:00 Intake & Output 10/30/22 10/31/22 10/31/22 18:59 06:59 18:59 Intake Total 7683.269 7120.032 124.682 Output Total 575 735 80 Balance 883.104 837.032 44.682 Weight 70.8 kg Intake: IV 940 760 50 Sodium Chloride 0.9% 1, 840 760 50 000 ml @ 70 mls/hr IV . [id number] [facility] Rx#:[id number] levETIRAcetam IV 1,000 mg 100 In Saline 1 100ml.bag @ 400 mls/hr IVPB ONCE [facility] Rx#:[id number] Intake, IV Titration 318.104 352.032 39.682 Amount Heparin Sod,Pork in 0.45% 233.519 152.032 NaCl 25,000 unit In 0.45 % NaCl 1 250ml.bag @ 12 UNITS/KG/HR 9.798 mls/hr IV .Q24H [facility] Rx#: [id number] levETIRAcetam IV 1,000 mg 100 In Saline 1 100ml.bag @ 400 mls/hr IVPB Q12HR [facility] Rx#:[id number] propofoL 1,000 mg In 84.585 100 39.682 Empty Bag 1 bag @ 15 MCG/ KG/MIN 7.348 mls/hr IV . [id number] [facility] Rx#:[id number] Tube Feeding 140 370 35 Other 60 90 Output: Urine 575 735 80 Other: Voiding Method Indwelling Catheter Indwelling Catheter - Exam GENERAL: The patient is intubated and mechanically ventilated; patient has an o ral gastric and oral tracheal tube in place HEENT: Pupils are round and equally reacting to light. EOMI. No scleral icterus. No conjunctival pallor. Normocephalic, atraumatic. No pharyngeal erythema. No thyromegaly. CARDIOVASCULAR: S1 and S2 present. No murmurs, rubs, or gallops. PULMONARY: Chest is clear to auscultation, no wheezing or crackles. ABDOMEN: Soft, nontender, nondistended, normoactive bowel sounds. No palpable organomegaly. MUSCULOSKELETAL: No joint swelling or deformity. EXTREMITIES: No cyanosis, clubbing, or pedal edema. NEUROLOGICAL: Unable to evaluate; patient remains unresponsive SKIN: No rashes. - Labs CBC & Chem 7: 10/31/22 05:25 10/31/22 05:19 Labs: Abnormal Lab Results - Last 24 Hours (Table) 10/30/22 10/30/22 10/30/22 Range/Units 03:37 08:31 11:43 WBC (3.8-10.6) k/uL RBC (4.30-5.90) m/uL Hgb (13.0-17.5) gm/dL Hct (39.0-53.0) % Neutrophils # (1.3-7.7) k/uL Lymphocytes # (1.0-4.8) k/uL APTT (22.0-30.0) sec ABG pCO2 (35-45) mmHg ABG pO2 (83-108) mmHg ABG O2 Saturation (94-97) % Chloride (98-107) mmol/L BUN (9-20) mg/dL Glucose (74-99) mg/dL POC Glucose (mg/dL) 147 H 146 H (70-110) mg/dL Hemoglobin A1c 10.2 H (0.0-6.0) % Calcium (8.4-10.2) mg/dL 10/30/22 10/30/22 10/30/22 Range/Units 15:24 16:28 20:40 WBC (3.8-10.6) k/uL RBC (4.30-5.90) m/uL Hgb (13.0-17.5) gm/dL Hct (39.0-53.0) % Neutrophils # (1.3-7.7) k/uL Lymphocytes # (1.0-4.8) k/uL APTT (22.0-30.0) sec ABG pCO2 (35-45) mmHg ABG pO2 (83-108) mmHg ABG O2 Saturation (94-97) % Chloride (98-107) mmol/L BUN (9-20) mg/dL Glucose (74-99) mg/dL POC Glucose (mg/dL) 151 H 121 H 133 H (70-110) mg/dL Hemoglobin A1c (0.0-6.0) % Calcium (8.4-10.2) mg/dL 10/30/22 10/31/22 10/31/22 Range/Units 23:33 00:22 04:08 WBC 12.3 H (3.8-10.6) k/uL RBC 4.05 L (4.30-5.90) m/uL Hgb 12.3 L (13.0-17.5) gm/dL Hct 36.1 L (39.0-53.0) % Neutrophils # 10.7 H (1.3-7.7) k/uL Lymphocytes # 0.9 L (1.0-4.8) k/uL APTT (22.0-30.0) sec ABG pCO2 (35-45) mmHg ABG pO2 (83-108) mmHg ABG O2 Saturation (94-97) % Chloride (98-107) mmol/L BUN (9-20) mg/dL Glucose (74-99) mg/dL POC Glucose (mg/dL) 116 H 130 H (70-110) mg/dL Hemoglobin A1c (0.0-6.0) % Calcium (8.4-10.2) mg/dL 10/31/22 10/31/22 10/31/22 Range/Units 05:19 05:25 05:25 WBC 17.3 H (3.8-10.6) k/uL RBC (4.30-5.90) m/uL Hgb (13.0-17.5) gm/dL Hct (39.0-53.0) % Neutrophils # 15.2 H (1.3-7.7) k/uL Lymphocytes # 0.8 L (1.0-4.8) k/uL APTT 85.2 H (22.0-30.0) sec ABG pCO2 (35-45) mmHg ABG pO2 (83-108) mmHg ABG O2 Saturation (94-97) % Chloride 108 H (98-107) mmol/L BUN 22 H (9-20) mg/dL Glucose 133 H (74-99) mg/dL POC Glucose (mg/dL) (70-110) mg/dL Hemoglobin A1c (0.0-6.0) % Calcium 8.2 L (8.4-10.2) mg/dL 10/31/22 Range/Units 05:53 WBC (3.8-10.6) k/uL RBC (4.30-5.90) m/uL Hgb (13.0-17.5) gm/dL Hct (39.0-53.0) % Neutrophils # (1.3-7.7) k/uL Lymphocytes # (1.0-4.8) k/uL APTT (22.0-30.0) sec ABG pCO2 32 L (35-45) mmHg ABG pO2 133 H (83-108) mmHg ABG O2 Saturation 98.2 H (94-97) % Chloride (98-107) mmol/L BUN (9-20) mg/dL Glucose (74-99) mg/dL POC Glucose (mg/dL) (70-110) mg/dL Hemoglobin A1c (0.0-6.0) % Calcium (8.4-10.2) mg/dL Microbiology - Last 24 Hours (Table) 10/29/22 17:56 Gram Stain - Preliminary Sputum Sputum Culture - Preliminary Assessment and Plan Assessment: 1. Acute STEMI, inferior wall myocardial infarction; Cardiac arrest, witnessed, CPR and resuscitation was initiated on the scene and the patient was brought into the emergency department where CPR resuscitation was continued and there was return respiratory circulation probably within 35 minutes. -- Cardiology is already evaluated the patient and declined cardiac catheterization based on his prolonged downtime - Patient is to be treated medically; remains on IV heparin per protocol and aspirin; cardiology recommending to start patient on metoprolol 50 mg twice a day - Echocardiogram is ordered and pending 2. Acute toxic respiratory failure; vent dependent; secondary to above; plan is to continue with mechanical ventilator; plan to gradually weaned down FiO2; blood gases will be monitored 3. Unresponsiveness/comatose state, likely secondary to underlying anoxic enc ephalopathy; computed tomography scan of the pain is ordered 4. Acute pulmonary edema with bilateral pulmonary infiltrates and cephalization based on the chest x-ray; patient received Lasix 40 mg IV 1 - Echocardiogram is ordered and pending; further recommendations once e chocardiogram results are available 5. Acute kidney injury; we will continue to monitor strict ARIADNE's, daily weights, renal function and electrolytes; avoid nephrotoxins; hold off on IV fluid hydration given pulmonary edema 6. Acute lactic acidosis secondary to above; likely related to dehydration 7. Hyperglycemia/Diabetes mellitus type 2 with hyperglycemia secondary to above; for now patient is in placed an IV insulin infusion; we will monitor CBC, CMP and progesterone 8. Hypertension; patient has been placed on metoprolol 50 mg twice a day; continue with hydralazine 10 mg IV every 4-6 hours when necessary for systolic blood pressure greater than 160 DVT prophylaxis; SCDs/IV heparin CODE STATUS; full code
[2022-10-31 15:50] LABS: Glucose,Whole Blood 123 mg/dL (70-110)
[2022-10-31] MEDS: MIDAZOLAM HCL 50 MG in SODIUM CHLORIDE 0.9% 40 ML IV SCH (19:10)
[2022-10-31] MEDS ORDERED: ACETAMINOPHEN IV (For NPO) 1,000 MG in EMPTY BAG 1 BAG IVPB PRN (19:59)
[2022-10-31 21:37] LABS: Glucose,Whole Blood 138 mg/dL (70-110)
[2022-10-31] MEDS: ATORVASTATIN 80 MG TAB PO SCH (21:37)
[2022-10-31] MEDS ORDERED: LORazepam 2 MG/ML INJ IV ONE (21:57)
[2022-11-01] MEDS: PIPERACILLIN-TAZOBACTAM 3.375 GM in SODIUM CHLORIDE 0.9% 100 ML IVPB SCH ×3 (00:12→16:49)
[2022-11-01] MEDS: VALPROATE SODIUM 250 MG in SODIUM CHLORIDE 0.9% 100 ML IVPB SCH ×4 (00:12→17:24)
[2022-11-01] MEDS: INSULIN ASPART (NovoLOG) 100 UNIT/ML VIAL SQ SCH ×6 (00:15→22:38)
[2022-11-01 00:16] LABS: Glucose,Whole Blood 143 mg/dL (70-110)
[2022-11-01 04:08] LABS: Glucose,Whole Blood 99 mg/dL (70-110)
[2022-11-01] MEDS: INSULIN DETEMIR (LEVEMIR) 100 UNIT/ML SYR SQ SCH ×2 (06:22→20:30)
[2022-11-01 06:23] LABS: Basophils % (A) 0 %; Eosinophils % (A) 0 %; HCT 35.4 % (39.0-53.0); HGB 12.1 gm/dL (13.0-17.5); Lymphocytes # (A) 0.8 k/uL (1.0-4.8); Lymphocytes % (A) 7 %; MCH 30.8 pg (25.0-35.0); MCHC 34.2 g/dL (31.0-37.0); MCV 90.1 fL (80.0-100.0); Mean Platelet Volume 7.1; Monocytes # (A) 0.7 k/uL (0-1.0); Monocytes % (A) 6 %; Neutrophils # (A) 9.9 k/uL (1.3-7.7); Neutrophils % (A) 85 %; Platelet Count 310 k/uL (150-450); RBC 3.93 m/uL (4.30-5.90); WBC 11.8 k/uL (3.8-10.6)
[2022-11-01 06:27] LABS: ABG Base Excess -0.4 mmol/L; ABG HCO3 24 mmol/L (21-25); ABG Oxygen Saturation 98.1 % (94-97); ABG PCO2 35 mmHg (35-45); ABG PH 7.44 (7.35-7.45); ABG PO2 125 mmHg (83-108); ABG TCO2 25 mmol/L (19-24); Allen Test Performed? Yes
[2022-11-01 06:57] LABS: African American GFR (CKD) >90 (>60 ml/min/1.73 sqM); Anion Gap 10 mmol/L; Blood Urea Nitrogen 25 mg/dL (9-20); Calcium 8.2 mg/dL (8.4-10.2); Carbon Dioxide 22 mmol/L (22-30); Chloride 112 mmol/L (98-107); Glucose 122 mg/dL (74-99); Non-African American GFR(CKD) >90 (>60 ml/min/1.73 sqM); Sodium 144 mmol/L (137-145)
[2022-11-01 07:17] LABS: Potassium 4.7 mmol/L (3.5-5.1)
--- NOTE | 2022-11-01 08:50 | XR ---
EXAMINATION TYPE: XR chest 1V portable DATE OF EXAM: 11/01/2022 COMPARISON: 10/31/2022 HISTORY: Tube placement TECHNIQUE: Single frontal view of the chest is obtained. FINDINGS: Stable endotracheal and orogastric tubes. Mild increased central markings redemonstrated. No new peripheral focal airspace opacity, pleural effusion, or pneumothorax seen bilaterally. Cardiac silhouette size is stable and within normal limits. Osseous structures are intact. IMPRESSION: Stable left-sided consolidation and small effusion. No overt failure on today's exam.
[2022-11-01 09:14] LABS: Glucose,Whole Blood 98 mg/dL (70-110)
[2022-11-01] MEDS: CLOPIDOGREL 75 MG TAB PO SCH (09:41)
[2022-11-01] MEDS: levETIRAcetam IV 1,000 MG in SALINE 1 100ML.BAG IVPB SCH ×2 (09:41→20:27)
[2022-11-01] MEDS: PANTOPRAZOLE 40 MG/10 ML VIAL IV SCH (09:41)
[2022-11-01] MEDS: ENOXAPARIN 40 MG/0.4 ML SYRINGE SQ SCH (09:41)
[2022-11-01] MEDS: METOPROLOL TARTRATE 50 MG TAB PO SCH ×2 (09:41→20:27)
[2022-11-01] MEDS: ASPIRIN 81 MG PO SCH (09:41)
[2022-11-01] MEDS: CHLORHEXIDINE GLUCONATE 15 ML CUP MUCOUS MEM SCH ×2 (09:41→20:27)
--- NOTE | 2022-11-01 10:43 | PN ---
PROGRESS NOTE HISTORY OF PRESENT ILLNESS: This is a 62-year-old gentleman whom I am seeing for the first time, presented to hospital on 10/29 with acute inferior wall myocardial infarction. He apparently had a prolonged downtime and on his initial evaluation with the knife setter a decision was made not to take him for cardiac cath. It appears as if he suffered from hypoxic encephalopathy, currently intubated on vent. He does not have any spontaneous activity. PHYSICAL EXAMINATION: GENERAL: The patient is intubated, sedated on vent. VITAL SIGNS: Heart rate is 79 beats per minute, blood pressure is 134/76, respiratory rate is 18. CHEST: Reveals good air entry bilaterally. HEART: Reveals first and second heart sounds. No gallop, no murmur. ABDOMEN: Soft. EXTREMITIES: Did not reveal any edema. Peripheral pulses are felt. LABORATORY DATA: Show hemoglobin of 12.1, platelet count is 310, potassium is 4.7, creatinine is 0.8. The patient is on aspirin, Lipitor, Plavix, Lopressor, Zestril. Echocardiogram showed preserved LV function with inferior wall hypokinesis. ASSESSMENT: 1. Status post cardiorespiratory arrest secondary to inferior wall myocardial infarction. 2. Hypoxic encephalopathy. PLAN: The patient will continue current medications. Prognosis remains guarded. MMODL / IJN: [id number] /
--- NOTE | 2022-11-01 12:02 | P.CONS ---
History of Present Illness - Reason for Consult Consult date: 11/01/22 wound care - History of Present Illness This is a 62-year-old gentleman who is intubated after a stemi and anoxic brain injury post resuscitation. Patient is being seen in the ICU for a left and right diabetic foot ulcer on the fourth digit. Both ulcerations measure approximately 0.1 x 0.1 x 0.[address] no drainage or open ulceration noted. At this time no aggressive treatment. Review of systems: Unable to obtain due to intubation Physical exam: General Appearance: Alert, cooperative, no distress, appears stated age. Skin: See HPI all other Skin color, texture, tugor normal, no rashes or lesions. Neurologic: Alert oriented x3 Assessment: 1. Peripheral vascular disease 2. Diabetic foot ulcer Plan: 1. Continue to utilize foam boots for offloading. Thank you for the consultation any questions with contact the wound care center DNP note has been reviewed and discussed with Dr. Carter and the impression and plan of care has been directed as dictated. Past Medical History Past Medical History: Diabetes Mellitus, Hypertension Additional Past Medical History / Comment(s): PVD/PAD to BLE History of Any Multi-Drug Resistant Organisms: None Reported Additional Past Surgical History / Comment(s): venous or arterial imaging of BLE per in 2021 Past Anesthesia/Blood Transfusion Reactions: No Reported Reaction Past Psychological History: Depression Smoking Status: Never smoker Medications and Allergies Home Medications Medication Instructions Recorded Confirmed Type Empagliflozin [Jardiance] 25 mg PO DAILY 10/29/22 10/29/22 History Insulin Degludec [Tresiba 20 units SQ HS 10/29/22 10/29/22 History Flextouch U-100 Pen] Nortriptyline [Pamelor] 25 mg PO BID 10/29/22 10/29/22 History OXcarbazepine [Trileptal] 300 mg PO DAILY 10/29/22 10/29/22 History carvediloL [Coreg] 12.5 mg PO BID 10/29/22 10/29/22 History lisinopriL [Prinivil] 20 mg PO DAILY 10/29/22 10/29/22 History metFORMIN HCL [Glucophage] 1,000 mg PO BID 10/29/22 10/29/22 History Allergies Allergy/AdvReac Type Severity Reaction Status Date / Time No Known Allergies Allergy Unverified 10/29/22 15:00 Physical Exam Vitals: Vital Signs Temp Pulse Resp BP Pulse Ox FiO2 11/01/22 11:36 35 11/01/22 11:00 84 16 134/78 98 35 11/01/22 10:00 81 13 153/83 99 35 11/01/22 09:00 79 20 134/76 100 40 11/01/22 08:00 97.5 F L 74 13 150/84 99 35 11/01/22 07:57 40 11/01/22 07:00 73 20 133/72 99 11/01/22 06:00 73 16 144/77 99 11/01/22 05:00 68 20 138/74 100 11/01/22 04:22 40 11/01/22 04:00 97.9 F 64 20 127/70 100 40 11/01/22 03:00 62 20 127/77 100 11/01/22 02:00 61 20 118/67 100 11/01/22 01:00 61 20 132/74 100 11/01/22 00:00 97.5 F L 64 20 114/65 100 40 10/31/22 23:48 40 10/31/22 23:10 61 20 114/65 99 10/31/22 23:00 61 20 114/65 100 10/31/22 22:00 80 12 154/84 100 10/31/22 21:00 87 14 143/79 100 10/31/22 20:26 40 10/31/22 20:00 97.6 F 93 25 H 152/93 99 40 10/31/22 19:00 100.2 F H 88 20 159/85 100 40 10/31/22 18:00 100.9 F H 89 24 147/79 100 40 10/31/22 17:00 102.0 F H 93 24 141/78 100 40 10/31/22 16:00 102.6 F H 96 23 137/72 99 40 10/31/22 15:18 40 10/31/22 15:00 102.9 F H 99 21 147/85 100 40 10/31/22 14:00 102.9 F H 102 H 20 147/79 99 40 10/31/22 13:00 102.2 F H 109 H 21 164/93 100 40 10/31/22 12:00 102.2 F H 104 H 20 168/90 100 40 Intake and Output 10/31/22 11/01/22 11/01/22 22:59 06:59 14:59 Intake Total 1360 1088.582 425 Output Total 550 520 350 Balance 810 568.582 75 Intake: IV 350 400 250 Sodium Chloride 0.9% 1, 350 400 250 000 ml @ 70 mls/hr IV . [id number] [facility] Rx#:[id number] Intake, IV Titration 600 348.582 Amount ACETAMINOPHEN IV (For NPO 100 ) 1,000 mg In Empty Bag 1 bag @ 400 mls/hr IVPB Q6HR [facility] Rx#:[id number] ACETAMINOPHEN IV (For NPO 200 ) 1,000 mg In Empty Bag 1 bag @ 400 mls/hr IVPB Q6HR [facility] Rx#:[id number] Piperacillin-Tazobactam 3 100 100 .375 gm In Sodium Chloride 0.9% 100 ml @ 25 mls/hr IVPB Q8HR [facility] Rx# :[id number] Valproate Sodium 250 mg 100 200 In Sodium Chloride 0.9% 100 ml @ 100 mls/hr IVPB Q6HR [facility] Rx#:[id number] levETIRAcetam IV 1,000 mg 100 In Saline 1 100ml.bag @ 400 mls/hr IVPB Q12HR [facility] Rx#:[id number] propofoL 1,000 mg In 0 48.582 Empty Bag 1 bag @ 15 MCG/ KG/MIN 7.348 mls/hr IV . [id number] [facility] Rx#:[id number] Tube Feeding 350 280 175 Other 60 60 Output: Urine 550 520 350 Other: Voiding Method Indwelling Catheter Indwelling Catheter Indwelling Catheter Results CBC & Chem 7: 11/01/22 06:06 11/01/22 05:36 Labs: Abnormal Lab Results - Last 24 Hours (Table) 10/31/22 10/31/22 10/31/22 Range/Units 12:20 13:30 15:48 WBC (3.8-10.6) k/uL RBC (4.30-5.90) m/uL Hgb (13.0-17.5) gm/dL Hct (39.0-53.0) % Neutrophils # (1.3-7.7) k/uL Lymphocytes # (1.0-4.8) k/uL ABG pO2 (83-108) mmHg ABG Total CO2 (19-24) mmol/L ABG O2 Saturation (94-97) % Chloride (98-107) mmol/L BUN (9-20) mg/dL Glucose (74-99) mg/dL POC Glucose (mg/dL) 128 H 123 H (70-110) mg/dL Calcium (8.4-10.2) mg/dL AST 108 H (17-59) U/L ALT 137 H (4-49) U/L 10/31/22 11/01/22 11/01/22 Range/Units 21:36 00:15 05:36 WBC (3.8-10.6) k/uL RBC (4.30-5.90) m/uL Hgb (13.0-17.5) gm/dL Hct (39.0-53.0) % Neutrophils # (1.3-7.7) k/uL Lymphocytes # (1.0-4.8) k/uL ABG pO2 (83-108) mmHg ABG Total CO2 (19-24) mmol/L ABG O2 Saturation (94-97) % Chloride 112 H (98-107) mmol/L BUN 25 H (9-20) mg/dL Glucose 122 H (74-99) mg/dL POC Glucose (mg/dL) 138 H 143 H (70-110) mg/dL Calcium 8.2 L (8.4-10.2) mg/dL AST (17-59) U/L ALT (4-49) U/L 11/01/22 11/01/22 Range/Units 06:06 06:25 WBC 11.8 H (3.8-10.6) k/uL RBC 3.93 L (4.30-5.90) m/uL Hgb 12.1 L (13.0-17.5) gm/dL Hct 35.4 L (39.0-53.0) % Neutrophils # 9.9 H (1.3-7.7) k/uL Lymphocytes # 0.8 L (1.0-4.8) k/uL ABG pO2 125 H (83-108) mmHg ABG Total CO2 25 H (19-24) mmol/L ABG O2 Saturation 98.1 H (94-97) % Chloride (98-107) mmol/L BUN (9-20) mg/dL Glucose (74-99) mg/dL POC Glucose (mg/dL) (70-110) mg/dL Calcium (8.4-10.2) mg/dL AST (17-59) U/L ALT (4-49) U/L Microbiology - Last 24 Hours (Table) 10/29/22 17:56 Gram Stain - Final Sputum Sputum Culture - Final Assessment and Plan (1) Peripheral vascular disease Current Visit: Yes Status: Acute Code(s): I73.9 - PERIPHERAL VASCULAR DISEASE, UNSPECIFIED SNOMED Code(s): 964651739 (2) Type 2 diabetes mellitus with foot ulcer Current Visit: Yes Status: Acute Code(s): E11.621 - TYPE 2 DIABETES MELLITUS WITH FOOT ULCER; L97.509 - NON-PRESSURE CHRONIC ULCER OTH PRT UNSP FOOT W UNSP SEVERITY SNOMED Code(s): 635212578
[2022-11-01] MEDS: lisinopriL 5 MG TAB PO SCH (12:49)
[2022-11-01 13:27] LABS: Glucose,Whole Blood 137 mg/dL (70-110)
--- NOTE | 2022-11-01 13:35 | P.PN ---
Subjective Progress Note Date: 11/01/22 Principal diagnosis: Cardiac arrest 62-year-old male patient who presented to the ED with a cardiac arrest. 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 He was witnessed arrest by coworker. CPR was immediately started. The patient was hooked to an AICD and the patient was given 2 shocks. EMS called to the scene, and upon their arrival, the patient was then PA and the patient was given a total of 4 was of epinephrine, 1 dose of amiodarone. He coded for a total of 30 minutes with a short period of time when there was a return returnto his circulation. He also went into ventricular tachycardia/fibrillation and required defibrillation. Upon arrival to the emergency, the patient was coded for another 5 minutes and there was return of spontaneous circulation. I believe the total down time was around 35 minutes. The patient was apparently pulseless of the time of arrival to the emergency department. Subsequently, he regained blood pressure and his most recent blood pressure 190/100. The patient is currently intubated on a mechanical ventilator. EKG showed a inferior wall ST segment elevation myocardial infarction. Cardiology was informed. Cardiac catheterization was declined based on his prolonged downtime. At this point in time, the patient was seen in the emergency. He is on a mechanical ventilator, assist control 14, tidal volume of 450, FiO2 100% and a PEEP of 5. His chest x-ray showing pulmonary edema ET tube is in a good location. Echocardiogram was ordered and it will be done within next few minutes. Arango catheter is in place and the patient has good urine output. The patient is on no sedation. He is somewhat asynchronous a mechanical ventilator, trying to breathe above the vent setting and becoming asynchronous. I recommend ed to start the patient on propofol. He was given rectal aspirin. He was started on IV heparin. The blood pressure was noted to be elevated. Recommended metoprolol 50 mg twice a day, hydralazine as needed and Lasix. Neurologically impaired. The patient is unresponsive. Pupils are 3 mm in size, sluggishly reactive to light. No other withdrawing to any painful stimulation. His initial troponin set was negative. The B cigars at 6.3 with a hemoglobin 12.7 and a platelet count of 360. Normal cognition profile. Bicarbs at 17 with a BUN of 27 and a creatinine of 1.47. Lactic acid level was at 8.5. Glucose of 471. He is diabetic. 10/30/2022, the patient's is being seen in the intensive care unit, intubated on a mechanical ventilator. Currently on propofol which is running at 25 mcg/kg/m to maintain synchrony with a mechanical ventilator. Neurologically, he has upward gaze, he does have sensation to pain as the patient moves his arms and legs to deep painful stimulation. An accurate motor and sensory evaluation cannot be done. The patient does not follow any commands. No seizure activity has been noted. The patient was seen by neurology yesterday. CAT scan of the brain was done that showed no acute abnormalities. At the same time, the patient was seen by neurology and started on IV Keppra empirically. Anoxic encephalopathy is highly suspected because of his prolonged downtime following the cardiac arrest. EEG is to follow today. In terms of respiratory support, the patient remains on a mechanical ventilator. Is on a rate of 20, tidal volume of 450, FiO2 of 50% with a PEEP of 5, and a morning blood gases showed a pH of 7.45 with a pCO2 of 36 and pO2 of 3:30 and this was an FiO2 of 100%, as such, the FiO2 was dropped onto 50%. The chest x-ray from today shows some improvement in the pulmonary edema. There is still some underlying cephalization. No airspace disease or consolidations. EKG was in a good location. The patient is afebrile for now. No significant respiratory secretions. The patient is quite successful mechanical ventilator. Hem odynamically, the patient has a stable blood pressure. No pressors were utilized. The patient is currently on IV fluids at 70 mL an hour normal saline. Troponins peaked at 2.6. Echocardiogram was done yesterday and the patient was found to have mildly increased left ventricular wall thickness, ejection fraction on the left was 55%, normal RV, there was some mild inferior wall hypokinesis which goes along with his acute ST segment elevation inferior wall myocardial infarction. The patient remains on IV heparin. PTT is therapeutic. Lactic acid level dropped from 8.5 down to 2.6. Urine drug screen was done and the patient was positive for tricyclics and benzodiazepines. On today's evaluation of 10/31/2022, the patient remains in anoxic encephalopathy, comatose, unresponsive. Positive cough. Positive blink. Positive corneal and gag reflex. Unresponsive to any verbal or painful s timulation. At times, we noticed the he withdraws to deep painful stimulation. No seizure activity has been noted. EEG was done yesterday and it was consistent with diffuse encephalopathy and signs of anoxic encephalopathy. CAT scan of the chest was negative. Neurologic is on the case. The patient remains on Keppra. Meanwhile, the patient remains intubated on a mechanical ventilator. Is on assist-control mode at the rate of 20, tidal volume of 450 with an FiO2 of 40% with PEEP of 5. Blood gas from today shows a pH of 7.42 with a pCO2 of 32 and a pO2 of 133. The chest x-ray from today is showing adequate expansion of both lungs. ET tube is in a good location. There may be some left lower lobe atelectasis. Orogastric tube is also in place. No airspace disease or consolidations. The patient remains on low-dose propofol which is running at 20 mcg/kg/m and this was essentially to maintain synchrony. He was given a sedation holiday yesterday without any signs of neurological recovery. The same will be done today. He is hemodynamically stable in normal sinus rhythm. Is on no pressors. He is maintaining his pressure for now. No cardiac arrhythmias of been noted. He remains on IV heparin. He is on aspirin. He was started on enteral feeding for nutritional support. Echo of the heart was noted yesterday and the patient has no LV dysfunction and the patient had some mild inferior wall hypokinesis. In terms of the rest of the labs done today, the patient has a WBC count of 17.3 with hemoglobin 13.9 and a platelet count of 331. Bicarb is 25, sodium is at 141, potassium level is at 4.9, glucose is 133. The patient is currently receiving enteral feeding in the form of Glucerna at the rate of 75 mL an hour. His blood sugars have been under adequate control and the patient is currently on a sliding scale insulin coverage. I also added Levemir 11 units a day for blood sugar control. Patient was reevaluated today on 11/01/2022, remains in the ICU intubated and mechanically ventilated is now on assist control rate of 20 tidal volume 450 FiO2 40% and PEEP of 5. ABG showed a pO2 of 125 pCO2 35 pH of 7.44 hence FiO2 was cut down to 35%. Patient was off sedation for 24 hours, however he developed seizures and seizure-like activities requiring Ativan, and he is back now on propofol at 10 mcg/kg/m and receiving Ativan intermittently. Although the patient is on Keppra and valproic acid. Receiving Glucerna at 35 mL/h IV fluid 0.9 normal saline at 50 mL/h patient remains on Zosyn empirically. Endotracheal tube was ordered to be adjusted and we will advance the endotracheal tube to see him today. Chest x-ray continues to show stable left sided consolidation and small effusion remains on antibiotics/Zosyn. Remind you patient had an initial presentation of cardiac arrest, he had CPR for good 25 minutes, he received epinephrine 4, he also received amiodarone, and his presentation was presentation of ST elevation myocardial infarction via cat heterization was done because of his prolonged down condition and his overall neurological status. Patient is being followed by neurology for his suspected anoxic brain injury with seems to be quite severe but the patient is not brain . Patient remains obviously quite encephalopathic, and he continues to have myoclonic seizures not to mention his other medical problems including inferior wall NM, shock liver, and acute kidney injury likely secondary to his cardiac arrest. His renal injury has resolved and his creatinine is down to 0.83. Elects lites are normal. WBC count is 11.8 hemoglobin 12.1. Liver enzymes have been gradually improving. And his troponin has been trending down since admission Objective - Vital Signs Vital signs: Vital Signs Temp 97.5 F L 11/01/22 08:00 Pulse 69 11/01/22 12:00 Resp 20 11/01/22 12:00 BP 157/90 11/01/22 12:00 Pulse Ox 99 11/01/22 12:00 FiO2 35 11/01/22 12:00 Intake & Output 10/31/22 11/01/22 11/01/22 18:59 06:59 18:59 Intake Total 2614.782 5193.582 475 Output Total 835 800 400 Balance 834.750 9536.582 75 Weight 70.8 kg Intake: IV 550 600 300 Sodium Chloride 0.9% 1, 550 600 300 000 ml @ 70 mls/hr IV . [id number] [facility] Rx#:[id number] Intake, IV Titration 444.662 648.582 Amount ACETAMINOPHEN IV (For NPO 100 ) 1,000 mg In Empty Bag 1 bag @ 400 mls/hr IVPB Q6HR [facility] Rx#:[id number] ACETAMINOPHEN IV (For NPO 100 100 ) 1,000 mg In Empty Bag 1 bag @ 400 mls/hr IVPB Q6HR [facility] Rx#:[id number] Piperacillin-Tazobactam 3 100 100 .375 gm In Sodium Chloride 0.9% 100 ml @ 25 mls/hr IVPB Q8HR [facility] Rx# :[id number] Valproate Sodium 250 mg 100 200 In Sodium Chloride 0.9% 100 ml @ 100 mls/hr IVPB Q6HR [facility] Rx#:[id number] levETIRAcetam IV 1,000 mg 100 100 In Saline 1 100ml.bag @ 400 mls/hr IVPB Q12HR [facility] Rx#:[id number] propofoL 1,000 mg In 44.662 48.582 Empty Bag 1 bag @ 15 MCG/ KG/MIN 7.348 mls/hr IV . [id number] [facility] Rx#:[id number] Tube Feeding 490 490 175 Other 150 90 Output: Urine 835 800 400 Other: Voiding Method Indwelling Catheter Indwelling Catheter Indwelling Catheter - Exam Physical Exam: Revealed 62-year-old white male on any stimuli, intubated mechanically ventilated in no distress. Head: Atraumatic, normocephalic, endotracheal tube and orogastric tube are intact. HEENT:[Neck is supple.] [No neck masses.] [No thyromegaly.] [No JVD.] Patient does have a gag reflex. Chest: [Clear throughout, no crackles, no rhonchi, no wheezes.] Cardiac Exam: [Normal S1 and S2, no S3 gallop, no murmur.] Abdomen: [Soft, nontender, no megaly, no rebound, no guarding, normal bowel sounds.] Neurologic: [Unresponsive, does not respond to verbal or painful stimuli, pupils are 3-4 mm in size, sluggishly reactive, sensory and motor functions could not be assessed. Patient has equal and symmetrical reflexes, no clonus. Positive corneal reflex, positive blinking. Upward gaze is noted Neurological Exam: No clubbing, no edema, no cyanosis. Trachea: Could not - Labs CBC & Chem 7: 11/01/22 06:06 11/01/22 05:36 Labs: Abnormal Lab Results - Last 24 Hours (Table) 10/31/22 10/31/22 10/31/22 Range/Units 13:30 15:48 21:36 WBC (3.8-10.6) k/uL RBC (4.30-5.90) m/uL Hgb (13.0-17.5) gm/dL Hct (39.0-53.0) % Neutrophils # (1.3-7.7) k/uL Lymphocytes # (1.0-4.8) k/uL ABG pO2 (83-108) mmHg ABG Total CO2 (19-24) mmol/L ABG O2 Saturation (94-97) % Chloride (98-107) mmol/L BUN (9-20) mg/dL Glucose (74-99) mg/dL POC Glucose (mg/dL) 123 H 138 H (70-110) mg/dL Calcium (8.4-10.2) mg/dL AST 108 H (17-59) U/L ALT 137 H (4-49) U/L 11/01/22 11/01/22 11/01/22 Range/Units 00:15 05:36 06:06 WBC 11.8 H (3.8-10.6) k/uL RBC 3.93 L (4.30-5.90) m/uL Hgb 12.1 L (13.0-17.5) gm/dL Hct 35.4 L (39.0-53.0) % Neutrophils # 9.9 H (1.3-7.7) k/uL Lymphocytes # 0.8 L (1.0-4.8) k/uL ABG pO2 (83-108) mmHg ABG Total CO2 (19-24) mmol/L ABG O2 Saturation (94-97) % Chloride 112 H (98-107) mmol/L BUN 25 H (9-20) mg/dL Glucose 122 H (74-99) mg/dL POC Glucose (mg/dL) 143 H (70-110) mg/dL Calcium 8.2 L (8.4-10.2) mg/dL AST (17-59) U/L ALT (4-49) U/L 11/01/22 Range/Units 06:25 WBC (3.8-10.6) k/uL RBC (4.30-5.90) m/uL Hgb (13.0-17.5) gm/dL Hct (39.0-53.0) % Neutrophils # (1.3-7.7) k/uL Lymphocytes # (1.0-4.8) k/uL ABG pO2 125 H (83-108) mmHg ABG Total CO2 25 H (19-24) mmol/L ABG O2 Saturation 98.1 H (94-97) % Chloride (98-107) mmol/L BUN (9-20) mg/dL Glucose (74-99) mg/dL POC Glucose (mg/dL) (70-110) mg/dL Calcium (8.4-10.2) mg/dL AST (17-59) U/L ALT (4-49) U/L Microbiology - Last 24 Hours (Table) 10/29/22 17:56 Gram Stain - Final Sputum Sputum Culture - Final Assessment and Plan Assessment: Impression: Cardiac arrest with prolonged CPR and prolonged downtime. Over 25 minutes. 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 Acute seizures secondary to anoxic brain injury Acute kidney injury, resolved Acute liver injury/shock liver, resolved Type 2 diabetes. Acute lactic acidosis secondary to cardiac arrest benign essential hypertension. Possible aspiration pneumonia. Patient is on Zosyn empirically. Recommendation: Continue to monitor in the ICU Continue ventilatory support Continue daily neurochecks. Continue Keppra and valproic acid. Continue to follow up with neurology and cardiology may or may not consider cardiac catheterization. Need to discuss with family overall neurological prognostic picture and I assume that will be addressed by neurology on the case. Consider comfort care measures if neurologically felt that the patient has poor prognostic picture. Continue nutritional support. Continue GI and DVT prophylaxis. Continue to monitor daily labs and address accordingly. Overall prognosis remains poor and guarded Continue antibiotics. Continue Protonix and Lovenox. Patient has not required any pressors. Patient is critically ill. Critical care time is over 30 minutes Time with Patient: Greater than 30
[2022-11-01 16:47] LABS: Glucose,Whole Blood 136 mg/dL (70-110)
[2022-11-01] MEDS: CLEVIDIPINE BUTYRATE 25 MG in EMPTY BAG 1 BAG IV SCH (16:49)
[2022-11-01] MEDS: SODIUM CHLORIDE 0.9% 1,000 ML IV SCH (17:00)
[2022-11-01] MEDS: MIDAZOLAM HCL 50 MG in SODIUM CHLORIDE 0.9% 40 ML IV SCH (18:19)
--- NOTE | 2022-11-01 18:28 | P.PN ---
Subjective Progress Note Date: 11/01/22 Patient initially seen by Dr. [place]in Beach. Please refer to his note for details. Patient is a 62-year-old male with cardiac arrest the downtime reported for 35 minutes. Initial EEG showed burst suppressed pattern. Patient had myoclonic jerks of the face and extremities that had resolved. Patient is currently on Depakote and Keppra. Family is aware of poor prognosis. Per nursing report, patient had some seizure-type activity last night for which he received Ativan 1 mg IV at 10 PM. He has been off propofol 10 mcg/kg/m since then. EEG was performed, while he was on propofol. Patient at present is intubated, minimally sedated with propofol 10 mcg/kg/m. No obvious seizure activity noted. Patient is comatose, with GCS of 3. Objective - Vital Signs Vital signs: Vital Signs Temp 100.6 F H 11/01/22 16:00 Pulse 102 H 11/01/22 17:00 Resp 20 11/01/22 17:00 BP 190/104 11/01/22 17:00 Pulse Ox 97 11/01/22 17:00 FiO2 35 11/01/22 16:00 Intake & Output 10/31/22 11/01/22 11/01/22 18:59 06:59 18:59 Intake Total 1215.562 2077.582 965.366 Output Total 835 800 695 Balance 997.446 8515.582 270.366 Weight 70.8 kg Intake: IV 550 600 550 Sodium Chloride 0.9% 1, 550 600 550 000 ml @ 70 mls/hr IV . [id number] [facility] Rx#:[id number] Intake, IV Titration 444.662 648.582 100.366 Amount ACETAMINOPHEN IV (For NPO 100 ) 1,000 mg In Empty Bag 1 bag @ 400 mls/hr IVPB Q6HR [facility] Rx#:[id number] ACETAMINOPHEN IV (For NPO 100 100 ) 1,000 mg In Empty Bag 1 bag @ 400 mls/hr IVPB Q6HR [facility] Rx#:[id number] Clevidipine Butyrate 25 0.366 mg In Empty Bag 1 bag @ 1 MG/HR 2 mls/hr IV .Q24H [facility] Rx#:[id number] Piperacillin-Tazobactam 3 100 100 .375 gm In Sodium Chloride 0.9% 100 ml @ 25 mls/hr IVPB Q8HR [facility] Rx# :[id number] Valproate Sodium 250 mg 100 200 100 In Sodium Chloride 0.9% 100 ml @ 100 mls/hr IVPB Q6HR [facility] Rx#:[id number] levETIRAcetam IV 1,000 mg 100 100 In Saline 1 100ml.bag @ 400 mls/hr IVPB Q12HR [facility] Rx#:[id number] propofoL 1,000 mg In 44.662 48.582 Empty Bag 1 bag @ 15 MCG/ KG/MIN 7.348 mls/hr IV . [id number] [facility] Rx#:[id number] Tube Feeding 490 490 315 Other 150 90 Output: Urine 835 800 695 Other: Voiding Method Indwelling Catheter Indwelling Catheter Indwelling Catheter - Exam On examination patient is comatose, with GCS of 3. Patient does not respond to painful stimuli. His pupils are clearly reactive to light bilaterally. Oculocephalics are absent. Corneals are absent. Patient has a positive gag and cough reflex when suctioning. Reflexes are absent, plantars are flat. No obvious seizure activity noted. - Labs CBC & Chem 7: 11/02/22 05:28 11/02/22 05:28 Labs: Abnormal Lab Results - Last 24 Hours (Table) 10/31/22 11/01/22 11/01/22 Range/Units 21:36 00:15 05:36 WBC (3.8-10.6) k/uL RBC (4.30-5.90) m/uL Hgb (13.0-17.5) gm/dL Hct (39.0-53.0) % Neutrophils # (1.3-7.7) k/uL Lymphocytes # (1.0-4.8) k/uL ABG pO2 (83-108) mmHg ABG Total CO2 (19-24) mmol/L ABG O2 Saturation (94-97) % Chloride 112 H (98-107) mmol/L BUN 25 H (9-20) mg/dL Glucose 122 H (74-99) mg/dL POC Glucose (mg/dL) 138 H 143 H (70-110) mg/dL Calcium 8.2 L (8.4-10.2) mg/dL 11/01/22 11/01/22 11/01/22 Range/Units 06:06 06:25 13:25 WBC 11.8 H (3.8-10.6) k/uL RBC 3.93 L (4.30-5.90) m/uL Hgb 12.1 L (13.0-17.5) gm/dL Hct 35.4 L (39.0-53.0) % Neutrophils # 9.9 H (1.3-7.7) k/uL Lymphocytes # 0.8 L (1.0-4.8) k/uL ABG pO2 125 H (83-108) mmHg ABG Total CO2 25 H (19-24) mmol/L ABG O2 Saturation 98.1 H (94-97) % Chloride (98-107) mmol/L BUN (9-20) mg/dL Glucose (74-99) mg/dL POC Glucose (mg/dL) 137 H (70-110) mg/dL Calcium (8.4-10.2) mg/dL 11/01/22 Range/Units 16:46 WBC (3.8-10.6) k/uL RBC (4.30-5.90) m/uL Hgb (13.0-17.5) gm/dL Hct (39.0-53.0) % Neutrophils # (1.3-7.7) k/uL Lymphocytes # (1.0-4.8) k/uL ABG pO2 (83-108) mmHg ABG Total CO2 (19-24) mmol/L ABG O2 Saturation (94-97) % Chloride (98-107) mmol/L BUN (9-20) mg/dL Glucose (74-99) mg/dL POC Glucose (mg/dL) 136 H (70-110) mg/dL Calcium (8.4-10.2) mg/dL Microbiology - Last 24 Hours (Table) 10/31/22 13:26 Blood Culture - Preliminary Blood No Growth after 24 hours 10/29/22 17:56 Gram Stain - Final Sputum Sputum Culture - Final Assessment and Plan Assessment: This is a 62-year-old gentleman with had a cardiopulmonary arrest while at work and was down time for a total of possibly 35 minutes. Cardiac arrest with a total downtown about 35 minutes. Patient had reported CPR started immediately. Likely Anoxic brain injury due to above encephalopathy due to prolonged cardiac arrest (has some brainstem function). Patient has passed 72 hours post cardiac arrest, with no significant improvement. Patient continues to be comatose with GCS of 3. Myloclonic seizure (facial and body) due to above--resolved Acute STEMI, inferior wall myocardial infarction Liver shock likely due to cardiac arrest Acute kidney injury likely due to cardiac arrest Diabetes mellitus type 2 Hypertension Plan: Repeat EEG performed today 11/01/2022 was completely suppressed EEG, suggestive of isoelectric EEG. No epileptiform activity was seen. When compared to the EEG from 10/30/2022, the EEG seems to be worse, with complete absence of any bu rsts or any discernible electrocerebral activity. We will stop Depakote, as there is no epileptiform activity seen. Initial EEG performed 10/30/2022 has burst suppression and can be seen in post anoxia. Can be seen in medication induced or status epilepticus but in this situation it appears anoxia. CT head from 10/30/2022 was reviewed, on my review, there is evidence of mild loss of leonardo-white junction, mild cerebral edema visible in the second CT head. Continue Keppra 1gm bid. Dr. Beach also added Valproic acid 250mg every 6 hours since having left eye abnormal jerks concerning for seizure. Repeat AST 108 and ALT 137, both improving. Continue neuro checks We'll defer the rest of the medical management to the ICU and cardiology team Condition is critical. Based upon current neurological examination, EEG findings, the prognosis appears poor. May consider repeating CT head to evaluate for degree of cerebral edema. Discussed with patient's , and patient's brother in detail. All questions were answered. Time with Patient: Greater than 30
[2022-11-01] MEDS: ATORVASTATIN 80 MG TAB PO SCH (20:27)
[2022-11-01 20:31] LABS: Glucose,Whole Blood 102 mg/dL (70-110)
--- NOTE | 2022-11-01 23:03 | CT ---
EXAMINATION TYPE: CT brain wo con CT DLP: 1114.4 mGycm, Automated exposure control for dose reduction was used. DATE OF EXAM: 11/01/2022 10:22 PM COMPARISON: 10/30/2022. CLINICAL INDICATION:Male, 62 years old with history of Follow-up cerebral edema., Follow up edema TECHNIQUE: Brain: Axial CT images of the brain were obtained with coronal and sagittal reformats created and rev iewed. Contrast used: None. Oral contrast used: None. FINDINGS: Brain: Extra-axial spaces: No abnormal extra-axial fluid collections. Ventricular system: New crowding of the basilar cisterns with increased dilation of the ventricles. Cerebral parenchyma: New Diffuse loss of leonardo-white matter differentiation. Cerebellum: New Downward shift of the cerebellar hemispheres and to the foramen magnum. Mass effect: No evidence of midline shift. Intracranial vasculature: Atherosclerotic calcifications of the intracranial vessels. Soft tissues: Normal. Calvarium/osseous structures: No depressed skull fracture. Paranasal sinuses and mastoid air cells: Mild scattered paranasal sinus disease. Visualized orbits: Orbital contents are intact. IMPRESSION: 1. Interval loss of leonardo-white matter differentiation compatible with global hypoxic ischemic injury in the setting of cardiac arrest. 2. Crowding of the basilar cisterns with cerebellar tonsillar and uncal herniation. 3. New hydrocephalus with interval increase in dilation of the lateral ventricles likely secondary t o obstruction from from #1 and #2.
--- NOTE | 2022-11-01 23:28 | EEG ---
ELECTROENCEPHALOGRAM REPORT PREAMBLE: This is a 62-year-old male with cardiac arrest, patient has anoxic brain injury. This is a followup EEG. Patient is comatose. EEG FINDINGS: This is a 21-channel digital EEG recorded with video component, utilizing 10/20 international system with referential and bipolar montages. The recording starts and continues with presence of lack of any discernible electrocerebral activity in bihemispheric region. Photic driving response was not seen. No reactivity to any stimulus was noted. Different stages of sleep were not seen. No epileptiform activity was seen. IMPRESSION: This is a severely abnormal EEG due to lack of presence of any discernible electrocerebral activity. In appropriate clinical setting, this can be consistent with isoelectric EEG, consistent with severe anoxic brain injury. No epileptiform activity was seen. When compared to the EEG from 10/30/2022, the recording has worsened, with lack of presence of any cerebral activity and the burst have now completely resolved. Clinical correlation is strongly recommended. JESS / TOMN: [id number] / [facility] MEDICAL CENTERHubert
[2022-11-02] MEDS: VALPROATE SODIUM 250 MG in SODIUM CHLORIDE 0.9% 100 ML IVPB SCH ×2 (00:18→05:58)
[2022-11-02] MEDS: SODIUM CHLORIDE 3%(HYPERTONIC) 500 ML IV SCH ×2 (00:18→20:22)
[2022-11-02] MEDS: CLEVIDIPINE BUTYRATE 25 MG in EMPTY BAG 1 BAG IV SCH ×4 (00:27→20:07)
[2022-11-02 00:38] LABS: Glucose,Whole Blood 136 mg/dL (70-110)
[2022-11-02] MEDS: INSULIN ASPART (NovoLOG) 100 UNIT/ML VIAL SQ SCH ×6 (01:43→20:26)
[2022-11-02] MEDS: PIPERACILLIN-TAZOBACTAM 3.375 GM in SODIUM CHLORIDE 0.9% 100 ML IVPB SCH ×3 (01:46→17:00)
--- NOTE | 2022-11-02 02:14 | PN ---
PROGRESS NOTE DATE OF SERVICE: 11/01/2022 SUBJECTIVE: This is a 62-year-old gentleman who was admitted with anoxic encephalopathy, is on mechanical intubation, monitored in ICU neurology is following the patient closely. The patient is intubated, multiple consultants following the patient closely. PAST MEDICAL HISTORY: Reviewed. REVIEW OF SYSTEMS: Could not be taken as the patient is mechanically intubated. CURRENT MEDICATIONS: Reviewed include Lipitor, doses and rest of medication noted. PHYSICAL EXAMINATION: VITAL SIGNS: Pulse is 69, blood pressure 157/90, and respirations 20. HEENT: Conjunctivae normal. CARDIOVASCULAR: S1, S2. RESPIRATIONS: A few scattered rhonchi, no crackles. ABDOMEN: Soft. NERVOUS SYSTEM: Sedated. LABORATORY DATA: Reviewed, ABGs noted. ASSESSMENT: 1. Acute ST-segment elevation inferior wall myocardial infarction, cardiac arrest, and possible anoxic brain injury. 2. Acute pulmonary edema. 3. Diabetes mellitus type 2. 4. Hypertension. 5. Multiple medical issues. 6. No code with instructions. RECOMMENDATIONS: This 62-year-old gentleman presented with multiple complex medical issues, we will monitor the patient closely. I would recommend continue the current medications, continue the symptomatic treatment. Otherwise, closely follow with Neurology. Vent settings are noted. Prognosis guarded. Further recommendations to follow. MMODL / IJN: [id number] /
[2022-11-02] MEDS: SODIUM CHLORIDE 0.9% 1,000 ML IV SCH ×2 (03:47→20:10)
[2022-11-02 03:53] LABS: Glucose,Whole Blood 139 mg/dL (70-110)
[2022-11-02] MEDS: INSULIN DETEMIR (LEVEMIR) 100 UNIT/ML SYR SQ SCH ×2 (05:58→22:07)
[2022-11-02 06:07] LABS: ABG Base Excess 0.2 mmol/L; ABG HCO3 24 mmol/L (21-25); ABG PCO2 33 mmHg (35-45); ABG PH 7.47 (7.35-7.45); ABG PO2 98 mmHg (83-108); ABG TCO2 25 mmol/L (19-24); Allen Test Performed? Yes
[2022-11-02 06:11] LABS: ALT 78 U/L (4-49); AST 103 U/L (17-59); African American GFR (CKD) >90 (>60 ml/min/1.73 sqM); Albumin 2.6 g/dL (3.5-5.0); Alkaline Phosphatase 84 U/L (38-126); Anion Gap 7 mmol/L; Blood Urea Nitrogen 22 mg/dL (9-20); Calcium 8.1 mg/dL (8.4-10.2); Carbon Dioxide 24 mmol/L (22-30); Chloride 113 mmol/L (98-107); Glucose 131 mg/dL (74-99); Non-African American GFR(CKD) >90 (>60 ml/min/1.73 sqM); Sodium 144 mmol/L (137-145); Total Bilirubin 0.5 mg/dL (0.2-1.3)
[2022-11-02 06:47] LABS: Basophils % (A) 0 %; Eosinophils % (A) 0 %; HCT 36.8 % (39.0-53.0); HGB 12.8 gm/dL (13.0-17.5); Lymphocytes # (A) 0.8 k/uL (1.0-4.8); Lymphocytes % (A) 8 %; MCH 31.2 pg (25.0-35.0); MCHC 34.7 g/dL (31.0-37.0); Mean Platelet Volume 7.7; Monocytes # (A) 0.7 k/uL (0-1.0); Monocytes % (A) 6 %; Neutrophils # (A) 8.9 k/uL (1.3-7.7); Neutrophils % (A) 84 %; Platelet Count 295 k/uL (150-450); WBC 10.6 k/uL (3.8-10.6)
--- NOTE | 2022-11-02 07:51 | XR ---
EXAMINATION TYPE: XR chest 1V portable DATE OF EXAM: 11/02/2022 COMPARISON: 11/02/2019 HISTORY: Tube placement TECHNIQUE: Single frontal view of the chest is obtained. FINDINGS: Stable endotracheal and orogastric tubes. Mild increased central markings redemonstrated. There is now patchy infiltrate within the right middle lobe not seen on prior exam. No pneumothorax. No sizable pleural effusion. Bilaterally. Cardiac silhouette size is stable and within normal limits. Osseous structures are intact. IMPRESSION: 1. New right-sided patchy areas perihilar infiltrate. 2. Stable left lower lobe infiltrate.
[2022-11-02] MEDS: ENOXAPARIN 40 MG/0.4 ML SYRINGE SQ SCH (08:53)
[2022-11-02] MEDS: PANTOPRAZOLE 40 MG/10 ML VIAL IV SCH (09:02)
[2022-11-02] MEDS: METOPROLOL TARTRATE 50 MG TAB PO SCH ×2 (09:02→22:07)
[2022-11-02] MEDS: CLOPIDOGREL 75 MG TAB PO SCH (09:02)
[2022-11-02] MEDS: ASPIRIN 81 MG PO SCH (09:02)
[2022-11-02] MEDS: CHLORHEXIDINE GLUCONATE 15 ML CUP MUCOUS MEM SCH ×2 (09:03→22:07)
[2022-11-02 09:15] LABS: Glucose,Whole Blood 117 mg/dL (70-110)
[2022-11-02] MEDS: levETIRAcetam IV 1,000 MG in SALINE 1 100ML.BAG IVPB SCH ×2 (09:22→22:07)
[2022-11-02] MEDS: lisinopriL 5 MG TAB PO SCH (11:32)
[2022-11-02 11:54] LABS: Glucose,Whole Blood 143 mg/dL (70-110)
--- NOTE | 2022-11-02 12:40 | P.PN ---
Subjective Progress Note Date: 11/02/22 Principal diagnosis: Cardiac arrest, and anoxic brain injury 62-year-old male patient who presented to the ED with a cardiac arrest. 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 He was witnessed arrest by coworker. CPR was immediately started. The patient was hooked to an AICD and the patient was given 2 shocks. EMS called to the scene, and upon their arrival, the patient was then PA and the patient was given a total of 4 was of epinephrine, 1 dose of amiodarone. He coded for a total of 30 minutes with a short period of time when there was a return returnto his circulation. He also went into ventricular tachycardia/fibrillation and required defibrillation. Upon arrival to the emergency, the patient was coded for another 5 minutes and there was return of spontaneous circulation. I believe the total down time was around 35 minutes. The patient was apparently pulseless of the time of arrival to the emergency department. Subsequently, he regained blood pressure and his most recent blood pressure 190/100. The patient is currently intubated on a mechanical ventilator. EKG showed a inferior wall ST segment elevation myocardial infarction. Cardiology was informed. Cardiac catheterization was declined based on his prolonged downtime. At this point in time, the patient was seen in the emergency. He is on a mechanical ventilator, assist control 14, tidal volume of 450, FiO2 100% and a PEEP of 5. His chest x-ray showing pulmonary edema ET tube is in a good location. Echocardiogram was ordered and it will be done within next few minutes. Arango catheter is in place and the patient has good urine output. The patient is on no sedation. He is somewhat asynchronous a mechanical ventilator, trying to breathe above the vent setting and becoming asynchronous. I recommended to start the patient on propofol. He was given rectal aspirin. He was started on IV heparin. The blood pressure was noted to be elevated. Recommended metoprolol 50 mg twice a day, hydralazine as needed and Lasix. Neurologically impaired. The patient is unresponsive. Pupils are 3 mm in size, sluggishly reactive to light. No other withdrawing to any painful stimulation. His initial troponin set was negative. The B cigars at 6.3 with a hemoglobin 12.7 and a platelet count of 360. Normal cognition profile. Bicarbs at 17 with a BUN of 27 and a creatinine of 1.47. Lactic acid level was at 8.5. Glucose of 471. He is diabetic. 10/30/2022, the patient's is being seen in the intensive care unit, intubated on a mechanical ventilator. Currently on propofol which is running at 25 mcg/kg/m to maintain synchrony with a mechanical ventilator. Neurologically, he has upward gaze, he does have sensation to pain as the patient moves his arms and legs to deep painful stimulation. An accurate motor and sensory evaluation cannot be done. The patient does not follow any commands. No seizure activity has been noted. The patient was seen by neurology yesterday. CAT scan of the brain was done that showed no acute abnormalities. At the same time, the karely ent was seen by neurology and started on IV Keppra empirically. Anoxic encephalopathy is highly suspected because of his prolonged downtime following the cardiac arrest. EEG is to follow today. In terms of respiratory support, the patient remains on a mechanical ventilator. Is on a rate of 20, tidal volume of 450, FiO2 of 50% with a PEEP of 5, and a morning blood gases showed a pH of 7.45 with a pCO2 of 36 and pO2 of 3:30 and this was an FiO2 of 100%, as such, the FiO2 was dropped onto 50%. The chest x-ray from today shows some improvement in the pulmonary edema. There is still some underlying cephalization. No airspace disease or consolidations. EKG was in a good location. The patient is afebrile for now. No significant respiratory secretions. The patient is quite successful mechanical ventilator. Hemodynamically, the patient has a stable blood pressure. No pressors were ut ilized. The patient is currently on IV fluids at 70 mL an hour normal saline. Troponins peaked at 2.6. Echocardiogram was done yesterday and the patient was found to have mildly increased left ventricular wall thickness, ejection fraction on the left was 55%, normal RV, there was some mild inferior wall hypokinesis which goes along with his acute ST segment elevation inferior wall myocardial infarction. The patient remains on IV heparin. PTT is therapeutic. Lactic acid level dropped from 8.5 down to 2.6. Urine drug screen was done and the patient was positive for tricyclics and benzodiazepines. On today's evaluation of 10/31/2022, the patient remains in anoxic encephalopathy, comatose, unresponsive. Positive cough. Positive blink. Positive corneal and gag reflex. Unresponsive to any verbal or painful stimulation. At times, we noticed the he withdraws to deep painful stimulation. No seizure activity has been noted. EEG was done yesterday and it was consistent with diffuse encephalopathy and signs of anoxic encephalopathy. CAT scan of the chest was negative. Neurologic is on the case. The patient remains on Keppra. Meanwhile, the patient remains intubated on a mechanical ventilator. Is on assist-control mode at the rate of 20, tidal volume of 450 with an FiO2 of 40% with PEEP of 5. Blood gas from today shows a pH of 7.42 with a pCO2 of 32 and a pO2 of 133. The chest x-ray from today is showing adequate expansion of both lungs. ET tube is in a good location. There may be some left lower lobe atelectasis. Orogastric tube is also in place. No airspace disease or consolidations. The patient remains on low-dose propofol which is running at 20 mcg/kg/m and this was essentially to maintain synchrony. He was given a sedation holiday yesterday without any signs of neurological recovery. The same will be done today. He is hemodynamically stable in normal sinus rhythm. Is on no pressors. He is maintaining his pressure for now. No cardiac arrhythmias of been noted. He remains on IV heparin. He is on aspirin. He was started on enteral feeding for nutritional support. Echo of the heart was noted yesterday and the patient has no LV dysfunction and the patient had some mild inferior wall hypokinesis. In terms of the rest of the labs done today, the patient has a WBC count of 17.3 with hemoglobin 13.9 and a platelet count of 331. Bicarb is 25, sodium is at 141, potassium level is at 4.9, glucose is 133. The patient is currently receiving enteral feeding in the form of Glucerna at the rate of 75 mL an hour. His blood sugars have been under adequate control and the patient is currently on a sliding scale insulin coverage. I also added Levemir 11 units a day for blood sugar control. Patient was reevaluated today on 11/01/2022, remains in the ICU intubated and mechanically ventilated is now on assist control rate of 20 tidal volume 450 FiO2 40% and PEEP of 5. ABG showed a pO2 of 125 pCO2 35 pH of 7.44 hence FiO2 was cut down to 35%. Patient was off sedation for 24 hours, however he developed seizures and seizure-like activities requiring Ativan, and he is back now on propofol at 10 mcg/kg/m and receiving Ativan intermittently. Although the patient is on Keppra and valproic acid. Receiving Glucerna at 35 mL/h IV fluid 0.9 normal saline at 50 mL/h patient remains on Zosyn empirically. Endotracheal tube was ordered to be adjusted and we will advance the endotracheal tube to see him today. Chest x-ray continues to show stable left sided consolidation and small effusion remains on antibiotics/Zosyn. Remind you patient had an initial presentation of cardiac arrest, he had CPR for good 25 minutes, he received epinephrine 4, he also received amiodarone, and his presentation was presentation of ST elevation myocardial infarction via catheterization was done because of his prolonged down condition and his overall neurological status. Patient is being followed by neurology for his suspected anoxic brain injury with seems to be quite severe but the patient is not brain . Patient remains obviously quite encephalopathic, and he continues to have myoclonic seizures not to mention his other medical problems including inferior wall [place], shock liver, and acute kidney injury likely secondary to his cardiac arrest. His renal injury has resolved and his creatinine is down to 0.83. Elects lites are normal. WBC count is 11.8 hemoglobin 12.1. Liver enzymes have been gradually improving. And his troponin has been trending down since admission Reevaluated today on 11/02/2022, patient remains in the ICU intubated and mechanically ventilated, he is on assist control rate of 20 tidal volume 450 FiO2 35% and PEEP of 5 ABG showed a pO2 of 98 pCO2 33 pH of 7.47. Patient seems to be demonstrating further neurologic deterioration. CT of the brain last night showed a global hypoxic ischemic injury with interval loss of leonardo-white matter differentiation it also showed crowding of the basilar cisterns and cerebellar tonsillar herniation, in addition Hydrocephalus with interval increase in the dictation of the lateral ventricles. This is all consistent with severe ischemic/anoxic brain injury. Clinically the patient is comatose he is not responding to any stimuli. He has upward gaze deviation, he has no corneals, he has no reflexes, and even the gag reflex today is absent obviously were heading into a brain picture, and that's yet to be addressed by neurology on the case. Patient is now off sedation completely, and I believe it would be worthwhile addressing the issue of gift of life and should probably need she had the process if felt to be appropriate by neurology on the case after discussing these findings with the patient's family. Clinically I believe this is a medical futility situation at this point and should initiate the brain protocol even chest x-ray and labs were all reviewed, chest x-ray showed a right sided patchy infiltrate in the perihilar area and stable left lower lobe infiltrate Objective - Vital Signs Vital signs: Vital Signs Temp 97.7 F 11/02/22 12:00 Pulse 74 11/02/22 12:00 Resp 20 11/02/22 12:00 BP 163/89 11/02/22 12:00 Pulse Ox 99 11/02/22 12:00 FiO2 35 11/02/22 12:00 Intake & Output 11/01/22 11/02/22 11/02/22 18:59 06:59 18:59 Intake Total 3833.128 8373.253 1055 Output Total 770 825 830 Balance 398.294 1118.253 225 Weight 70.8 kg Intake: IV 600 600 320 Sodium Chloride 0.9% 1, 600 600 320 000 ml @ 70 mls/hr IV . [id number] MARCELINA Rx#:[id number] Intake, IV Titration 100.366 673.253 325 Amount Clevidipine Butyrate 25 0.366 106.901 mg In Empty Bag 1 bag @ 1 MG/HR 2 mls/hr IV .Q24H MARCELINA Rx#:[id number] Piperacillin-Tazobactam 3 100 75 .375 gm In Sodium Chloride 0.9% 100 ml @ 25 mls/hr IVPB Q8HR MARCELINA Rx# :[id number] Sodium Chloride 3%( 150 150 Hypertonic) 500 ml @ 25 mls/hr IV .Q20H MARCELINA Rx#: [id number] Valproate Sodium 250 mg 100 100 In Sodium Chloride 0.9% 100 ml @ 100 mls/hr IVPB Q6HR MARCELINA Rx#:[id number] levETIRAcetam IV 1,000 mg 100 100 In Saline 1 100ml.bag @ 400 mls/hr IVPB Q12HR MARCELINA Rx#:[id number] propofoL 1,000 mg In 116.352 Empty Bag 1 bag @ 15 MCG/ KG/MIN 7.348 mls/hr IV . [id number] MARCELINA Rx#:[id number] Tube Feeding 395 540 300 Other 60 110 Output: Urine 770 825 830 Other: Voiding Method Indwelling Catheter Indwelling Catheter Indwelling Catheter - Exam Physical Exam: Revealed 62-year-old white male unresponsive to any stimuli, intubated mechanically ventilated in no distress. Head: Atraumatic, normocephalic, endotracheal tube and orogastric tube are intact. HEENT:[Neck is supple.] [No neck masses.] [No thyromegaly.] [No JVD.] Negative gag reflex Chest: [Clear throughout, no crackles, no rhonchi, no wheezes.] Cardiac Exam: [Normal S1 and S2, no S3 gallop, no murmur.] Abdomen: [Soft, nontender, no megaly, no rebound, no guarding, normal bowel sounds.] Neurologic: [Unresponsive, does not respond to verbal or painful stimuli, pupils are 3-4 mm in size, sluggishly reactive, sensory and motor functions could not be assessed. No reflexes reflexes, no clonus. Negative corneal reflex,. Negative gag reflex Upward gaze is noted Extremities: No clubbing, trace of bipedal edema, no cyanosis. Psychiatric: Could not assess - Labs CBC & Chem 7: 11/02/22 05:28 11/02/22 09:13 Labs: Abnormal Lab Results - Last 24 Hours (Table) 11/01/22 11/01/22 11/02/22 Range/Units 13:25 16:46 00:36 RBC (4.30-5.90) m/uL Hgb (13.0-17.5) gm/dL Hct (39.0-53.0) % Neutrophils # (1.3-7.7) k/uL Lymphocytes # (1.0-4.8) k/uL ABG pH (7.35-7.45) ABG pCO2 (35-45) mmHg ABG Total CO2 (19-24) mmol/L ABG O2 Saturation (94-97) % Sodium (137-145) mmol/L Chloride (98-107) mmol/L BUN (9-20) mg/dL Glucose (74-99) mg/dL POC Glucose (mg/dL) 137 H 136 H 136 H (70-110) mg/dL Calcium (8.4-10.2) mg/dL AST (17-59) U/L ALT (4-49) U/L Total Protein (6.3-8.2) g/dL Albumin (3.5-5.0) g/dL 11/02/22 11/02/22 11/02/22 Range/Units 03:50 05:28 05:28 RBC 4.10 L (4.30-5.90) m/uL Hgb 12.8 L (13.0-17.5) gm/dL Hct 36.8 L (39.0-53.0) % Neutrophils # 8.9 H (1.3-7.7) k/uL Lymphocytes # 0.8 L (1.0-4.8) k/uL ABG pH (7.35-7.45) ABG pCO2 (35-45) mmHg ABG Total CO2 (19-24) mmol/L ABG O2 Saturation (94-97) % Sodium (137-145) mmol/L Chloride 113 H (98-107) mmol/L BUN 22 H (9-20) mg/dL Glucose 131 H (74-99) mg/dL POC Glucose (mg/dL) 139 H (70-110) mg/dL Calcium 8.1 L (8.4-10.2) mg/dL AST 103 H (17-59) U/L ALT 78 H (4-49) U/L Total Protein 5.0 L (6.3-8.2) g/dL Albumin 2.6 L (3.5-5.0) g/dL 11/02/22 11/02/22 11/02/22 Range/Units 06:01 09:13 09:13 RBC (4.30-5.90) m/uL Hgb (13.0-17.5) gm/dL Hct (39.0-53.0) % Neutrophils # (1.3-7.7) k/uL Lymphocytes # (1.0-4.8) k/uL ABG pH 7.47 H (7.35-7.45) ABG pCO2 33 L (35-45) mmHg ABG Total CO2 25 H (19-24) mmol/L ABG O2 Saturation 98.0 H (94-97) % Sodium 147 H (137-145) mmol/L Chloride (98-107) mmol/L BUN (9-20) mg/dL Glucose (74-99) mg/dL POC Glucose (mg/dL) 117 H (70-110) mg/dL Calcium (8.4-10.2) mg/dL AST (17-59) U/L ALT (4-49) U/L Total Protein (6.3-8.2) g/dL Albumin (3.5-5.0) g/dL 11/02/22 Range/Units 11:53 RBC (4.30-5.90) m/uL Hgb (13.0-17.5) gm/dL Hct (39.0-53.0) % Neutrophils # (1.3-7.7) k/uL Lymphocytes # (1.0-4.8) k/uL ABG pH (7.35-7.45) ABG pCO2 (35-45) mmHg ABG Total CO2 (19-24) mmol/L ABG O2 Saturation (94-97) % Sodium (137-145) mmol/L Chloride (98-107) mmol/L BUN (9-20) mg/dL Glucose (74-99) mg/dL POC Glucose (mg/dL) 143 H (70-110) mg/dL Calcium (8.4-10.2) mg/dL AST (17-59) U/L ALT (4-49) U/L Total Protein (6.3-8.2) g/dL Albumin (3.5-5.0) g/dL Microbiology - Last 24 Hours (Table) 10/31/22 13:26 Blood Culture - Preliminary Blood No Growth after 24 hours 10/29/22 17:56 Gram Stain - Final Sputum Sputum Culture - Final Assessment and Plan Assessment: Impression: Cardiac arrest with prolonged CPR and prolonged downtime. Over 25 minutes. Acute hypoxic respiratory failure secondary to above Severe anoxic brain injury with anoxic encephalopathy. And considering the clinical deterioration and the findings on the CT of the brain, I believe the patient is almost brain Acute seizures secondary to anoxic brain injury Acute kidney injury, resolved Acute liver injury/shock liver, resolved Type 2 diabetes. Acute lactic acidosis secondary to cardiac arrest benign essential hypertension. Possible aspiration pneumonia. Patient is on Zosyn empirically. Recommendation: Neurology to evaluate and address brain protocol. Family to be approached about initiating gift of life issue and address that with the coordinator. Continue to monitor in the ICU Continue ventilatory support Continue Keppra and valproic acid. Continue nutritional support. Continue GI and DVT prophylaxis. Medical condition is extremely poor and this point. Continue empiric antibiotics Continue Protonix and Lovenox. Patient remains extremely, critically ill and condition is futile at this point. Critical care time is over 30 minutes Time with Patient: Greater than 30
--- NOTE | 2022-11-02 14:34 | P.PN ---
Subjective Progress Note Date: 11/02/22 11/02/2022: Patient was seen for a follow-up. Patient clinically worse. His pupils are minimally reactive to light sluggishly. No seizure-like activity. Patient currently on Precedex 2 mg per hour. He is off propofol since 5 AM. He has not received any Ativan. Patient underwent computed tomography scan of head performed last night, which revealed severe generalized cerebral edema, with effacement of the perimesencephalic cistern, with cerebral herniation. Also development of moderate hydrocephalus. Patient was started on 3% hypertonic saline at 25 mL per hour. No seizure-like activity noticed. 11/01/2022: Patient initially seen by Dr. [place]. Please refer to his note for details. Patient is a 62-year-old male with cardiac arrest the downtime reported for 35 minutes. Initial EEG showed burst suppressed pattern. Patient had myoclonic jerks of the face and extremities that had resolved. Patient is currently on Depakote and Keppra. Family is aware of poor prognosis. Per nursing report, patient had some seizure-type activity last night for which he received Ativan 1 mg IV at 10 PM. He has been off propofol 10 mcg/kg/m since then. EEG was performed, while he was on propofol. Patient at present is intubated, minimally sedated with propofol 10 mcg/kg/m. No obvious seizure activity noted. Patient is comatose, with GCS of 3. Objective - Vital Signs Vital signs: Vital Signs Temp 97.7 F 11/02/22 12:00 Pulse 74 11/02/22 12:00 Resp 20 11/02/22 12:00 BP 163/89 11/02/22 12:00 Pulse Ox 99 11/02/22 12:00 FiO2 35 11/02/22 12:00 Intake & Output 11/01/22 11/02/22 11/02/22 18:59 06:59 18:59 Intake Total 5641.837 8653.253 1055 Output Total 770 825 830 Balance 276.791 7858.253 225 Weight 70.8 kg Intake: IV 600 600 320 Sodium Chloride 0.9% 1, 600 600 320 000 ml @ 70 mls/hr IV . [id number] [facility]ARCELINA Rx#:[id number] Intake, IV Titration 100.366 673.253 325 Amount Clevidipine Butyrate 25 0.366 106.901 mg In Empty Bag 1 bag @ 1 MG/HR 2 mls/hr IV .Q24H MARCELINA Rx#:[id number] Piperacillin-Tazobactam 3 100 75 .375 gm In Sodium Chloride 0.9% 100 ml @ 25 mls/hr IVPB Q8HR MARC[facility] Rx# :[id number] Sodium Chloride 3%( 150 150 Hypertonic) 500 ml @ 25 mls/hr IV .Q20H MARCELINA Rx#: [id number] Valproate Sodium 250 mg 100 100 In Sodium Chloride 0.9% 100 ml @ 100 mls/hr IVPB Q6HR [facility] Rx#:[id number] levETIRAcetam IV 1,000 mg 100 100 In Saline 1 100ml.bag @ 400 mls/hr IVPB Q12HR MARCELINA Rx#:[id number] propofoL 1,000 mg In 116.352 Empty Bag 1 bag @ 15 MCG/ KG/MIN 7.348 mls/hr IV . [id number] MARCELINA Rx#:[id number] Tube Feeding 395 540 300 Other 60 110 Output: Urine 770 825 830 Other: Voiding Method Indwelling Catheter Indwelling Catheter Indwelling Catheter - Exam On examination patient is comatose, with GCS of 3. Patient does not respond to painful stimuli. His pupils are very sluggishly reacting to light, and are equal in size. Oculocephalics are absent. Corneals are absent. Patient has a negative gag, but weakly positive cough as per nurse when deep suctioning. Reflexes are absent, plantars are flat. No obvious seizure activity noted. - Labs CBC & Chem 7: 11/02/22 05:28 11/02/22 09:13 Labs: Abnormal Lab Results - Last 24 Hours (Table) 11/01/22 11/01/22 11/02/22 Range/Units 13:25 16:46 00:36 RBC (4.30-5.90) m/uL Hgb (13.0-17.5) gm/dL Hct (39.0-53.0) % Neutrophils # (1.3-7.7) k/uL Lymphocytes # (1.0-4.8) k/uL ABG pH (7.35-7.45) ABG pCO2 (35-45) mmHg ABG Total CO2 (19-24) mmol/L ABG O2 Saturation (94-97) % Sodium (137-145) mmol/L Chloride (98-107) mmol/L BUN (9-20) mg/dL Glucose (74-99) mg/dL POC Glucose (mg/dL) 137 H 136 H 136 H (70-110) mg/dL Calcium (8.4-10.2) mg/dL AST (17-59) U/L ALT (4-49) U/L Total Protein (6.3-8.2) g/dL Albumin (3.5-5.0) g/dL 11/02/22 11/02/22 11/02/22 Range/Units 03:50 05:28 05:28 RBC 4.10 L (4.30-5.90) m/uL Hgb 12.8 L (13.0-17.5) gm/dL Hct 36.8 L (39.0-53.0) % Neutrophils # 8.9 H (1.3-7.7) k/uL Lymphocytes # 0.8 L (1.0-4.8) k/uL ABG pH (7.35-7.45) ABG pCO2 (35-45) mmHg ABG Total CO2 (19-24) mmol/L ABG O2 Saturation (94-97) % Sodium (137-145) mmol/L Chloride 113 H (98-107) mmol/L BUN 22 H (9-20) mg/dL Glucose 131 H (74-99) mg/dL POC Glucose (mg/dL) 139 H (70-110) mg/dL Calcium 8.1 L (8.4-10.2) mg/dL AST 103 H (17-59) U/L ALT 78 H (4-49) U/L Total Protein 5.0 L (6.3-8.2) g/dL Albumin 2.6 L (3.5-5.0) g/dL 11/02/22 11/02/22 11/02/22 Range/Units 06:01 09:13 09:13 RBC (4.30-5.90) m/uL Hgb (13.0-17.5) gm/dL Hct (39.0-53.0) % Neutrophils # (1.3-7.7) k/uL Lymphocytes # (1.0-4.8) k/uL ABG pH 7.47 H (7.35-7.45) ABG pCO2 33 L (35-45) mmHg ABG Total CO2 25 H (19-24) mmol/L ABG O2 Saturation 98.0 H (94-97) % Sodium 147 H (137-145) mmol/L Chloride (98-107) mmol/L BUN (9-20) mg/dL Glucose (74-99) mg/dL POC Glucose (mg/dL) 117 H (70-110) mg/dL Calcium (8.4-10.2) mg/dL AST (17-59) U/L ALT (4-49) U/L Total Protein (6.3-8.2) g/dL Albumin (3.5-5.0) g/dL 11/02/22 Range/Units 11:53 RBC (4.30-5.90) m/uL Hgb (13.0-17.5) gm/dL Hct (39.0-53.0) % Neutrophils # (1.3-7.7) k/uL Lymphocytes # (1.0-4.8) k/uL ABG pH (7.35-7.45) ABG pCO2 (35-45) mmHg ABG Total CO2 (19-24) mmol/L ABG O2 Saturation (94-97) % Sodium (137-145) mmol/L Chloride (98-107) mmol/L BUN (9-20) mg/dL Glucose (74-99) mg/dL POC Glucose (mg/dL) 143 H (70-110) mg/dL Calcium (8.4-10.2) mg/dL AST (17-59) U/L ALT (4-49) U/L Total Protein (6.3-8.2) g/dL Albumin (3.5-5.0) g/dL Microbiology - Last 24 Hours (Table) 10/31/22 13:26 Blood Culture - Preliminary Blood No Growth after 24 hours 10/29/22 17:56 Gram Stain - Final Sputum Sputum Culture - Final Assessment and Plan Assessment: This is a 62-year-old gentleman with had a cardiopulmonary arrest while at work and was down time for a total of possibly 35 minutes. Severe anoxic brain injury with anoxic encephalopathy, computed tomography scan showing severe generalized cerebral edema with mass effect and cerebral herniation. Presence of new onset hydrocephalus due to above. Cardiac arrest with a total downtown about 35 minutes. Patient had reported CPR started immediately. Myloclonic seizure (facial and body) due to above--resolved Acute STEMI, inferior wall myocardial infarction Liver shock likely due to cardiac arrest Acute kidney injury likely due to cardiac arrest Diabetes mellitus type 2 Hypertension Plan: Computed tomography scan of head 11/01/2022 revealed interval loss of leonardo-white matter differentiation, compatible with global hypoxic ischemic injury in the setting of cardiac arrest. Crowding of the basilar cisterns with cerebral tonsillar and uncal herniation. New hydrocephalus with interval increase in dilation of the lateral ventricles, likely secondary to #1 and #2. I personally reviewed CT head, agree with the findings. Based upon the patient's clinical condition, EEG findings and computed tomography scan, patient is impending brain . He has minimal brainstem reflexes present. Discussed with patient's and patient's daughter in detail, reviewed with them about patient's computed tomography scan of the head films on the computer. Informed them about nil prognosis. Repeat EEG performed today 11/01/2022 was completely suppressed EEG, suggestive of isoelectric EEG. No epileptiform activity was seen. When compared to the EEG from 10/30/2022, the EEG seems to be worse, with complete absence of any bur sts or any discernible electrocerebral activity. We will stop Depakote, as there is no epileptiform activity seen. Discontinue Keppra. Repeat AST 108 and ALT 137, both improving. We'll defer the rest of the medical management to the ICU and cardiology team Condition is very critical and prognosis is dismal. Discussed with patient's , and patient's daughter in detail. All questions were answered.
[2022-11-02 17:20] LABS: Glucose,Whole Blood 122 mg/dL (70-110)
[2022-11-02 18:08] LABS: Lipase 75 U/L (23-300); Sodium 146 mmol/L (137-145)
[2022-11-02 19:17] LABS: Basophils % (A) 0 %; Eosinophils % (A) 0 %; HCT 37.4 % (39.0-53.0); HGB 12.3 gm/dL (13.0-17.5); Lymphocytes # (A) 0.6 k/uL (1.0-4.8); Lymphocytes % (A) 7 %; MCHC 32.9 g/dL (31.0-37.0); MCV 91.2 fL (80.0-100.0); Mean Platelet Volume 7.1; Monocytes # (A) 0.5 k/uL (0-1.0); Monocytes % (A) 6 %; Neutrophils # (A) 7.9 k/uL (1.3-7.7); Neutrophils % (A) 86 %; Platelet Count 344 k/uL (150-450); RDW 12.7 % (11.5-15.5); WBC 9.2 k/uL (3.8-10.6)
[2022-11-02 19:32] LABS: ALT 67 U/L (4-49); AST 95 U/L (17-59); African American GFR (CKD) >90 (>60 ml/min/1.73 sqM); Albumin 2.5 g/dL (3.5-5.0); Alkaline Phosphatase 86 U/L (38-126); Amylase 71 U/L (30-110); Anion Gap 5 mmol/L; Bilirubin, Delta 0.3 mg/dL (0.0-0.2); Blood Urea Nitrogen 21 mg/dL (9-20); Carbon Dioxide 25 mmol/L (22-30); Chloride 117 mmol/L (98-107); Glucose 148 mg/dL (74-99); Magnesium 2.1 mg/dL (1.6-2.3); Non-African American GFR(CKD) >90 (>60 ml/min/1.73 sqM); Phosphorus 3.9 mg/dL (2.5-4.5); Sodium 147 mmol/L (137-145); Total Bilirubin 0.3 mg/dL (0.2-1.3); Total Protein 4.8 g/dL (6.3-8.2)
[2022-11-02 20:21] LABS: Glucose,Whole Blood 128 mg/dL (70-110)
[2022-11-02 20:24] LABS: ABG Base Excess 0.9 mmol/L; ABG HCO3 24 mmol/L (21-25); ABG Oxygen Saturation 99.2 % (94-97); ABG PCO2 28 mmHg (35-45); ABG PH 7.53 (7.35-7.45); ABG PO2 >400 mmHg (83-108); ABG TCO2 24 mmol/L (19-24); Allen Test Performed? Yes
[2022-11-02] MEDS ORDERED: IPRATROPIUM-ALBUTEROL 3 ML NEB INHALATION PRN (21:03)
[2022-11-02 21:14] LABS: ABG Base Excess 0.8 mmol/L; ABG HCO3 24 mmol/L (21-25); ABG Oxygen Saturation 98.6 % (94-97); ABG PCO2 30 mmHg (35-45); ABG PH 7.51 (7.35-7.45); ABG PO2 112 mmHg (83-108); ABG TCO2 25 mmol/L (19-24); Allen Test Performed? Yes
[2022-11-02] MEDS: ATORVASTATIN 80 MG TAB PO SCH (22:07)
--- NOTE | 2022-11-02 22:09 | PN ---
PROGRESS NOTE SUBJECTIVE: This 62-year-old gentleman was admitted to hospital with acute inferior wall myocardial infarction and cardiorespiratory arrest, has had hypoxic brain injury. Remains in sinus rhythm, intubated on vent without any meaningful response. CT scan of the brain has showed evidence of herniation and new hydrocephalus. OBJECTIVE: VITAL SIGNS: Heart rate is 70 beats per minute, blood pressure is 133/70, and respiratory rate is 18. CHEST: Reveals good air entry bilaterally. HEART: First and second heart sounds, no gallop. EXTREMITIES: Did not reveal any edema. ASSESSMENT AND PLAN: Acute inferior wall myocardial infarction, cardiac arrest with hypoxic brain injury. PLAN: The patient will continue with medications. Prognosis is poor. MMODL / IJN: [id number] /
[2022-11-02] MEDS: IPRATROPIUM 0.5 MG/2.5 ML NEBU INHALATION PRN (23:51)
[2022-11-02] MEDS: ALBUTEROL NEBULIZED 2.5 MG/3 ML INHALATION PRN (23:51)
[2022-11-03 00:17] LABS: Glucose,Whole Blood 138 mg/dL (70-110)
[2022-11-03] MEDS: INSULIN ASPART (NovoLOG) 100 UNIT/ML VIAL SQ SCH ×7 (00:19→23:50)
[2022-11-03] MEDS: PIPERACILLIN-TAZOBACTAM 3.375 GM in SODIUM CHLORIDE 0.9% 100 ML IVPB SCH ×3 (00:52→16:59)
[2022-11-03 03:11] LABS: ABG Base Excess -0.7 mmol/L; ABG HCO3 23 mmol/L (21-25); ABG PCO2 34 mmHg (35-45); ABG PH 7.44 (7.35-7.45); ABG PO2 165 mmHg (83-108); ABG TCO2 24 mmol/L (19-24); Allen Test Performed? Yes
[2022-11-03 03:12] LABS: ABG Oxygen Saturation 98.5 % (94-97)
[2022-11-03] MEDS ORDERED: SODIUM CHLORIDE 0.9% 1,000 ML IV ONE (03:15)
[2022-11-03 03:18] LABS: Basophils % (A) 0 %; Eosinophils % (A) 0 %; HCT 28.4 % (39.0-53.0); Lymphocytes # (A) 0.5 k/uL (1.0-4.8); Lymphocytes % (A) 7 %; MCH 30.1 pg (25.0-35.0); MCHC 32.8 g/dL (31.0-37.0); MCV 91.8 fL (80.0-100.0); Mean Platelet Volume 7.5; Monocytes # (A) 0.4 k/uL (0-1.0); Monocytes % (A) 7 %; Neutrophils # (A) 5.1 k/uL (1.3-7.7); Neutrophils % (A) 82 %; Platelet Count 266 k/uL (150-450); RBC 3.09 m/uL (4.30-5.90); RDW 13.1 % (11.5-15.5); WBC 6.2 k/uL (3.8-10.6)
[2022-11-03 03:26] LABS: Appearance,Urine Clear (Clear); Bilirubin,Urine Negative (Negative); Blood,Urine Moderate (Negative); Color,Urine Yellow; Glucose,Urine (UA) 4+ (Negative); Ketones,Urine 1+ (Negative); Leukocyte Esterase,Urine Negative (Negative); Mucus,Urine Rare /hpf; Nitrite,Urine Negative (Negative); PH, Urine 5.5 (5.0-8.0); Protein,Urine Negative (Negative); RBC,Urine 3 /hpf (0-5); Urobilinogen,Urine <2.0 mg/dL (<2.0); WBC,Urine 2 /hpf (0-5)
[2022-11-03 03:30] LABS: Specific Gravity,Urine 1.046 (1.001-1.035)
[2022-11-03 03:31] LABS: ALT 46 U/L (4-49); AST 68 U/L (17-59); African American GFR (CKD) >90 (>60 ml/min/1.73 sqM); Albumin 1.8 g/dL (3.5-5.0); Alkaline Phosphatase 61 U/L (38-126); Anion Gap 3 mmol/L; Blood Urea Nitrogen 22 mg/dL (9-20); Calcium 7.2 mg/dL (8.4-10.2); Carbon Dioxide 23 mmol/L (22-30); Chloride 123 mmol/L (98-107); Glucose 159 mg/dL (74-99); Lipase 68 U/L (23-300); Magnesium 2.1 mg/dL (1.6-2.3); Non-African American GFR(CKD) >90 (>60 ml/min/1.73 sqM); Phosphorus 4.2 mg/dL (2.5-4.5); Potassium 3.7 mmol/L (3.5-5.1); Sodium 149 mmol/L (137-145); Total Bilirubin 0.1 mg/dL (0.2-1.3); Total Protein 3.7 g/dL (6.3-8.2)
[2022-11-03 03:32] LABS: Partial Thromboplastin Time 27.3 sec (22.0-30.0); Prothrombin Time 10.2 sec (9.0-12.0)
[2022-11-03 03:34] LABS: HGB 9.3 gm/dL (13.0-17.5)
[2022-11-03 04:44] LABS: Glucose,Whole Blood 165 mg/dL (70-110)
[2022-11-03 05:01] LABS: Basophils % (A) 0 %; Eosinophils % (A) 1 %; HCT 27.1 % (39.0-53.0); HGB 9.4 gm/dL (13.0-17.5); Lymphocytes # (A) 0.5 k/uL (1.0-4.8); Lymphocytes % (A) 9 %; MCH 31.7 pg (25.0-35.0); MCHC 34.6 g/dL (31.0-37.0); MCV 91.8 fL (80.0-100.0); Mean Platelet Volume 7.6; Monocytes # (A) 0.4 k/uL (0-1.0); Monocytes % (A) 8 %; Neutrophils # (A) 4.3 k/uL (1.3-7.7); Neutrophils % (A) 81 %; Platelet Count 252 k/uL (150-450); RBC 2.95 m/uL (4.30-5.90); RDW 12.7 % (11.5-15.5); WBC 5.4 k/uL (3.8-10.6)
[2022-11-03] MEDS: ALBUTEROL NEBULIZED 2.5 MG/3 ML INHALATION PRN (06:01)
[2022-11-03] MEDS: IPRATROPIUM 0.5 MG/2.5 ML NEBU INHALATION PRN (06:01)
[2022-11-03] MEDS: SODIUM CHLORIDE 0.9% 1,000 ML IV SCH (06:11)
--- NOTE | 2022-11-03 06:16 | PN ---
PROGRESS NOTE DATE OF SERVICE: 11/02/2022 SUBJECTIVE: This is a 62-year-old gentleman who was admitted with anoxic encephalopathy, is on mechanical ventilation. The patient had a prolonged cardiac arrest secondary to myocardial infarction. The patient is unresponsive. Most recent CT scan of the brain shows hypoxemic injury as well as some cerebellar tonsillar uncal herniation and other abnormal findings. Multiple consultants are following the patient closely. The patient is currently no code with instructions. PAST MEDICAL HISTORY: Reviewed. REVIEW OF SYSTEMS: Could not be taken. CURRENT MEDICATIONS: Reviewed include Keppra and rest of the medication and doses are reviewed. PHYSICAL EXAMINATION: VITAL SIGNS: Pulse 66, blood pressure 130/70, respirations 20. HEENT: Conjunctivae normal. NECK: No JVD. CARDIOVASCULAR: S1, S2. RESPIRATIONS: Breath sounds diminished at the bases. Scattered rhonchi and crackles. ABDOMEN: Soft. NERVOUS SYSTEM: Unresponsive. LABORATORY DATA: Reviewed. ASSESSMENT: 1. Acute ST-segment elevation inferior wall myocardial infarction, cardiac arrest, and possible anoxic brain injury. 2. Possible cerebral edema and herniation. 3. Acute pulmonary edema. 4. Diabetes mellitus, type 2. 5. Hypertension. 6. Multiple medical issues. 7. No code with instructions. RECOMMENDATIONS AND DISCUSSION: Recommend to continue current medications, continue symptomatic treatment. Continue with current medications including antiplatelet agents, empiric antibiotics. Closely follow with multiple consultants. The patient has also received hypertonic saline for possible cerebral edema. Repeat labs. Again, prognosis extremely guarded because of multiple complex medical issues and further recommendations to follow. Discussed with staff. JESS / AMAYA: [id number] /
[2022-11-03] MEDS: INSULIN DETEMIR (LEVEMIR) 100 UNIT/ML SYR SQ SCH ×2 (07:45→21:07)
[2022-11-03 08:11] LABS: Glucose,Whole Blood 151 mg/dL (70-110)
[2022-11-03] MEDS ORDERED: IPRATROPIUM-ALBUTEROL 3 ML NEB INHALATION PRN (08:14)
[2022-11-03] MEDS ORDERED: SODIUM CHLORIDE 3%(HYPERTONIC) 500 ML IV SCH (08:15)
[2022-11-03] MEDS: CHLORHEXIDINE GLUCONATE 15 ML CUP MUCOUS MEM SCH ×2 (08:15→20:52)
[2022-11-03] MEDS: levETIRAcetam IV 1,000 MG in SALINE 1 100ML.BAG IVPB SCH ×2 (08:15→21:07)
[2022-11-03] MEDS: ASPIRIN 81 MG PO SCH (08:15)
[2022-11-03] MEDS: PANTOPRAZOLE 40 MG/10 ML VIAL IV SCH (08:15)
[2022-11-03] MEDS: CLOPIDOGREL 75 MG TAB PO SCH (08:15)
[2022-11-03] MEDS: ENOXAPARIN 40 MG/0.4 ML SYRINGE SQ SCH (08:15)
--- NOTE | 2022-11-03 08:19 | XR ---
EXAMINATION TYPE: XR chest 1V portable DATE OF EXAM: 11/03/2022 COMPARISON: 11/02/2022 HISTORY: Tube placement TECHNIQUE: Single frontal view of the chest is obtained. FINDINGS: There is marked interval improvement in bilateral consolidation with persistent density at the left lung base. No sizable pleural effusion or pneumothorax. ET and NG tubes stable. Hypertrophi c changes of the spine. Heart size normal. No pneumothorax. IMPRESSION: 1. Near complete resolution of right perihilar infiltrate. 2. Interval improvement of left lower lobe infiltrate.
[2022-11-03] MEDS: METOPROLOL TARTRATE 50 MG TAB PO SCH (09:38)
[2022-11-03 10:55] LABS: Glucose,Whole Blood 173 mg/dL (70-110)
[2022-11-03 11:16] LABS: ABG Base Excess -0.8 mmol/L; ABG HCO3 24 mmol/L (21-25); ABG PCO2 40 mmHg (35-45); ABG PH 7.39 (7.35-7.45); ABG PO2 138 mmHg (83-108); ABG TCO2 25 mmol/L (19-24)
[2022-11-03 11:17] LABS: INR 0.9 (<1.2); Partial Thromboplastin Time 27.2 sec (22.0-30.0); Prothrombin Time 9.8 sec (9.0-12.0)
[2022-11-03 11:19] LABS: Allen Test Performed? no
[2022-11-03 11:35] LABS: ALT 49 U/L (4-49); AST 75 U/L (17-59); African American GFR (CKD) >90 (>60 ml/min/1.73 sqM); Albumin 1.9 g/dL (3.5-5.0); Alkaline Phosphatase 64 U/L (38-126); Anion Gap 3 mmol/L; Blood Urea Nitrogen 24 mg/dL (9-20); Calcium 7.2 mg/dL (8.4-10.2); Carbon Dioxide 24 mmol/L (22-30); Chloride 125 mmol/L (98-107); Glucose 165 mg/dL (74-99); Lipase 126 U/L (23-300); Magnesium 2.3 mg/dL (1.6-2.3); Non-African American GFR(CKD) >90 (>60 ml/min/1.73 sqM); Phosphorus 4.3 mg/dL (2.5-4.5); Potassium 3.8 mmol/L (3.5-5.1); Sodium 152 mmol/L (137-145); Total Bilirubin <0.1 mg/dL (0.2-1.3); Total Protein 3.9 g/dL (6.3-8.2)
[2022-11-03] MEDS ORDERED: IPRATROPIUM-ALBUTEROL 3 ML NEB INHALATION SCH (12:00)
--- NOTE | 2022-11-03 12:05 | P.PN ---
Subjective Progress Note Date: 11/03/22 Principal diagnosis: Cardiac arrest, and anoxic brain injury 62-year-old male patient who presented to the ED with a cardiac arrest. 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 He was witnessed arrest by coworker. CPR was immediately started. The patient was hooked to an AICD and the patient was given 2 shocks. EMS called to the scene, and upon their arrival, the patient was then PA and the patient was given a total of 4 was of epinephrine, 1 dose of amiodarone. He coded for a total of 30 minutes with a short period of time when there was a return returnto his circulation. He also went into ventricular tachycardia/fibrillation and required defibrillation. Upon arrival to the emergency, the patient was coded for another 5 minutes and there was return of spontaneous circulation. I believe the total down time was around 35 minutes. The patient was apparently pulseless of the time of arrival to the emergency department. Subsequently, he regained blood pressure and his most recent blood pressure 190/100. The patient is currently intubated on a mechanical ventilator. EKG showed a inferior wall ST segment elevation myocardial infarction. Cardiology was informed. Cardiac catheterization was declined based on his prolonged downtime. At this point in time, the patient was seen in the emergency. He is on a mechanical ventilator, assist control 14, tidal volume of 450, FiO2 100% and a PEEP of 5. His chest x-ray showing pulmonary edema ET tube is in a good location. Echocardiogram was ordered and it will be done within next few minutes. Arango catheter is in place and the patient has good urine output. The patient is on no sedation. He is somewhat asynchronous a mechanical ventilator, trying to breathe above the vent setting and becoming asynchronous. I recommended to start the patient on propofol. He was given rectal aspirin. He was started on IV heparin. The blood pressure was noted to be elevated. Recommended metoprolol 50 mg twice a day, hydralazine as needed and Lasix. Neurologically impaired. The patient is unresponsive. Pupils are 3 mm in size, sluggishly reactive to light. No other withdrawing to any painful stimulation. His initial troponin set was negative. The B cigars at 6.3 with a hemoglobin 12.7 and a platelet count of 360. Normal cognition profile. Bicarbs at 17 with a BUN of 27 and a creatinine of 1.47. Lactic acid level was at 8.5. Glucose of 471. He is diabetic. 10/30/2022, the patient's is being seen in the intensive care unit, intubated on a mechanical ventilator. Currently on propofol which is running at 25 mcg/kg/m to maintain synchrony with a mechanical ventilator. Neurologically, he has upward gaze, he does have sensation to pain as the patient moves his arms and legs to deep painful stimulation. An accurate motor and sensory evaluation cannot be done. The patient does not follow any commands. No seizure activity has been noted. The patient was seen by neurology yesterday. CAT scan of the brain was done that showed no acute abnormalities. At the same time, the karely ent was seen by neurology and started on IV Keppra empirically. Anoxic encephalopathy is highly suspected because of his prolonged downtime following the cardiac arrest. EEG is to follow today. In terms of respiratory support, the patient remains on a mechanical ventilator. Is on a rate of 20, tidal volume of 450, FiO2 of 50% with a PEEP of 5, and a morning blood gases showed a pH of 7.45 with a pCO2 of 36 and pO2 of 3:30 and this was an FiO2 of 100%, as such, the FiO2 was dropped onto 50%. The chest x-ray from today shows some improvement in the pulmonary edema. There is still some underlying cephalization. No airspace disease or consolidations. EKG was in a good location. The patient is afebrile for now. No significant respiratory secretions. The patient is quite successful mechanical ventilator. Hemodynamically, the patient has a stable blood pressure. No pressors were ut ilized. The patient is currently on IV fluids at 70 mL an hour normal saline. Troponins peaked at 2.6. Echocardiogram was done yesterday and the patient was found to have mildly increased left ventricular wall thickness, ejection fraction on the left was 55%, normal RV, there was some mild inferior wall hypokinesis which goes along with his acute ST segment elevation inferior wall myocardial infarction. The patient remains on IV heparin. PTT is therapeutic. Lactic acid level dropped from 8.5 down to 2.6. Urine drug screen was done and the patient was positive for tricyclics and benzodiazepines. On today's evaluation of 10/31/2022, the patient remains in anoxic encephalopathy, comatose, unresponsive. Positive cough. Positive blink. Positive corneal and gag reflex. Unresponsive to any verbal or painful stimulation. At times, we noticed the he withdraws to deep painful stimulation. No seizure activity has been noted. EEG was done yesterday and it was consistent with diffuse encephalopathy and signs of anoxic encephalopathy. CAT scan of the chest was negative. Neurologic is on the case. The patient remains on Keppra. Meanwhile, the patient remains intubated on a mechanical ventilator. Is on assist-control mode at the rate of 20, tidal volume of 450 with an FiO2 of 40% with PEEP of 5. Blood gas from today shows a pH of 7.42 with a pCO2 of 32 and a pO2 of 133. The chest x-ray from today is showing adequate expansion of both lungs. ET tube is in a good location. There may be some left lower lobe atelectasis. Orogastric tube is also in place. No airspace disease or consolidations. The patient remains on low-dose propofol which is running at 20 mcg/kg/m and this was essentially to maintain synchrony. He was given a sedation holiday yesterday without any signs of neurological recovery. The same will be done today. He is hemodynamically stable in normal sinus rhythm. Is on no pressors. He is maintaining his pressure for now. No cardiac arrhythmias of been noted. He remains on IV heparin. He is on aspirin. He was started on enteral feeding for nutritional support. Echo of the heart was noted yesterday and the patient has no LV dysfunction and the patient had some mild inferior wall hypokinesis. In terms of the rest of the labs done today, the patient has a WBC count of 17.3 with hemoglobin 13.9 and a platelet count of 331. Bicarb is 25, sodium is at 141, potassium level is at 4.9, glucose is 133. The patient is currently receiving enteral feeding in the form of Glucerna at the rate of 75 mL an hour. His blood sugars have been under adequate control and the patient is currently on a sliding scale insulin coverage. I also added Levemir 11 units a day for blood sugar control. Patient was reevaluated today on 11/01/2022, remains in the ICU intubated and mechanically ventilated is now on assist control rate of 20 tidal volume 450 FiO2 40% and PEEP of 5. ABG showed a pO2 of 125 pCO2 35 pH of 7.44 hence FiO2 was cut down to 35%. Patient was off sedation for 24 hours, however he developed seizures and seizure-like activities requiring Ativan, and he is back now on propofol at 10 mcg/kg/m and receiving Ativan intermittently. Although the patient is on Keppra and valproic acid. Receiving Glucerna at 35 mL/h IV fluid 0.9 normal saline at 50 mL/h patient remains on Zosyn empirically. Endotracheal tube was ordered to be adjusted and we will advance the endotracheal tube to see him today. Chest x-ray continues to show stable left sided consolidation and small effusion remains on antibiotics/Zosyn. Remind you patient had an initial presentation of cardiac arrest, he had CPR for good 25 minutes, he received epinephrine 4, he also received amiodarone, and his presentation was presentation of ST elevation myocardial infarction via catheterization was done because of his prolonged down condition and his overall neurological status. Patient is being followed by neurology for his suspected anoxic brain injury with seems to be quite severe but the patient is not brain . Patient remains obviously quite encephalopathic, and he continues to have myoclonic seizures not to mention his other medical problems including inferior wall SC, shock liver, and acute kidney injury likely secondary to his cardiac arrest. His renal injury has resolved and his creatinine is down to 0.83. Elects lites are normal. WBC count is 11.8 hemoglobin 12.1. Liver enzymes have been gradually improving. And his troponin has been trending down since admission Reevaluated today on 11/02/2022, patient remains in the ICU intubated and mechanically ventilated, he is on assist control rate of 20 tidal volume 450 FiO2 35% and PEEP of 5 ABG showed a pO2 of 98 pCO2 33 pH of 7.47. Patient seems to be demonstrating further neurologic deterioration. CT of the brain last night showed a global hypoxic ischemic injury with interval loss of leonardo-white matter differentiation it also showed crowding of the basilar cisterns and cerebellar tonsillar herniation, in addition Hydrocephalus with interval increase in the dictation of the lateral ventricles. This is all consistent with severe ischemic/anoxic brain injury. Clinically the patient is comatose he is not responding to any stimuli. He has upward gaze deviation, he has no corneals, he has no reflexes, and even the gag reflex today is absent obviously were heading into a brain picture, and that's yet to be addressed by neurology on the case. Patient is now off sedation completely, and I believe it would be worthwhile addressing the issue of gift of life and should probably need she had the process if felt to be appropriate by neurology on the case after discussing these findings with the patient's family. Clinically I believe this is a medical futility situation at this point and should initiate the brain protocol even chest x-ray and labs were all reviewed, chest x-ray showed a right sided patchy infiltrate in the perihilar area and stable left lower lobe infiltrate reevaluated today on , patient remains in the ICU, intubated and mechanically ventilated, patient is almost brain , and the workup for gift of life and organ donation is in process. Patient is on assist control rate of 14 tidal volume 490 FiO2 35, PEEP of 8, patient has been receiving 3% saline at 1.5 mL/h he is also on propofol at 25 mcg/kg/m still on Keppra and Zosyn. His Glucerna is at 62 mL per hour. Clinically hardly any change, and the patient is in the process of getting further evaluation for organABG showed a pO2 of 138 pCO2 40 pH of 7.39 sodium is 152, patient is on 3% saline as per neurology for his truncal herniation.incidentally, patient tested positive for COVID-19 infection today. Objective - Vital Signs Vital signs: Vital Signs Temp 97.9 F 11/03/22 08:00 Pulse 63 11/03/22 11:00 Resp 14 11/03/22 11:00 BP 97/47 11/03/22 11:00 Pulse Ox 99 11/03/22 11:00 FiO2 35 11/03/22 11:20 Intake & Output 11/02/22 11/03/22 11/03/22 18:59 06:59 18:59 Intake Total 2685.986 9550.422 537.0 Output Total 1425 745 200 Balance 492.435 0355.422 337.0 Intake: IV 620 2325 475.0 0.9 @ KVO 30 50 Piperacillin-Tazobactam 3 100 .375 gm In Sodium Chloride 0.9% 100 ml @ 25 mls/hr IVPB Q8HR [facility] Rx# :[id number] Sodium Chloride 0.9% 1, 620 820 350 000 ml @ 70 mls/hr IV . [id number] [facility] Rx#:[id number] Sodium Chloride 0.9% 1, 1000 000 ml @ 999 mls/hr IV . Q1H1M [facility] Rx#:[id number] Sodium Chloride 3%( 275 75.0 Hypertonic) 500 ml @ 25 mls/hr IV .Q20H [facility] Rx#: [id number] levETIRAcetam IV 1,000 mg 100 In Saline 1 100ml.bag @ 400 mls/hr IVPB Q12HR [facility] Rx#:[id number] Intake, IV Titration 580.533 205.422 Amount Clevidipine Butyrate 25 30.533 70.100 mg In Empty Bag 1 bag @ 1 MG/HR 2 mls/hr IV .Q24H [facility] Rx#:[id number] Piperacillin-Tazobactam 3 150 25 .375 gm In Sodium Chloride 0.9% 100 ml @ 25 mls/hr IVPB Q8HR [facility] Rx# :[id number] Sodium Chloride 3%( 300 25 Hypertonic) 500 ml @ 25 mls/hr IV .Q20H [facility] Rx#: [id number] levETIRAcetam IV 1,000 mg 100 In Saline 1 100ml.bag @ 400 mls/hr IVPB Q12HR [facility] Rx#:[id number] propofoL 1,000 mg In 85.322 Empty Bag 1 bag @ 15 MCG/ KG/MIN 7.348 mls/hr IV . [id number] [facility] Rx#:[id number] Tube Feeding 658 682 62 Other 140 120 Output: Urine 1425 745 200 Other: Voiding Method Indwelling Catheter Indwelling Catheter Indwelling Catheter # Bowel Movements 1 ABP, PAP, CO, CI - Last Documented Arterial Blood Pressure 112/41 - Exam Physical Exam: Revealed 62-year-old white male unresponsive to any stimuli, intubated mechanically ventilated in no distress. Head: Atraumatic, normocephalic, endotracheal tube and orogastric tube are intact. HEENT:[Neck is supple.] [No neck masses.] [No thyromegaly.] [No JVD.] Negative gag reflex Chest: [Clear throughout, no crackles, no rhonchi, no wheezes.] Cardiac Exam: [Normal S1 and S2, no S3 gallop, no murmur.] Abdomen: [Soft, nontender, no megaly, no rebound, no guarding, normal bowel sounds.] Neurologic: [Unresponsive, does not respond to verbal or painful stimuli, pupils are 3-4 mm in size, sluggishly reactive, sensory and motor functions could not be assessed. No reflexes reflexes, no clonus. Negative corneal reflex,. Negative gag reflex Upward gaze is noted Extremities: No clubbing, trace of bipedal edema, no cyanosis. Psychiatric: Could not assess - Labs CBC & Chem 7: 11/03/22 04:43 11/03/22 11:01 Labs: Abnormal Lab Results - Last 24 Hours (Table) 11/02/22 11/02/22 11/02/22 Range/Units 13:21 17:04 17:19 RBC (4.30-5.90) m/uL Hgb (13.0-17.5) gm/dL Hct (39.0-53.0) % Neutrophils # (1.3-7.7) k/uL Lymphocytes # (1.0-4.8) k/uL ABG pH (7.35-7.45) ABG pCO2 (35-45) mmHg ABG pO2 (83-108) mmHg ABG Total CO2 (19-24) mmol/L ABG O2 Saturation (94-97) % Sodium 146 H 146 H (137-145) mmol/L Chloride (98-107) mmol/L BUN (9-20) mg/dL Glucose (74-99) mg/dL POC Glucose (mg/dL) 122 H (70-110) mg/dL Calcium (8.4-10.2) mg/dL Total Bilirubin (0.2-1.3) mg/dL Delta Bilirubin (0.0-0.2) mg/dL AST (17-59) U/L ALT (4-49) U/L Total Protein (6.3-8.2) g/dL Albumin (3.5-5.0) g/dL Ur Specific [place] (1.001-1.035) Urine Glucose (UA) (Negative) Urine Ketones (Negative) Urine Blood (Negative) Urine Mucus (None) /hpf Coronavirus (PCR) (Not Detectd) 11/02/22 11/02/22 11/02/22 Range/Units 18:45 18:45 20:19 RBC 4.10 L (4.30-5.90) m/uL Hgb 12.3 L (13.0-17.5) gm/dL Hct 37.4 L (39.0-53.0) % Neutrophils # 7.9 H (1.3-7.7) k/uL Lymphocytes # 0.6 L (1.0-4.8) k/uL ABG pH 7.53 H (7.35-7.45) ABG pCO2 28 L (35-45) mmHg ABG pO2 >400 H (83-108) mmHg ABG Total CO2 (19-24) mmol/L ABG O2 Saturation 99.2 H (94-97) % Sodium 147 H (137-145) mmol/L Chloride 117 H (98-107) mmol/L BUN 21 H (9-20) mg/dL Glucose 148 H (74-99) mg/dL POC Glucose (mg/dL) (70-110) mg/dL Calcium 8.0 L (8.4-10.2) mg/dL Total Bilirubin (0.2-1.3) mg/dL Delta Bilirubin 0.3 H (0.0-0.2) mg/dL AST 95 H (17-59) U/L ALT 67 H (4-49) U/L Total Protein 4.8 L (6.3-8.2) g/dL Albumin 2.5 L (3.5-5.0) g/dL Ur Specific [place] (1.001-1.035) Urine Glucose (UA) (Negative) Urine Ketones (Negative) Urine Blood (Negative) Urine Mucus (None) /hpf Coronavirus (PCR) (Not Detectd) 11/02/22 11/02/22 11/02/22 Range/Units 20:20 21:07 22:37 RBC (4.30-5.90) m/uL Hgb (13.0-17.5) gm/dL Hct (39.0-53.0) % Neutrophils # (1.3-7.7) k/uL Lymphocytes # (1.0-4.8) k/uL ABG pH 7.51 H (7.35-7.45) ABG pCO2 30 L (35-45) mmHg ABG pO2 112 H (83-108) mmHg ABG Total CO2 25 H (19-24) mmol/L ABG O2 Saturation 98.6 H (94-97) % Sodium 148 H (137-145) mmol/L Chloride (98-107) mmol/L BUN (9-20) mg/dL Glucose (74-99) mg/dL POC Glucose (mg/dL) 128 H (70-110) mg/dL Calcium (8.4-10.2) mg/dL Total Bilirubin (0.2-1.3) mg/dL Delta Bilirubin (0.0-0.2) mg/dL AST (17-59) U/L ALT (4-49) U/L Total Protein (6.3-8.2) g/dL Albumin (3.5-5.0) g/dL Ur Specific [place] (1.001-1.035) Urine Glucose (UA) (Negative) Urine Ketones (Negative) Urine Blood (Negative) Urine Mucus (None) /hpf Coronavirus (PCR) (Not Detectd) 11/03/22 11/03/22 11/03/22 Range/Units 00:15 02:38 02:47 RBC (4.30-5.90) m/uL Hgb (13.0-17.5) gm/dL Hct (39.0-53.0) % Neutrophils # (1.3-7.7) k/uL Lymphocytes # (1.0-4.8) k/uL ABG pH (7.35-7.45) ABG pCO2 (35-45) mmHg ABG pO2 (83-108) mmHg ABG Total CO2 (19-24) mmol/L ABG O2 Saturation (94-97) % Sodium 149 H (137-145) mmol/L Chloride 123 H (98-107) mmol/L BUN 22 H (9-20) mg/dL Glucose 159 H (74-99) mg/dL POC Glucose (mg/dL) 138 H (70-110) mg/dL Calcium 7.2 L (8.4-10.2) mg/dL Total Bilirubin 0.1 L (0.2-1.3) mg/dL Delta Bilirubin (0.0-0.2) mg/dL AST 68 H (17-59) U/L ALT (4-49) U/L Total Protein 3.7 L (6.3-8.2) g/dL Albumin 1.8 L (3.5-5.0) g/dL Ur Specific [place] 1.046 H (1.001-1.035) Urine Glucose (UA) 4+ H (Negative) Urine Ketones 1+ H (Negative) Urine Blood Moderate H (Negative) Urine Mucus Rare H (None) /hpf Coronavirus (PCR) (Not Detectd) 11/03/22 11/03/22 11/03/22 Range/Units 02:47 03:06 04:42 RBC 3.09 L (4.30-5.90) m/uL Hgb 9.3 L D (13.0-17.5) gm/dL Hct 28.4 L (39.0-53.0) % Neutrophils # (1.3-7.7) k/uL Lymphocytes # 0.5 L (1.0-4.8) k/uL ABG pH (7.35-7.45) ABG pCO2 34 L (35-45) mmHg ABG pO2 165 H (83-108) mmHg ABG Total CO2 (19-24) mmol/L ABG O2 Saturation 98.5 H (94-97) % Sodium (137-145) mmol/L Chloride (98-107) mmol/L BUN (9-20) mg/dL Glucose (74-99) mg/dL POC Glucose (mg/dL) 165 H (70-110) mg/dL Calcium (8.4-10.2) mg/dL Total Bilirubin (0.2-1.3) mg/dL Delta Bilirubin (0.0-0.2) mg/dL AST (17-59) U/L ALT (4-49) U/L Total Protein (6.3-8.2) g/dL Albumin (3.5-5.0) g/dL Ur Specific [place] (1.001-1.035) Urine Glucose (UA) (Negative) Urine Ketones (Negative) Urine Blood (Negative) Urine Mucus (None) /hpf Coronavirus (PCR) (Not Detectd) 11/03/22 11/03/22 11/03/22 Range/Units 04:43 06:45 08:08 RBC 2.95 L (4.30-5.90) m/uL Hgb 9.4 L (13.0-17.5) gm/dL Hct 27.1 L (39.0-53.0) % Neutrophils # (1.3-7.7) k/uL Lymphocytes # 0.5 L (1.0-4.8) k/uL ABG pH (7.35-7.45) ABG pCO2 (35-45) mmHg ABG pO2 (83-108) mmHg ABG Total CO2 (19-24) mmol/L ABG O2 Saturation (94-97) % Sodium 151 H (137-145) mmol/L Chloride (98-107) mmol/L BUN (9-20) mg/dL Glucose (74-99) mg/dL POC Glucose (mg/dL) (70-110) mg/dL Calcium (8.4-10.2) mg/dL Total Bilirubin (0.2-1.3) mg/dL Delta Bilirubin (0.0-0.2) mg/dL AST (17-59) U/L ALT (4-49) U/L Total Protein (6.3-8.2) g/dL Albumin (3.5-5.0) g/dL Ur Specific [place] (1.001-1.035) Urine Glucose (UA) (Negative) Urine Ketones (Negative) Urine Blood (Negative) Urine Mucus (None) /hpf Coronavirus (PCR) Detected A (Not Detectd) 11/03/22 11/03/22 11/03/22 Range/Units 08:10 10:54 11:01 RBC (4.30-5.90) m/uL Hgb (13.0-17.5) gm/dL Hct (39.0-53.0) % Neutrophils # (1.3-7.7) k/uL Lymphocytes # (1.0-4.8) k/uL ABG pH (7.35-7.45) ABG pCO2 (35-45) mmHg ABG pO2 (83-108) mmHg ABG Total CO2 (19-24) mmol/L ABG O2 Saturation (94-97) % Sodium 152 H (137-145) mmol/L Chloride 125 H (98-107) mmol/L BUN 24 H (9-20) mg/dL Glucose 165 H (74-99) mg/dL POC Glucose (mg/dL) 151 H 173 H (70-110) mg/dL Calcium 7.2 L (8.4-10.2) mg/dL Total Bilirubin <0.1 L (0.2-1.3) mg/dL Delta Bilirubin (0.0-0.2) mg/dL AST 75 H (17-59) U/L ALT (4-49) U/L Total Protein 3.9 L (6.3-8.2) g/dL Albumin 1.9 L (3.5-5.0) g/dL Ur Specific [place] (1.001-1.035) Urine Glucose (UA) (Negative) Urine Ketones (Negative) Urine Blood (Negative) Urine Mucus (None) /hpf Coronavirus (PCR) (Not Detectd) 11/03/22 Range/Units 11:14 RBC (4.30-5.90) m/uL Hgb (13.0-17.5) gm/dL Hct (39.0-53.0) % Neutrophils # (1.3-7.7) k/uL Lymphocytes # (1.0-4.8) k/uL ABG pH (7.35-7.45) ABG pCO2 (35-45) mmHg ABG pO2 138 H (83-108) mmHg ABG Total CO2 25 H (19-24) mmol/L ABG O2 Saturation (94-97) % Sodium (137-145) mmol/L Chloride (98-107) mmol/L BUN (9-20) mg/dL Glucose (74-99) mg/dL POC Glucose (mg/dL) (70-110) mg/dL Calcium (8.4-10.2) mg/dL Total Bilirubin (0.2-1.3) mg/dL Delta Bilirubin (0.0-0.2) mg/dL AST (17-59) U/L ALT (4-49) U/L Total Protein (6.3-8.2) g/dL Albumin (3.5-5.0) g/dL Ur Specific [place] (1.001-1.035) Urine Glucose (UA) (Negative) Urine Ketones (Negative) Urine Blood (Negative) Urine Mucus (None) /hpf Coronavirus (PCR) (Not Detectd) Microbiology - Last 24 Hours (Table) 10/31/22 13:26 Blood Culture - Preliminary Blood No Growth after 48 hours Assessment and Plan Assessment: Impression: Cardiac arrest with prolonged CPR and prolonged downtime. Over 25 minutes. Acute hypoxic respiratory failure secondary to above Severe anoxic brain injury with anoxic encephalopathy. And considering the clinical deterioration and the findings on the CT of the brain, I believe the patient is almost brain Acute seizures secondary to anoxic brain injury Acute kidney injury, resolved Acute liver injury/shock liver, resolved Type 2 diabetes. Acute lactic acidosis secondary to cardiac arrest benign essential hypertension. Possible aspiration pneumonia. Patient is on Zosyn empirically. Recommendation: BAL was performed today upon the request of the team handling the gift of life issue. Continue to monitor in the ICU Continue ventilatory support Continue Keppra and valproic acid. Continue nutritional support. Continue GI and DVT prophylaxis. Medical condition is extremely poor and this point. Continue empiric antibiotics Continue Protonix and Lovenox. Patient remains extremely, critically ill and condition is futile at this point. Critical care time is over 30 minutes, not including the time spent on bronchoscopy and BAL Time with Patient: Greater than 30
[2022-11-03] MEDS: lisinopriL 5 MG TAB PO SCH (12:08)
--- NOTE | 2022-11-03 12:36 | OP ---
OPERATIVE REPORT DATE OF SERVICE : PROCEDURES PERFORMED: Bronchoscopy and bronchoalveolar lavage of the right lower lobe and left lower lobe. PREOPERATIVE DIAGNOSES: Acute hypoxic respiratory failure secondary to cardiac arrest, and the patient is a Gift of Life donor. INDICATIONS FOR PROCEDURE: Evaluation of his lungs for potential Gift of Life donation. ANESTHESIA USED: The patient was already on propofol. DESCRIPTION OF PROCEDURE: The patient was placed in the supine position. He was already on mechanical ventilation, and an adapter was applied to the endotracheal tube. Then, keeping him on 100% FiO2, I was able to go down with the bronchoscope, which was a disposable bronchoscope, through the 7.0 mm endotracheal tube, and I was able to visualize the distal airways. The trachea was noted to be erythematous. No purulent secretions in the trachea, but same thing was noted of the angelita. Then, thorough examination was done of the right upper lobe, right middle lobe, right lower lobe, left upper lobe, lingula, and left lower lobe. There was evidence of whitish tenacious secretion noted in the lower lobes, but none in the upper lobe. Lavage of the right lower lobe was done/bronchoalveolar lavage was done, and bronchoalveolar lavage of the left lower lobe was also done. The fluid obtained was sent for different diagnostic studies. Procedure was well tolerated, no complications. MMODL / IJN: [id number] /
--- NOTE | 2022-11-03 12:46 | PN ---
PROGRESS NOTE SUBJECTIVE: A 62-year-old gentleman, who was admitted to hospital with acute myocardial infarction and cardiorespiratory arrest with hypoxic encephalopathy that we opted not to take to catheterization lab, intubated on vent and unresponsive. Currently, we are waiting on Gift [employer] and family meeting. Remains intubated, sedated on vent. OBJECTIVE: VITAL SIGNS: Heart rate is 60 beats per minute. Blood pressure is 100/55, respiratory rate is 12. CHEST: Reveals diminished air entry at the bases. HEART: Reveals first and second heart sounds. No gallop. No murmur. ABDOMEN: Soft. EXTREMITIES: Did not reveal any edema. LABORATORY DATA: Labs show a hemoglobin of 9.4, platelet count is 250. Blood pressure and heart rate on the lower side. I am going to cut back on the dose of metoprolol. CURRENT MEDICATIONS: Include, 1. Aspirin. 2. Lipitor. 3. Plavix. 4. Lovenox. 5. Lopressor. ASSESSMENT AND PLAN: 1. Cardiorespiratory arrest with hypoxic encephalopathy. 2. Acute myocardial infarction. PLAN: Continue current medications. Prognosis is poor. MMODL / IJN: [id number] /
[2022-11-03] MEDS: IPRATROPIUM-ALBUTEROL 3 ML NEB INHALATION SCH ×3 (13:20→20:06)
--- NOTE | 2022-11-03 13:22 | PN ---
PROGRESS NOTE DATE OF SERVICE: 11/03/2022 SUBJECTIVE: This is a 62-year-old gentleman, admitted with acute bvc-JW-aepudda-elevation myocardial infarction as well as anoxic brain injury. He is being closely monitored. [employer] is also evaluating the patient. The patient is positive for COVID, but however bronchoscopy is being done for further evaluation. At this time, patient is on mechanical ventilation. PAST MEDICAL HISTORY: Reviewed. REVIEW OF SYSTEMS: Could not be taken. CURRENT MEDICATIONS: Reviewed include Peridex. Doses and rest of medications reviewed. PHYSICAL EXAMINATION: VITAL SIGNS: Pulse is 63, blood pressure 97/47, respirations 12. CHEST: A few scattered rhonchi. CARDIOVASCULAR: S1, S2. ABDOMEN: Soft. NERVOUS SYSTEM: Sedated. LABORATORY DATA: Reviewed. ASSESSMENT: 1. Acute ST-segment elevation inferior wall myocardial infarction, cardiac arrest, and possible anoxic brain injury. 2. Possible cerebral edema and herniation. 3. Acute pulmonary edema. 4. Diabetes mellitus, type 2. 5. COVID-19 positive from the nasal swab. 6. Hypertension. 7. Multiple medical issues. 8. No code with instructions. RECOMMENDATIONS AND DISCUSSION: Recommend to continue current medications. Continue symptomatic treatment. As mentioned, bronchoscopy has been done. Family meeting evaluated [employer] options. Otherwise, prognosis extremely guarded because of multiple complex medical issues. Follow closely with Pulmonology and Neurology. The patient has received hypertonic saline for cerebral edema. MMODL / IJN: [id number] /
[2022-11-03 15:16] LABS: Basophils % (A) 0 %; Eosinophils # (A) 0.1 k/uL (0-0.7); Eosinophils % (A) 1 %; HCT 29.1 % (39.0-53.0); HGB 9.4 gm/dL (13.0-17.5); Lymphocytes # (A) 0.6 k/uL (1.0-4.8); Lymphocytes % (A) 9 %; MCH 30.3 pg (25.0-35.0); MCHC 32.3 g/dL (31.0-37.0); MCV 93.8 fL (80.0-100.0); Mean Platelet Volume 7.9; Monocytes # (A) 0.4 k/uL (0-1.0); Monocytes % (A) 7 %; Neutrophils # (A) 5.1 k/uL (1.3-7.7); Neutrophils % (A) 81 %; Platelet Count 254 k/uL (150-450); RDW 13.2 % (11.5-15.5); WBC 6.3 k/uL (3.8-10.6)
--- NOTE | 2022-11-03 16:07 | CT ---
EXAMINATION TYPE: CT ChestAbdPelvis wo con DATE OF EXAM: 11/03/2022 INDICATION: Gift of life. COMPARISON: None CT DLP: 861.5 mGycm CONTRAST: Performed without Oral Contrast and no intravenous contrast. TECHNIQUE: Axial images at 5 mm thick sections. Reconstructed images in the coronal plane. Delayed images through the kidneys. FINDINGS: CT CHEST: Portion of the thyroid visualized is normal. Endotracheal tube tip is above the angelita. No suspicious lung nodules or focal infiltrates are presen t. There is some mild bilateral pleural effusions likely with some mild compressive atelectasis adjac ent. Tracheobronchial tree is visualized appears normal. No enlarged mediastinal or hilar adenopathy is evident. The ascending aorta diameter at the level of the main pulmonary artery is 3.2 cm. The main pulmonary artery diameter at the bifurcation is 2.2 cm. Some coronary artery calcification is present. CT ABDOMEN: Nasogastric tube tip is within the distal stomach or proximal duodenum. Liver: Normal Spleen: Normal Pancreas: Normal Adrenal glands: The adrenal glands are normal. Gallbladder: Gallstone is likely present. Kidneys: No masses are evident. No hydronephrosis is present. There is a 1.4 cm cyst at the inferio r medial pleural left kidney measuring 18 [place]. No renal stones are evident. Aorta: Vascular calcification is within the aorta. Inferior vena cava: Normal. CT PELVIS: Loops of bowel within the abdomen and pelvis are normal. There are loops of bowel which are incom pletely distended or lack oral contrast limiting their evaluation. Small amount of fluid is in the ri ght paracolic gutter. Appendix: Normal as visualized. Urinary bladder: Contains a Arango catheter. Small amount of air is within the urinary bladder which c an be related to recent instrumentation. Genitourinary structures: Prostate is normal Osseous structures: No suspicious lytic or sclerotic lesions. IMPRESSIONS: 1. Small bilateral pleural effusions. Some minimal right paracolic fluid is present. 2. Arango catheter within urinary bladder. Small amount of air is in the urinary bladder. 3. Simple appearing left renal cyst. 4. Probable gallstone.
[2022-11-03 16:23] LABS: Appearance,Urine Cloudy (Clear); Bilirubin,Urine Negative (Negative); Blood,Urine Large (Negative); Color,Urine Yellow; Glucose,Urine (UA) 4+ (Negative); Ketones,Urine Negative (Negative); Leukocyte Esterase,Urine Negative (Negative); Mucus,Urine Rare /hpf; Nitrite,Urine Negative (Negative); PH, Urine 5.5 (5.0-8.0); Protein,Urine Trace (Negative); RBC,Urine 148 /hpf (0-5); Specific Gravity,Urine 1.041 (1.001-1.035); Squamous Epithelial Cell,Urine <1 /hpf (0-4); Urobilinogen,Urine <2.0 mg/dL (<2.0); WBC,Urine 4 /hpf (0-5)
[2022-11-03 17:05] LABS: Glucose,Whole Blood 178 mg/dL (70-110)
[2022-11-03] MEDS: LACTATED RINGERS 1,000 ML IV SCH (17:44)
[2022-11-03 20:28] LABS: Appearance,BF Blood Tinged Hazy
[2022-11-03 20:29] LABS: Glucose,Whole Blood 130 mg/dL (70-110)
[2022-11-03] MEDS: ALBUTEROL HFA INHALER INHALATION SCH (20:33)
[2022-11-03] MEDS: ATORVASTATIN 80 MG TAB PO SCH (20:52)
[2022-11-03] MEDS: METOPROLOL TARTRATE 25 MG TAB PO SCH (21:07)
[2022-11-03 22:43] LABS: Basophils % (A) 0 %; Eosinophils # (A) 0.1 k/uL (0-0.7); Eosinophils % (A) 1 %; HCT 28.8 % (39.0-53.0); HGB 9.5 gm/dL (13.0-17.5); Lymphocytes # (A) 0.6 k/uL (1.0-4.8); Lymphocytes % (A) 10 %; MCH 30.8 pg (25.0-35.0); MCHC 32.9 g/dL (31.0-37.0); MCV 93.5 fL (80.0-100.0); Mean Platelet Volume 7.6; Monocytes # (A) 0.4 k/uL (0-1.0); Monocytes % (A) 7 %; Neutrophils # (A) 4.7 k/uL (1.3-7.7); Neutrophils % (A) 80 %; Platelet Count 246 k/uL (150-450); RBC 3.08 m/uL (4.30-5.90); WBC 5.9 k/uL (3.8-10.6)
[2022-11-03 22:54] LABS: ALT 54 U/L (4-49); AST 93 U/L (17-59); African American GFR (CKD) >90 (>60 ml/min/1.73 sqM); Albumin 2.1 g/dL (3.5-5.0); Alkaline Phosphatase 60 U/L (38-126); Anion Gap 3 mmol/L; Bilirubin,Unconjugated 0.1 mg/dL (0.0-1.1); Blood Urea Nitrogen 24 mg/dL (9-20); Calcium 7.5 mg/dL (8.4-10.2); Carbon Dioxide 26 mmol/L (22-30); Chloride 126 mmol/L (98-107); Glucose 97 mg/dL (74-99); Magnesium 2.5 mg/dL (1.6-2.3); Non-African American GFR(CKD) >90 (>60 ml/min/1.73 sqM); Phosphorus 3.9 mg/dL (2.5-4.5); Potassium 3.8 mmol/L (3.5-5.1); Sodium 155 mmol/L (137-145); Total Bilirubin 0.1 mg/dL (0.2-1.3); Total Protein 4.1 g/dL (6.3-8.2)
[2022-11-03 22:57] LABS: INR 0.9 (<1.2); Partial Thromboplastin Time 26.2 sec (22.0-30.0); Prothrombin Time 9.6 sec (9.0-12.0)
[2022-11-03 23:24] LABS: ABG Base Excess 1.4 mmol/L; ABG HCO3 26 mmol/L (21-25); ABG PCO2 38 mmHg (35-45); ABG PH 7.44 (7.35-7.45); ABG PO2 140 mmHg (83-108); ABG TCO2 27 mmol/L (19-24); Allen Test Performed? Yes
[2022-11-03 23:28] LABS: ABG Oxygen Saturation 99.4 % (94-97)
[2022-11-03 23:51] LABS: Glucose,Whole Blood 85 mg/dL (70-110)
[2022-11-04] MEDS: PIPERACILLIN-TAZOBACTAM 3.375 GM in SODIUM CHLORIDE 0.9% 100 ML IVPB SCH ×4 (00:41→23:11)
[2022-11-04] MEDS: ALBUTEROL HFA INHALER INHALATION SCH ×4 (02:34→20:07)
[2022-11-04 03:52] LABS: Glucose,Whole Blood 101 mg/dL (70-110)
[2022-11-04] MEDS: INSULIN ASPART (NovoLOG) 100 UNIT/ML VIAL SQ SCH ×6 (04:26→23:12)
[2022-11-04] MEDS: INSULIN DETEMIR (LEVEMIR) 100 UNIT/ML SYR SQ SCH ×2 (06:15→20:30)
[2022-11-04 08:05] LABS: Glucose,Whole Blood 137 mg/dL (70-110)
--- NOTE | 2022-11-04 08:10 | P.PN ---
Subjective Progress Note Date: 11/03/22 11/03/2022: Patient was seen for a follow-up. Patient apparently is now Covid positive, in isolation. Patient continues to be on 3% hypertonic saline solution at 12.5 mL per hour. No seizure-like activity. Patient continues to be comatose with GCS of 3. 11/02/2022: Patient was seen for a follow-up. Patient clinically worse. His pupils are minimally reactive to light sluggishly. No seizure-like activity. Patient currently on Precedex 2 mg per hour. He is off propofol since 5 AM. He has not received any Ativan. Patient underwent computed tomography scan of head performed last night, which revealed severe generalized cerebral edema, with effacement of the perimesencephalic cistern, with cerebral herniation. Also development of moderate hydrocephalus. Patient was started on 3% hypertonic saline at 25 mL per hour. No seizure-like activity noticed. 11/01/2022: Patient initially seen by Dr. [place]. Please refer to his note for details. Patient is a 62-year-old male with cardiac arrest the downtime reported for 35 minutes. Initial EEG showed burst suppressed pattern. Patient had myoclonic jerks of the face and extremities that had resolved. Patient is currently on Depakote and Keppra. Family is aware of poor prognosis. Per nursing report, patient had some seizure-type activity last night for which he received Ativan 1 mg IV at 10 PM. He has been off propofol 10 mcg/kg/m since then. EEG was performed, while he was on propofol. Patient at present is intubated, minimally sedated with propofol 10 mcg/kg/m. No obvious seizure activity noted. Patient is comatose, with GCS of 3. Objective - Vital Signs Vital signs: Vital Signs Temp 98.2 F 11/03/22 16:00 Pulse 67 11/03/22 16:00 Resp 14 11/03/22 16:00 BP 125/69 11/03/22 15:00 Pulse Ox 98 11/03/22 16:00 FiO2 35 11/03/22 16:00 Intake & Output 11/02/22 11/03/22 11/03/22 18:59 06:59 18:59 Intake Total 3150.648 6848.422 999.5 Output Total 1425 745 475 Balance 157.942 0983.422 524.5 Intake: IV 620 2325 937.5 0.9 @ KVO 30 100 Piperacillin-Tazobactam 3 100 .375 gm In Sodium Chloride 0.9% 100 ml @ 25 mls/hr IVPB Q8HR [facility] Rx# :[id number] Sodium Chloride 0.9% 1, 620 820 700 000 ml @ 70 mls/hr IV . [id number] [facility] Rx#:[id number] Sodium Chloride 0.9% 1, 1000 000 ml @ 999 mls/hr IV . Q1H1M [facility] Rx#:[id number] Sodium Chloride 3%( 275 137.5 Hypertonic) 500 ml @ 25 mls/hr IV .Q20H [facility] Rx#: [id number] levETIRAcetam IV 1,000 mg 100 In Saline 1 100ml.bag @ 400 mls/hr IVPB Q12HR [facility] Rx#:[id number] Intake, IV Titration 580.533 205.422 Amount Clevidipine Butyrate 25 30.533 70.100 mg In Empty Bag 1 bag @ 1 MG/HR 2 mls/hr IV .Q24H [facility] Rx#:[id number] Piperacillin-Tazobactam 3 150 25 .375 gm In Sodium Chloride 0.9% 100 ml @ 25 mls/hr IVPB Q8HR [facility] Rx# :[id number] Sodium Chloride 3%( 300 25 Hypertonic) 500 ml @ 25 mls/hr IV .Q20H [facility] Rx#: [id number] levETIRAcetam IV 1,000 mg 100 In Saline 1 100ml.bag @ 400 mls/hr IVPB Q12HR [facility] Rx#:[id number] propofoL 1,000 mg In 85.322 Empty Bag 1 bag @ 15 MCG/ KG/MIN 7.348 mls/hr IV . [id number] [facility] Rx#:[id number] Tube Feeding 658 682 62 Other 140 120 Output: Urine 1425 745 475 Other: Voiding Method Indwelling Catheter Indwelling Catheter Indwelling Catheter # Bowel Movements 1 ABP, PAP, CO, CI - Last Documented Arterial Blood Pressure 151/50 - Exam On examination patient is comatose, with GCS of 3. Patient does not respond to painful stimuli. His pupils are now small, about 3 mm, very minimally reactive if at all. They are equal in size. Oculocephalics are absent. Corneals are absent. Patient has a negative gag, but weakly positive cough as per nurse when deep suctioning. Reflexes are absent, plantars are flat. No obvious seizure activity noted. - Labs CBC & Chem 7: 11/03/22 22:05 11/03/22 22:05 Labs: Abnormal Lab Results - Last 24 Hours (Table) 11/02/22 11/02/22 11/02/22 Range/Units 17:04 18:45 18:45 RBC 4.10 L (4.30-5.90) m/uL Hgb 12.3 L (13.0-17.5) gm/dL Hct 37.4 L (39.0-53.0) % Neutrophils # 7.9 H (1.3-7.7) k/uL Lymphocytes # 0.6 L (1.0-4.8) k/uL ABG pH (7.35-7.45) ABG pCO2 (35-45) mmHg ABG pO2 (83-108) mmHg ABG Total CO2 (19-24) mmol/L ABG O2 Saturation (94-97) % Sodium 146 H 147 H (137-145) mmol/L Chloride 117 H (98-107) mmol/L BUN 21 H (9-20) mg/dL Glucose 148 H (74-99) mg/dL POC Glucose (mg/dL) (70-110) mg/dL Calcium 8.0 L (8.4-10.2) mg/dL Total Bilirubin (0.2-1.3) mg/dL Delta Bilirubin 0.3 H (0.0-0.2) mg/dL AST 95 H (17-59) U/L ALT 67 H (4-49) U/L Total Protein 4.8 L (6.3-8.2) g/dL Albumin 2.5 L (3.5-5.0) g/dL Ur Specific [place] (1.001-1.035) Urine Protein (Negative) Urine Glucose (UA) (Negative) Urine Ketones (Negative) Urine Blood (Negative) Urine RBC (0-5) /hpf Urine Mucus (None) /hpf Coronavirus (PCR) (Not Detectd) 11/02/22 11/02/22 11/02/22 Range/Units 20:19 20:20 21:07 RBC (4.30-5.90) m/uL Hgb (13.0-17.5) gm/dL Hct (39.0-53.0) % Neutrophils # (1.3-7.7) k/uL Lymphocytes # (1.0-4.8) k/uL ABG pH 7.53 H 7.51 H (7.35-7.45) ABG pCO2 28 L 30 L (35-45) mmHg ABG pO2 >400 H 112 H (83-108) mmHg ABG Total CO2 25 H (19-24) mmol/L ABG O2 Saturation 99.2 H 98.6 H (94-97) % Sodium (137-145) mmol/L Chloride (98-107) mmol/L BUN (9-20) mg/dL Glucose (74-99) mg/dL POC Glucose (mg/dL) 128 H (70-110) mg/dL Calcium (8.4-10.2) mg/dL Total Bilirubin (0.2-1.3) mg/dL Delta Bilirubin (0.0-0.2) mg/dL AST (17-59) U/L ALT (4-49) U/L Total Protein (6.3-8.2) g/dL Albumin (3.5-5.0) g/dL Ur Specific [place] (1.001-1.035) Urine Protein (Negative) Urine Glucose (UA) (Negative) Urine Ketones (Negative) Urine Blood (Negative) Urine RBC (0-5) /hpf Urine Mucus (None) /hpf Coronavirus (PCR) (Not Detectd) 11/02/22 11/03/22 11/03/22 Range/Units 22:37 00:15 02:38 RBC (4.30-5.90) m/uL Hgb (13.0-17.5) gm/dL Hct (39.0-53.0) % Neutrophils # (1.3-7.7) k/uL Lymphocytes # (1.0-4.8) k/uL ABG pH (7.35-7.45) ABG pCO2 (35-45) mmHg ABG pO2 (83-108) mmHg ABG Total CO2 (19-24) mmol/L ABG O2 Saturation (94-97) % Sodium 148 H (137-145) mmol/L Chloride (98-107) mmol/L BUN (9-20) mg/dL Glucose (74-99) mg/dL POC Glucose (mg/dL) 138 H (70-110) mg/dL Calcium (8.4-10.2) mg/dL Total Bilirubin (0.2-1.3) mg/dL Delta Bilirubin (0.0-0.2) mg/dL AST (17-59) U/L ALT (4-49) U/L Total Protein (6.3-8.2) g/dL Albumin (3.5-5.0) g/dL Ur Specific [place] 1.046 H (1.001-1.035) Urine Protein (Negative) Urine Glucose (UA) 4+ H (Negative) Urine Ketones 1+ H (Negative) Urine Blood Moderate H (Negative) Urine RBC (0-5) /hpf Urine Mucus Rare H (None) /hpf Coronavirus (PCR) (Not Detectd) 11/03/22 11/03/22 11/03/22 Range/Units 02:47 02:47 03:06 RBC 3.09 L (4.30-5.90) m/uL Hgb 9.3 L D (13.0-17.5) gm/dL Hct 28.4 L (39.0-53.0) % Neutrophils # (1.3-7.7) k/uL Lymphocytes # 0.5 L (1.0-4.8) k/uL ABG pH (7.35-7.45) ABG pCO2 34 L (35-45) mmHg ABG pO2 165 H (83-108) mmHg ABG Total CO2 (19-24) mmol/L ABG O2 Saturation 98.5 H (94-97) % Sodium 149 H (137-145) mmol/L Chloride 123 H (98-107) mmol/L BUN 22 H (9-20) mg/dL Glucose 159 H (74-99) mg/dL POC Glucose (mg/dL) (70-110) mg/dL Calcium 7.2 L (8.4-10.2) mg/dL Total Bilirubin 0.1 L (0.2-1.3) mg/dL Delta Bilirubin (0.0-0.2) mg/dL AST 68 H (17-59) U/L ALT (4-49) U/L Total Protein 3.7 L (6.3-8.2) g/dL Albumin 1.8 L (3.5-5.0) g/dL Ur Specific [place] (1.001-1.035) Urine Protein (Negative) Urine Glucose (UA) (Negative) Urine Ketones (Negative) Urine Blood (Negative) Urine RBC (0-5) /hpf Urine Mucus (None) /hpf Coronavirus (PCR) (Not Detectd) 11/03/22 11/03/22 11/03/22 Range/Units 04:42 04:43 06:45 RBC 2.95 L (4.30-5.90) m/uL Hgb 9.4 L (13.0-17.5) gm/dL Hct 27.1 L (39.0-53.0) % Neutrophils # (1.3-7.7) k/uL Lymphocytes # 0.5 L (1.0-4.8) k/uL ABG pH (7.35-7.45) ABG pCO2 (35-45) mmHg ABG pO2 (83-108) mmHg ABG Total CO2 (19-24) mmol/L ABG O2 Saturation (94-97) % Sodium 151 H (137-145) mmol/L Chloride (98-107) mmol/L BUN (9-20) mg/dL Glucose (74-99) mg/dL POC Glucose (mg/dL) 165 H (70-110) mg/dL Calcium (8.4-10.2) mg/dL Total Bilirubin (0.2-1.3) mg/dL Delta Bilirubin (0.0-0.2) mg/dL AST (17-59) U/L ALT (4-49) U/L Total Protein (6.3-8.2) g/dL Albumin (3.5-5.0) g/dL Ur Specific [place] (1.001-1.035) Urine Protein (Negative) Urine Glucose (UA) (Negative) Urine Ketones (Negative) Urine Blood (Negative) Urine RBC (0-5) /hpf Urine Mucus (None) /hpf Coronavirus (PCR) (Not Detectd) 11/03/22 11/03/22 11/03/22 Range/Units 08:08 08:10 10:15 RBC 3.10 L (4.30-5.90) m/uL Hgb 9.4 L (13.0-17.5) gm/dL Hct 29.1 L (39.0-53.0) % Neutrophils # (1.3-7.7) k/uL Lymphocytes # 0.6 L (1.0-4.8) k/uL ABG pH (7.35-7.45) ABG pCO2 (35-45) mmHg ABG pO2 (83-108) mmHg ABG Total CO2 (19-24) mmol/L ABG O2 Saturation (94-97) % Sodium (137-145) mmol/L Chloride (98-107) mmol/L BUN (9-20) mg/dL Glucose (74-99) mg/dL POC Glucose (mg/dL) 151 H (70-110) mg/dL Calcium (8.4-10.2) mg/dL Total Bilirubin (0.2-1.3) mg/dL Delta Bilirubin (0.0-0.2) mg/dL AST (17-59) U/L ALT (4-49) U/L Total Protein (6.3-8.2) g/dL Albumin (3.5-5.0) g/dL Ur Specific [place] (1.001-1.035) Urine Protein (Negative) Urine Glucose (UA) (Negative) Urine Ketones (Negative) Urine Blood (Negative) Urine RBC (0-5) /hpf Urine Mucus (None) /hpf Coronavirus (PCR) Detected A (Not Detectd) 11/03/22 11/03/22 11/03/22 Range/Units 10:54 11:01 11:14 RBC (4.30-5.90) m/uL Hgb (13.0-17.5) gm/dL Hct (39.0-53.0) % Neutrophils # (1.3-7.7) k/uL Lymphocytes # (1.0-4.8) k/uL ABG pH (7.35-7.45) ABG pCO2 (35-45) mmHg ABG pO2 138 H (83-108) mmHg ABG Total CO2 25 H (19-24) mmol/L ABG O2 Saturation (94-97) % Sodium 152 H (137-145) mmol/L Chloride 125 H (98-107) mmol/L BUN 24 H (9-20) mg/dL Glucose 165 H (74-99) mg/dL POC Glucose (mg/dL) 173 H (70-110) mg/dL Calcium 7.2 L (8.4-10.2) mg/dL Total Bilirubin <0.1 L (0.2-1.3) mg/dL Delta Bilirubin (0.0-0.2) mg/dL AST 75 H (17-59) U/L ALT (4-49) U/L Total Protein 3.9 L (6.3-8.2) g/dL Albumin 1.9 L (3.5-5.0) g/dL Ur Specific [place] (1.001-1.035) Urine Protein (Negative) Urine Glucose (UA) (Negative) Urine Ketones (Negative) Urine Blood (Negative) Urine RBC (0-5) /hpf Urine Mucus (None) /hpf Coronavirus (PCR) (Not Detectd) 11/03/22 11/03/22 Range/Units 15:30 17:03 RBC (4.30-5.90) m/uL Hgb (13.0-17.5) gm/dL Hct (39.0-53.0) % Neutrophils # (1.3-7.7) k/uL Lymphocytes # (1.0-4.8) k/uL ABG pH (7.35-7.45) ABG pCO2 (35-45) mmHg ABG pO2 (83-108) mmHg ABG Total CO2 (19-24) mmol/L ABG O2 Saturation (94-97) % Sodium (137-145) mmol/L Chloride (98-107) mmol/L BUN (9-20) mg/dL Glucose (74-99) mg/dL POC Glucose (mg/dL) 178 H (70-110) mg/dL Calcium (8.4-10.2) mg/dL Total Bilirubin (0.2-1.3) mg/dL Delta Bilirubin (0.0-0.2) mg/dL AST (17-59) U/L ALT (4-49) U/L Total Protein (6.3-8.2) g/dL Albumin (3.5-5.0) g/dL Ur Specific [place] 1.041 H (1.001-1.035) Urine Protein Trace H (Negative) Urine Glucose (UA) 4+ H (Negative) Urine Ketones (Negative) Urine Blood Large H (Negative) Urine RBC 148 H (0-5) /hpf Urine Mucus Rare H (None) /hpf Coronavirus (PCR) (Not Detectd) Microbiology - Last 24 Hours (Table) 11/03/22 09:45 Fungal Culture - Preliminary Bronchial Washings - Random 11/03/22 09:45 Acid Fast Bacilli Culture - Preliminary Bronchial Washings - Random 10/31/22 13:26 Blood Culture - Preliminary Blood No Growth after 72 hours Assessment and Plan Assessment: This is a 62-year-old gentleman with had a cardiopulmonary arrest while at work and was down time for a total of possibly 35 minutes. Severe anoxic brain injury with anoxic encephalopathy, computed tomography scan showing severe generalized cerebral edema with mass effect, crowding of the basi lar cisterns with cerebellar tonsillar and uncal herniation. Presence of new onset hydrocephalus due to above. Impending cerebral . Patient has minimal brainstem reflexes preserved at this time. Myloclonic seizure (facial and body) due to above--resolved Acute STEMI, inferior wall myocardial infarction Liver shock likely due to cardiac arrest Acute kidney injury likely due to cardiac arrest Diabetes mellitus type 2 Hypertension Plan: Computed tomography scan of head 11/01/2022 revealed interval loss of leonardo-white matter differentiation, compatible with global hypoxic ischemic injury in the setting of cardiac arrest. Crowding of the basilar cisterns with cerebral tonsillar and uncal herniation. New hydrocephalus with interval increase in dilation of the lateral ventricles, likely secondary to #1 and #2. I personally reviewed CT head, agree with the findings. Based upon the patient's clinical condition, EEG findings and computed sylvia ography scan, patient is impending brain . He has minimal brainstem reflexes present. Examination has worsened as compared to the previous exam. Repeat EEG 11/01/2022 was completely suppressed EEG, suggestive of isoelectric EEG. No epileptiform activity was seen. When compared to the EEG from 10/30/2022, the EEG seems to be worse, with complete absence of any bursts or any discernible electrocerebral activity. We will stop Depakote, as there is no epileptiform activity seen. Continue Keppra. Repeat AST 108 and ALT 137, both improving. We'll defer the rest of the medical management to the ICU and cardiology team Condition is very critical and prognosis is dismal. Discussed with patient's nurse in detail. Patient candidate for possible gift of life.
--- NOTE | 2022-11-04 09:39 | XR ---
EXAMINATION TYPE: XR chest 1V portable DATE OF EXAM: 11/04/2022 COMPARISON: 11/03/2022 HISTORY: Tube placement TECHNIQUE: Single frontal view of the chest is obtained. FINDINGS: ET tube 5.8 cm above angelita. NG tube seen coursing in the abdomen. The lungs are clear the re is no pneumothorax or interstitial edema. No pleural effusion. Left retrocardiac subsegmental cons olidation.. IMPRESSION: Subsegmental consolidation left retrocardiac region. May be on the basis of atelectasis or early
--- NOTE | 2022-11-04 09:39 | XR ---
EXAMINATION TYPE: XR chest 1V DATE OF EXAM: 11/04/2022 COMPARISON: 11/03/2022 HISTORY: Shortness of breath TECHNIQUE: Single frontal view of the chest is obtained. FINDINGS: ET tube 5.8 cm above angelita. NG tube seen coursing in the abdomen. The lungs are clear the re is no pneumothorax or interstitial edema. No pleural effusion. Left retrocardiac subsegmental cons olidation.. IMPRESSION: Subsegmental consolidation left retrocardiac region. May be on the basis of atelectasis or early
[2022-11-04 09:57] LABS: ABG HCO3 26 mmol/L (21-25); ABG PCO2 38 mmHg (35-45); ABG PH 7.45 (7.35-7.45); ABG PO2 391 mmHg (83-108); ABG TCO2 27 mmol/L (19-24)
[2022-11-04 10:00] LABS: Allen Test Performed? no
[2022-11-04] MEDS: METOPROLOL TARTRATE 25 MG TAB PO SCH ×2 (10:07→20:30)
[2022-11-04] MEDS: CLOPIDOGREL 75 MG TAB PO SCH (10:07)
[2022-11-04] MEDS: PANTOPRAZOLE 40 MG/10 ML VIAL IV SCH (10:07)
[2022-11-04] MEDS: ENOXAPARIN 40 MG/0.4 ML SYRINGE SQ SCH (10:08)
[2022-11-04] MEDS: CHLORHEXIDINE GLUCONATE 15 ML CUP MUCOUS MEM SCH ×2 (10:08→20:30)
[2022-11-04] MEDS: levETIRAcetam IV 1,000 MG in SALINE 1 100ML.BAG IVPB SCH ×2 (10:08→20:30)
[2022-11-04] MEDS: ASPIRIN 81 MG PO SCH (10:08)
[2022-11-04 10:58] LABS: HCT 29.9 % (39.0-53.0); HGB 9.5 gm/dL (13.0-17.5); MCH 30.4 pg (25.0-35.0); MCHC 31.9 g/dL (31.0-37.0); MCV 95.2 fL (80.0-100.0); Mean Platelet Volume 7.7; Platelet Count 243 k/uL (150-450); RBC 3.14 m/uL (4.30-5.90); WBC 6.7 k/uL (3.8-10.6)
[2022-11-04 11:11] LABS: ALT 62 U/L (4-49); AST 113 U/L (17-59); African American GFR (CKD) >90 (>60 ml/min/1.73 sqM); Albumin 2.1 g/dL (3.5-5.0); Alkaline Phosphatase 69 U/L (38-126); Anion Gap 3 mmol/L; Bilirubin,Unconjugated 0.1 mg/dL (0.0-1.1); Blood Urea Nitrogen 24 mg/dL (9-20); Calcium 7.6 mg/dL (8.4-10.2); Carbon Dioxide 26 mmol/L (22-30); Chloride 128 mmol/L (98-107); Glucose 158 mg/dL (74-99); Magnesium 2.5 mg/dL (1.6-2.3); Non-African American GFR(CKD) >90 (>60 ml/min/1.73 sqM); Phosphorus 3.9 mg/dL (2.5-4.5); Potassium 3.9 mmol/L (3.5-5.1); Sodium 157 mmol/L (137-145); Total Bilirubin 0.1 mg/dL (0.2-1.3); Total Protein 4.3 g/dL (6.3-8.2)
[2022-11-04 11:15] LABS: INR 0.9 (<1.2); Partial Thromboplastin Time 25.3 sec (22.0-30.0); Prothrombin Time 9.7 sec (9.0-12.0)
[2022-11-04 11:58] VITALS: BMI 28.0
[2022-11-04 12:03] LABS: Glucose,Whole Blood 175 mg/dL (70-110)
--- NOTE | 2022-11-04 12:25 | P.PN ---
Subjective Progress Note Date: 11/04/22 Principal diagnosis: Cardiac arrest, and anoxic brain injury 62-year-old male patient who presented to the ED with a cardiac arrest. 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 He was witnessed arrest by coworker. CPR was immediately started. The patient was hooked to an AICD and the patient was given 2 shocks. EMS called to the scene, and upon their arrival, the patient was then PA and the patient was given a total of 4 was of epinephrine, 1 dose of amiodarone. He coded for a total of 30 minutes with a short period of time when there was a return returnto his circulation. He also went into ventricular tachycardia/fibrillation and required defibrillation. Upon arrival to the emergency, the patient was coded for another 5 minutes and there was return of spontaneous circulation. I believe the total down time was around 35 minutes. The patient was apparently pulseless of the time of arrival to the emergency department. Subsequently, he regained blood pressure and his most recent blood pressure 190/100. The patient is currently intubated on a mechanical ventilator. EKG showed a inferior wall ST segment elevation myocardial infarction. Cardiology was informed. Cardiac catheterization was declined based on his prolonged downtime. At this point in time, the patient was seen in the emergency. He is on a mechanical ventilator, assist control 14, tidal volume of 450, FiO2 100% and a PEEP of 5. His chest x-ray showing pulmonary edema ET tube is in a good location. Echocardiogram was ordered and it will be done within next few minutes. Arango catheter is in place and the patient has good urine output. The patient is on no sedation. He is somewhat asynchronous a mechanical ventilator, trying to breathe above the vent setting and becoming asynchronous. I recommended to start the patient on propofol. He was given rectal aspirin. He was started on IV heparin. The blood pressure was noted to be elevated. Recommended metoprolol 50 mg twice a day, hydralazine as needed and Lasix. Neurologically impaired. The patient is unresponsive. Pupils are 3 mm in size, sluggishly reactive to light. No other withdrawing to any painful stimulation. His initial troponin set was negative. The B cigars at 6.3 with a hemoglobin 12.7 and a platelet count of 360. Normal cognition profile. Bicarbs at 17 with a BUN of 27 and a creatinine of 1.47. Lactic acid level was at 8.5. Glucose of 471. He is diabetic. 10/30/2022, the patient's is being seen in the intensive care unit, intubated on a mechanical ventilator. Currently on propofol which is running at 25 mcg/kg/m to maintain synchrony with a mechanical ventilator. Neurologically, he has upward gaze, he does have sensation to pain as the patient moves his arms and legs to deep painful stimulation. An accurate motor and sensory evaluation cannot be done. The patient does not follow any commands. No seizure activity has been noted. The patient was seen by neurology yesterday. CAT scan of the brain was done that showed no acute abnormalities. At the same time, the karely ent was seen by neurology and started on IV Keppra empirically. Anoxic encephalopathy is highly suspected because of his prolonged downtime following the cardiac arrest. EEG is to follow today. In terms of respiratory support, the patient remains on a mechanical ventilator. Is on a rate of 20, tidal volume of 450, FiO2 of 50% with a PEEP of 5, and a morning blood gases showed a pH of 7.45 with a pCO2 of 36 and pO2 of 3:30 and this was an FiO2 of 100%, as such, the FiO2 was dropped onto 50%. The chest x-ray from today shows some improvement in the pulmonary edema. There is still some underlying cephalization. No airspace disease or consolidations. EKG was in a good location. The patient is afebrile for now. No significant respiratory secretions. The patient is quite successful mechanical ventilator. Hemodynamically, the patient has a stable blood pressure. No pressors were ut ilized. The patient is currently on IV fluids at 70 mL an hour normal saline. Troponins peaked at 2.6. Echocardiogram was done yesterday and the patient was found to have mildly increased left ventricular wall thickness, ejection fraction on the left was 55%, normal RV, there was some mild inferior wall hypokinesis which goes along with his acute ST segment elevation inferior wall myocardial infarction. The patient remains on IV heparin. PTT is therapeutic. Lactic acid level dropped from 8.5 down to 2.6. Urine drug screen was done and the patient was positive for tricyclics and benzodiazepines. On today's evaluation of 10/31/2022, the patient remains in anoxic encephalopathy, comatose, unresponsive. Positive cough. Positive blink. Positive corneal and gag reflex. Unresponsive to any verbal or painful stimulation. At times, we noticed the he withdraws to deep painful stimulation. No seizure activity has been noted. EEG was done yesterday and it was consistent with diffuse encephalopathy and signs of anoxic encephalopathy. CAT scan of the chest was negative. Neurologic is on the case. The patient remains on Keppra. Meanwhile, the patient remains intubated on a mechanical ventilator. Is on assist-control mode at the rate of 20, tidal volume of 450 with an FiO2 of 40% with PEEP of 5. Blood gas from today shows a pH of 7.42 with a pCO2 of 32 and a pO2 of 133. The chest x-ray from today is showing adequate expansion of both lungs. ET tube is in a good location. There may be some left lower lobe atelectasis. Orogastric tube is also in place. No airspace disease or consolidations. The patient remains on low-dose propofol which is running at 20 mcg/kg/m and this was essentially to maintain synchrony. He was given a sedation holiday yesterday without any signs of neurological recovery. The same will be done today. He is hemodynamically stable in normal sinus rhythm. Is on no pressors. He is maintaining his pressure for now. No cardiac arrhythmias of been noted. He remains on IV heparin. He is on aspirin. He was started on enteral feeding for nutritional support. Echo of the heart was noted yesterday and the patient has no LV dysfunction and the patient had some mild inferior wall hypokinesis. In terms of the rest of the labs done today, the patient has a WBC count of 17.3 with hemoglobin 13.9 and a platelet count of 331. Bicarb is 25, sodium is at 141, potassium level is at 4.9, glucose is 133. The patient is currently receiving enteral feeding in the form of Glucerna at the rate of 75 mL an hour. His blood sugars have been under adequate control and the patient is currently on a sliding scale insulin coverage. I also added Levemir 11 units a day for blood sugar control. Patient was reevaluated today on 11/01/2022, remains in the ICU intubated and mechanically ventilated is now on assist control rate of 20 tidal volume 450 FiO2 40% and PEEP of 5. ABG showed a pO2 of 125 pCO2 35 pH of 7.44 hence FiO2 was cut down to 35%. Patient was off sedation for 24 hours, however he developed seizures and seizure-like activities requiring Ativan, and he is back now on propofol at 10 mcg/kg/m and receiving Ativan intermittently. Although the patient is on Keppra and valproic acid. Receiving Glucerna at 35 mL/h IV fluid 0.9 normal saline at 50 mL/h patient remains on Zosyn empirically. Endotracheal tube was ordered to be adjusted and we will advance the endotracheal tube to see him today. Chest x-ray continues to show stable left sided consolidation and small effusion remains on antibiotics/Zosyn. Remind you patient had an initial presentation of cardiac arrest, he had CPR for good 25 minutes, he received epinephrine 4, he also received amiodarone, and his presentation was presentation of ST elevation myocardial infarction via catheterization was done because of his prolonged down condition and his overall neurological status. Patient is being followed by neurology for his suspected anoxic brain injury with seems to be quite severe but the patient is not brain . Patient remains obviously quite encephalopathic, and he continues to have myoclonic seizures not to mention his other medical problems including inferior wall PR, shock liver, and acute kidney injury likely secondary to his cardiac arrest. His renal injury has resolved and his creatinine is down to 0.83. Elects lites are normal. WBC count is 11.8 hemoglobin 12.1. Liver enzymes have been gradually improving. And his troponin has been trending down since admission Reevaluated today on 11/02/2022, patient remains in the ICU intubated and mechanically ventilated, he is on assist control rate of 20 tidal volume 450 FiO2 35% and PEEP of 5 ABG showed a pO2 of 98 pCO2 33 pH of 7.47. Patient seems to be demonstrating further neurologic deterioration. CT of the brain last night showed a global hypoxic ischemic injury with interval loss of leonardo-white matter differentiation it also showed crowding of the basilar cisterns and cerebellar tonsillar herniation, in addition Hydrocephalus with interval increase in the dictation of the lateral ventricles. This is all consistent with severe ischemic/anoxic brain injury. Clinically the patient is comatose he is not responding to any stimuli. He has upward gaze deviation, he has no corneals, he has no reflexes, and even the gag reflex today is absent obviously were heading into a brain picture, and that's yet to be addressed by neurology on the case. Patient is now off sedation completely, and I believe it would be worthwhile addressing the issue of gift of life and should probably need she had the process if felt to be appropriate by neurology on the case after discussing these findings with the patient's family. Clinically I believe this is a medical futility situation at this point and should initiate the brain protocol even chest x-ray and labs were all reviewed, chest x-ray showed a right sided patchy infiltrate in the perihilar area and stable left lower lobe infiltrate reevaluated today on , patient remains in the ICU, intubated and mechanically ventilated, patient is almost brain , and the workup for gift of life and organ donation is in process. Patient is on assist control rate of 14 tidal volume 490 FiO2 35, PEEP of 8, patient has been receiving 3% saline at 1.5 mL/h he is also on propofol at 25 mcg/kg/m still on Keppra and Zosyn. His Glucerna is at 62 mL per hour. Clinically hardly any change, and the patient is in the process of getting further evaluation for organABG showed a pO2 of 138 pCO2 40 pH of 7.39 sodium is 152, patient is on 3% saline as per neurology for his truncal herniation.incidentally, patient tested positive for COVID-19 infection today. Reevaluated today on 11/04/2022, patient is basically about the same, undergoing the process of evaluation by the gift of life team, changes have been done on his vent settings, 100% FiO2 his pO2 was 391 pCO2 38 pH of 7.45. His sodium is up to 157, hence 50% saline was discontinued and the patient is not receiving D5W. WBC count 6.7 hemoglobin is 9.5, all the labs are basically normal except for elevated sodium and this was mostly related to the 3% saline that he was receiving for his truncal herniation. Chest x-ray is showing significant improv ement in his subsegmental atelectasis and consolidation in the left retrocardiac area, improvement is definitely noted on the chest x-ray. Nonetheless the patient continues to have significant amount of secretions as per the nurse taking care of the pain Objective - Vital Signs Vital signs: Vital Signs Temp 97.8 F 11/04/22 12:00 Pulse 68 11/04/22 12:00 Resp 15 11/04/22 12:00 BP 138/76 11/04/22 12:00 Pulse Ox 99 11/04/22 12:00 FiO2 35 11/04/22 12:00 Intake & Output 11/03/22 11/04/22 11/04/22 18:59 06:59 18:59 Intake Total 1319.5 1692 932 Output Total 625 440 525 Balance 694.5 1252 407 Weight 76.3 kg 76.3 kg Intake: IV 1157.5 820 560 0.9 @ KVO 120 120 60 Lactated Ringers 1,000 ml 100 600 300 @ 50 mls/hr IV .Q20H MARCELINA Rx#:[id number] Piperacillin-Tazobactam 3 100 100 .375 gm In Sodium Chloride 0.9% 100 ml @ 25 mls/hr IVPB Q8HR MARCELINA Rx# :[id number] Sodium Chloride 0.9% 1, 700 000 ml @ 70 mls/hr IV . [id number] MARCELINA Rx#:[id number] Sodium Chloride 3%( 137.5 Hypertonic) 500 ml @ 25 mls/hr IV .Q20H MARCELINA Rx#: [id number] levETIRAcetam IV 1,000 mg 100 100 In Saline 1 100ml.bag @ 400 mls/hr IVPB Q12HR MARCELINA Rx#:[id number] Intake, IV Titration 100 100 Amount propofoL 1,000 mg In 100 100 Empty Bag 1 bag @ 15 MCG/ KG/MIN 7.348 mls/hr IV . [id number] MARCELINA Rx#:[id number] Tube Feeding 62 682 372 Other 90 Output: Urine 625 440 525 Other: Voiding Method Indwelling Catheter Indwelling Catheter Indwelling Catheter ABP, PAP, CO, CI - Last Documented Arterial Blood Pressure 130/47 - Exam Physical Exam: Revealed 62-year-old white male unresponsive to any stimuli, intubated mechanically ventilated in no distress. Head: Atraumatic, normocephalic, endotracheal tube and orogastric tube are intact. HEENT:[Neck is supple.] [No neck masses.] [No thyromegaly.] [No JVD.] Negative gag reflex Chest: [Clear throughout, no crackles, no rhonchi, no wheezes.] Cardiac Exam: [Normal S1 and S2, no S3 gallop, no murmur.] Abdomen: [Soft, nontender, no megaly, no rebound, no guarding, normal bowel sounds.] Neurologic: [Unresponsive, does not respond to verbal or painful stimuli, pupils are 3-4 mm in size, sluggishly reactive, sensory and motor functions could not be assessed. No reflexes reflexes, no clonus. Negative corneal reflex,. Negative gag reflex Upward gaze is noted Extremities: No clubbing, trace of bipedal edema, no cyanosis. Psychiatric: Could not assess - Labs CBC & Chem 7: 11/04/22 10:38 11/04/22 10:38 Labs: Abnormal Lab Results - Last 24 Hours (Table) 11/03/22 11/03/22 11/03/22 Range/Units 10:15 15:30 17:03 RBC 3.10 L (4.30-5.90) m/uL Hgb 9.4 L (13.0-17.5) gm/dL Hct 29.1 L (39.0-53.0) % Lymphocytes # 0.6 L (1.0-4.8) k/uL ABG pO2 (83-108) mmHg ABG HCO3 (21-25) mmol/L ABG Total CO2 (19-24) mmol/L ABG O2 Saturation (94-97) % Sodium (137-145) mmol/L Chloride (98-107) mmol/L BUN (9-20) mg/dL Glucose (74-99) mg/dL POC Glucose (mg/dL) 178 H (70-110) mg/dL Calcium (8.4-10.2) mg/dL Magnesium (1.6-2.3) mg/dL Total Bilirubin (0.2-1.3) mg/dL AST (17-59) U/L ALT (4-49) U/L Total Protein (6.3-8.2) g/dL Albumin (3.5-5.0) g/dL Ur Specific Strawn 1.041 H (1.001-1.035) Urine Protein Trace H (Negative) Urine Glucose (UA) 4+ H (Negative) Urine Blood Large H (Negative) Urine RBC 148 H (0-5) /hpf Urine Mucus Rare H (None) /hpf 11/03/22 11/03/22 11/03/22 Range/Units 20:28 22:05 22:05 RBC 3.08 L (4.30-5.90) m/uL Hgb 9.5 L (13.0-17.5) gm/dL Hct 28.8 L (39.0-53.0) % Lymphocytes # 0.6 L (1.0-4.8) k/uL ABG pO2 (83-108) mmHg ABG HCO3 (21-25) mmol/L ABG Total CO2 (19-24) mmol/L ABG O2 Saturation (94-97) % Sodium 155 H (137-145) mmol/L Chloride 126 H (98-107) mmol/L BUN 24 H (9-20) mg/dL Glucose (74-99) mg/dL POC Glucose (mg/dL) 130 H (70-110) mg/dL Calcium 7.5 L (8.4-10.2) mg/dL Magnesium 2.5 H (1.6-2.3) mg/dL Total Bilirubin 0.1 L (0.2-1.3) mg/dL AST 93 H (17-59) U/L ALT 54 H (4-49) U/L Total Protein 4.1 L (6.3-8.2) g/dL Albumin 2.1 L (3.5-5.0) g/dL Ur Specific Strawn (1.001-1.035) Urine Protein (Negative) Urine Glucose (UA) (Negative) Urine Blood (Negative) Urine RBC (0-5) /hpf Urine Mucus (None) /hpf 11/03/22 11/04/22 11/04/22 Range/Units 23:23 08:04 09:55 RBC (4.30-5.90) m/uL Hgb (13.0-17.5) gm/dL Hct (39.0-53.0) % Lymphocytes # (1.0-4.8) k/uL ABG pO2 140 H 391 H (83-108) mmHg ABG HCO3 26 H 26 H (21-25) mmol/L ABG Total CO2 27 H 27 H (19-24) mmol/L ABG O2 Saturation 99.4 H 100.0 H (94-97) % Sodium (137-145) mmol/L Chloride (98-107) mmol/L BUN (9-20) mg/dL Glucose (74-99) mg/dL POC Glucose (mg/dL) 137 H (70-110) mg/dL Calcium (8.4-10.2) mg/dL Magnesium (1.6-2.3) mg/dL Total Bilirubin (0.2-1.3) mg/dL AST (17-59) U/L ALT (4-49) U/L Total Protein (6.3-8.2) g/dL Albumin (3.5-5.0) g/dL Ur Specific Strawn (1.001-1.035) Urine Protein (Negative) Urine Glucose (UA) (Negative) Urine Blood (Negative) Urine RBC (0-5) /hpf Urine Mucus (None) /hpf 11/04/22 11/04/22 11/04/22 Range/Units 10:38 10:38 12:01 RBC 3.14 L (4.30-5.90) m/uL Hgb 9.5 L (13.0-17.5) gm/dL Hct 29.9 L (39.0-53.0) % Lymphocytes # (1.0-4.8) k/uL ABG pO2 (83-108) mmHg ABG HCO3 (21-25) mmol/L ABG Total CO2 (19-24) mmol/L ABG O2 Saturation (94-97) % Sodium 157 H (137-145) mmol/L Chloride 128 H (98-107) mmol/L BUN 24 H (9-20) mg/dL Glucose 158 H (74-99) mg/dL POC Glucose (mg/dL) 175 H (70-110) mg/dL Calcium 7.6 L (8.4-10.2) mg/dL Magnesium 2.5 H (1.6-2.3) mg/dL Total Bilirubin 0.1 L (0.2-1.3) mg/dL AST 113 H (17-59) U/L ALT 62 H (4-49) U/L Total Protein 4.3 L (6.3-8.2) g/dL Albumin 2.1 L (3.5-5.0) g/dL Ur Specific Strawn (1.001-1.035) Urine Protein (Negative) Urine Glucose (UA) (Negative) Urine Blood (Negative) Urine RBC (0-5) /hpf Urine Mucus (None) /hpf Microbiology - Last 24 Hours (Table) 11/03/22 09:45 Fungal Culture - Preliminary Bronchial Washings - Random 11/03/22 09:45 Acid Fast Bacilli Culture - Preliminary Bronchial Washings - Random 10/31/22 13:26 Blood Culture - Preliminary Blood No Growth after 72 hours Assessment and Plan Assessment: Impression: Cardiac arrest with prolonged CPR and prolonged downtime. Over 25 minutes. Acute hypoxic respiratory failure secondary to above Severe anoxic brain injury with anoxic encephalopathy. Acute seizures secondary to anoxic brain injury Acute kidney injury, resolved Acute liver injury/shock liver, resolved Type 2 diabetes. Acute lactic acidosis secondary to cardiac arrest benign essential hypertension. Possible aspiration pneumonia. Patient is on Zosyn empirically. Incidental finding of COVID-19 infection. Recommendation: Coordinate with the gift of life team for eventual organ donation process. Continue to monitor in the ICU Continue ventilatory support Continue Keppra and valproic acid. Continue nutritional support. Continue GI and DVT prophylaxis. Continue empiric antibiotics Continue Protonix and Lovenox. Critical care time is over 30 Time with Patient: Greater than 30
[2022-11-04] MEDS: lisinopriL 5 MG TAB PO SCH (12:27)
[2022-11-04] MEDS: LACTATED RINGERS 1,000 ML IV SCH (15:17)
[2022-11-04 16:27] LABS: Glucose,Whole Blood 153 mg/dL (70-110)
[2022-11-04 17:53] LABS: Appearance,Urine Clear (Clear); Bilirubin,Urine Negative (Negative); Blood,Urine Negative (Negative); Color,Urine Yellow; Glucose,Urine (UA) 4+ (Negative); Ketones,Urine Trace (Negative); Leukocyte Esterase,Urine Negative (Negative); Nitrite,Urine Negative (Negative); Protein,Urine Trace (Negative); Specific Gravity,Urine 1.044 (1.001-1.035); Urobilinogen,Urine <2.0 mg/dL (<2.0)
[2022-11-04 19:59] LABS: Glucose,Whole Blood 142 mg/dL (70-110)
[2022-11-04] MEDS: ATORVASTATIN 80 MG TAB PO SCH (20:30)
--- NOTE | 2022-11-04 20:31 | PN ---
PROGRESS NOTE SUBJECTIVE: This is a 62-year-old gentleman, who is admitted to hospital with myocardial infarction and cardiorespiratory arrest with ventral herniation. Currently, he is being evaluated for organ donation, remains intubated on vent and overall his condition has remained unchanged. He will continue current medications. OBJECTIVE: GENERAL: On exam, the patient is unresponsive, intubated on vent, stable hemodynamically. CHEST: Reveals good air entry bilaterally. HEART: Reveals first and second heart sounds. No gallop. ABDOMEN: Soft. EXTREMITIES: Did not reveal any edema. LABORATORY DATA: Labs show a hemoglobin of 9.5, platelet count is 246, potassium is 3.8, creatinine is 0.8. ASSESSMENT AND PLAN: 1. Acute inferior wall myocardial infarction, status post cardiorespiratory arrest. 2. Hypoxic encephalopathy. MMODL / IJN: [id number] /
[2022-11-04 22:17] LABS: ABG Base Excess 1.4 mmol/L; ABG HCO3 25 mmol/L (21-25); ABG Oxygen Saturation 99.2 % (94-97); ABG PCO2 34 mmHg (35-45); ABG PH 7.48 (7.35-7.45); ABG PO2 147 mmHg (83-108); ABG TCO2 26 mmol/L (19-24); Allen Test Performed? Yes
[2022-11-04 22:18] LABS: Basophils % (A) 0 %; Eosinophils # (A) 0.1 k/uL (0-0.7); Eosinophils % (A) 1 %; HCT 28.7 % (39.0-53.0); HGB 9.4 gm/dL (13.0-17.5); Lymphocytes # (A) 0.6 k/uL (1.0-4.8); Lymphocytes % (A) 9 %; MCH 31.2 pg (25.0-35.0); MCHC 32.6 g/dL (31.0-37.0); MCV 95.6 fL (80.0-100.0); Mean Platelet Volume 7.7; Monocytes # (A) 0.5 k/uL (0-1.0); Monocytes % (A) 8 %; Neutrophils # (A) 5.2 k/uL (1.3-7.7); Neutrophils % (A) 80 %; Platelet Count 254 k/uL (150-450); RDW 12.9 % (11.5-15.5); WBC 6.5 k/uL (3.8-10.6)
[2022-11-04 22:28] LABS: ALT 60 U/L (4-49); AST 95 U/L (17-59); African American GFR (CKD) >90 (>60 ml/min/1.73 sqM); Albumin 2.1 g/dL (3.5-5.0); Alkaline Phosphatase 65 U/L (38-126); Anion Gap 1 mmol/L; Blood Urea Nitrogen 27 mg/dL (9-20); Calcium 7.6 mg/dL (8.4-10.2); Carbon Dioxide 28 mmol/L (22-30); Chloride 127 mmol/L (98-107); Glucose 176 mg/dL (74-99); Magnesium 2.4 mg/dL (1.6-2.3); Non-African American GFR(CKD) 89 (>60 ml/min/1.73 sqM); Phosphorus 3.8 mg/dL (2.5-4.5); Potassium 3.8 mmol/L (3.5-5.1); Sodium 156 mmol/L (137-145); Total Bilirubin 0.3 mg/dL (0.2-1.3); Total Protein 4.3 g/dL (6.3-8.2)
[2022-11-04 22:31] LABS: INR 0.9 (<1.2); Partial Thromboplastin Time 26.4 sec (22.0-30.0); Prothrombin Time 9.9 sec (9.0-12.0)
--- NOTE | 2022-11-04 22:46 | PN ---
PROGRESS NOTE DATE OF SERVICE: 11/04/2022 SUBJECTIVE: This is a 62-year-old gentleman, who was admitted with acute ST-segment elevation myocardial infarction, had possible anoxic injury also. The patient is no code. Alexis is also following the patient closely. The patient is mechanically ventilated. OBJECTIVE: VITAL SIGNS: Pulse is 68, blood pressure 138/70, respirations 15. CHEST: A few scattered rhonchi. CARDIOVASCULAR: S1, S2 muffled. ABDOMEN: Soft. LABORATORY DATA: Reviewed. ASSESSMENT: 1. Acute ST-segment elevation myocardial infarction, status post cardiac arrest, possible anoxic brain injury. 2. Cerebral edema and herniation. 3. Acute pulmonary edema. 4. Diabetes mellitus, type 2. 5. COVID-19 positive in the nasal swab. 6. Hypertension. 7. Multiple medical issues. 8. No code with instructions. RECOMMENDATIONS AND DISCUSSION: Recommend to continue current medications, continue symptomatic treatment. Otherwise, closely follow with Alexis and Dr. Finn. Prognosis extremely guarded. Further recommendations to follow. MMODL / IJN: [id number] /
[2022-11-04 23:08] LABS: Glucose,Whole Blood 158 mg/dL (70-110)
[2022-11-05 03:50] LABS: Glucose,Whole Blood 215 mg/dL (70-110)
[2022-11-05] MEDS: ALBUTEROL HFA INHALER INHALATION SCH ×3 (04:10→11:47)
[2022-11-05] MEDS: INSULIN ASPART (NovoLOG) 100 UNIT/ML VIAL SQ SCH ×2 (04:21→08:15)
[2022-11-05] MEDS: INSULIN DETEMIR (LEVEMIR) 100 UNIT/ML SYR SQ SCH (06:42)
[2022-11-05 07:56] LABS: Glucose,Whole Blood 185 mg/dL (70-110)
[2022-11-05] MEDS: PIPERACILLIN-TAZOBACTAM 3.375 GM in SODIUM CHLORIDE 0.9% 100 ML IVPB SCH (08:15)
[2022-11-05] MEDS: levETIRAcetam IV 1,000 MG in SALINE 1 100ML.BAG IVPB SCH (08:15)
[2022-11-05] MEDS: ENOXAPARIN 40 MG/0.4 ML SYRINGE SQ SCH (08:15)
[2022-11-05] MEDS: PANTOPRAZOLE 40 MG/10 ML VIAL IV SCH (08:16)
[2022-11-05] MEDS: ASPIRIN 81 MG PO SCH (08:16)
[2022-11-05] MEDS: CLOPIDOGREL 75 MG TAB PO SCH (08:16)
[2022-11-05] MEDS: METOPROLOL TARTRATE 25 MG TAB PO SCH (08:16)
[2022-11-05 08:55] VITALS: TEMP 98.2
--- NOTE | 2022-11-05 09:01 | P.PN ---
Subjective Progress Note Date: 11/04/22 11/04/2022: Patient was seen for a follow-up. Patient's was also present. Patient appears comfortable, on propofol 25 mcg/kg/m. Patient is comatose with GCS of 3. 11/03/2022: Patient was seen for a follow-up. Patient apparently is now Covid positive, in isolation. Patient continues to be on 3% hypertonic saline solution at 12.5 mL per hour. No seizure-like activity. Patient continues to be comatose with GCS of 3. 11/02/2022: Patient was seen for a follow-up. Patient clinically worse. His pupils are minimally reactive to light sluggishly. No seizure-like activity. Patient currently on Precedex 2 mg per hour. He is off propofol since 5 AM. He has not received any Ativan. Patient underwent computed tomography scan of head performed last night, which revealed severe generalized cerebral edema, with effacement of the perimesencephalic cistern, with cerebral herniation. Also development of moderate hydrocephalus. Patient was started on 3% hypertonic saline at 25 mL per hour. No seizure-like activity noticed. 11/01/2022: Patient initially seen by Dr. [place]. Please refer to his note for details. Patient is a 62-year-old male with cardiac arrest the downtime reported for 35 minutes. Initial EEG showed burst suppressed pattern. Patient had myoclonic jerks of the face and extremities that had resolved. Patient is currently on Depakote and Keppra. Family is aware of poor prognosis. Per nursing report, patient had some seizure-type activity last night for which he received Ativan 1 mg IV at 10 PM. He has been off propofol 10 mcg/kg/m since then. EEG was performed, while he was on propofol. Patient at present is intubated, minimally sedated with propofol 10 mcg/kg/m. No obvious seizure activity noted. Patient is comatose, with GCS of 3. Objective - Vital Signs Vital signs: Vital Signs Temp 98.4 F 11/04/22 16:00 Pulse 80 11/04/22 16:00 Resp 15 11/04/22 16:00 BP 120/63 11/04/22 16:00 Pulse Ox 99 11/04/22 16:00 FiO2 35 11/04/22 16:00 Intake & Output 0411/04/22 11/04/22 18:59 06:59 18:59 Intake Total 1319.5 1692 1520 Output Total 625 440 765 Balance 694.5 1252 755 Weight 76.3 kg 76.3 kg Intake: IV 1157.5 820 700 0.9 @ KVO 120 120 100 Lactated Ringers 1,000 ml 100 600 400 @ 20 mls/hr IV .Q24H MARCELINA Rx#:[id number] Piperacillin-Tazobactam 3 100 100 .375 gm In Sodium Chloride 0.9% 100 ml @ 25 mls/hr IVPB Q8HR MARC[facility] Rx# :[id number] Sodium Chloride 0.9% 1, 700 000 ml @ 70 mls/hr IV . [id number] MARCELINA Rx#:[id number] Sodium Chloride 3%( 137.5 Hypertonic) 500 ml @ 25 mls/hr IV .Q20H MARCELINA Rx#: [id number] levETIRAcetam IV 1,000 mg 100 100 In Saline 1 100ml.bag @ 400 mls/hr IVPB Q12HR MARCELINA Rx#:[id number] Intake, IV Titration 100 100 200 Amount Piperacillin-Tazobactam 3 100 .375 gm In Sodium Chloride 0.9% 100 ml @ 25 mls/hr IVPB Q8HR MARC[facility] Rx# :[id number] propofoL 1,000 mg In 100 100 100 Empty Bag 1 bag @ 15 MCG/ KG/MIN 7.348 mls/hr IV . [id number] [facility]ARC[facility]INA Rx#:[id number] Tube Feeding 62 682 620 Other 90 Output: Urine 625 440 765 Other: Voiding Method Indwelling Catheter Indwelling Catheter Indwelling Catheter ABP, PAP, CO, CI - Last Documented Arterial Blood Pressure 163/55 - Exam On examination patient is comatose, with GCS of 3. Patient does not respond to any verbal or painful stimuli. Patient's pupils are about 3 mm, nonreactive. They are equal in size. Oculocephalics are absent. Corneals are absent. Patient did not gag on suctioning of the in the pharyngeal region. Patient did not cough when he was tried to suction through the ET tube. Per nurse, he is slightly bridging over the ventilator. Reflexes are absent, plantars are flat. No obvious seizure activity noted. - Labs CBC & Chem 7: 11/04/22 21:45 11/04/22 21:45 Labs: Abnormal Lab Results - Last 24 Hours (Table) 11/03/22 11/03/22 11/03/22 Range/Units 20:28 22:05 22:05 RBC 3.08 L (4.30-5.90) m/uL Hgb 9.5 L (13.0-17.5) gm/dL Hct 28.8 L (39.0-53.0) % Lymphocytes # 0.6 L (1.0-4.8) k/uL ABG pO2 (83-108) mmHg ABG HCO3 (21-25) mmol/L ABG Total CO2 (19-24) mmol/L ABG O2 Saturation (94-97) % Sodium 155 H (137-145) mmol/L Chloride 126 H (98-107) mmol/L BUN 24 H (9-20) mg/dL Glucose (74-99) mg/dL POC Glucose (mg/dL) 130 H (70-110) mg/dL Calcium 7.5 L (8.4-10.2) mg/dL Magnesium 2.5 H (1.6-2.3) mg/dL Total Bilirubin 0.1 L (0.2-1.3) mg/dL AST 93 H (17-59) U/L ALT 54 H (4-49) U/L Total Protein 4.1 L (6.3-8.2) g/dL Albumin 2.1 L (3.5-5.0) g/dL 11/03/22 11/04/22 11/04/22 Range/Units 23:23 08:04 09:55 RBC (4.30-5.90) m/uL Hgb (13.0-17.5) gm/dL Hct (39.0-53.0) % Lymphocytes # (1.0-4.8) k/uL ABG pO2 140 H 391 H (83-108) mmHg ABG HCO3 26 H 26 H (21-25) mmol/L ABG Total CO2 27 H 27 H (19-24) mmol/L ABG O2 Saturation 99.4 H 100.0 H (94-97) % Sodium (137-145) mmol/L Chloride (98-107) mmol/L BUN (9-20) mg/dL Glucose (74-99) mg/dL POC Glucose (mg/dL) 137 H (70-110) mg/dL Calcium (8.4-10.2) mg/dL Magnesium (1.6-2.3) mg/dL Total Bilirubin (0.2-1.3) mg/dL AST (17-59) U/L ALT (4-49) U/L Total Protein (6.3-8.2) g/dL Albumin (3.5-5.0) g/dL 11/04/22 11/04/22 11/04/22 Range/Units 10:38 10:38 12:01 RBC 3.14 L (4.30-5.90) m/uL Hgb 9.5 L (13.0-17.5) gm/dL Hct 29.9 L (39.0-53.0) % Lymphocytes # (1.0-4.8) k/uL ABG pO2 (83-108) mmHg ABG HCO3 (21-25) mmol/L ABG Total CO2 (19-24) mmol/L ABG O2 Saturation (94-97) % Sodium 157 H (137-145) mmol/L Chloride 128 H (98-107) mmol/L BUN 24 H (9-20) mg/dL Glucose 158 H (74-99) mg/dL POC Glucose (mg/dL) 175 H (70-110) mg/dL Calcium 7.6 L (8.4-10.2) mg/dL Magnesium 2.5 H (1.6-2.3) mg/dL Total Bilirubin 0.1 L (0.2-1.3) mg/dL AST 113 H (17-59) U/L ALT 62 H (4-49) U/L Total Protein 4.3 L (6.3-8.2) g/dL Albumin 2.1 L (3.5-5.0) g/dL 11/04/22 Range/Units 16:25 RBC (4.30-5.90) m/uL Hgb (13.0-17.5) gm/dL Hct (39.0-53.0) % Lymphocytes # (1.0-4.8) k/uL ABG pO2 (83-108) mmHg ABG HCO3 (21-25) mmol/L ABG Total CO2 (19-24) mmol/L ABG O2 Saturation (94-97) % Sodium (137-145) mmol/L Chloride (98-107) mmol/L BUN (9-20) mg/dL Glucose (74-99) mg/dL POC Glucose (mg/dL) 153 H (70-110) mg/dL Calcium (8.4-10.2) mg/dL Magnesium (1.6-2.3) mg/dL Total Bilirubin (0.2-1.3) mg/dL AST (17-59) U/L ALT (4-49) U/L Total Protein (6.3-8.2) g/dL Albumin (3.5-5.0) g/dL Microbiology - Last 24 Hours (Table) 10/31/22 13:26 Blood Culture - Preliminary Blood No Growth after 96 hours 11/03/22 09:45 Fungal Culture - Preliminary Bronchial Washings - Random 11/03/22 09:45 Acid Fast Bacilli Culture - Preliminary Bronchial Washings - Random Assessment and Plan Assessment: This is a 62-year-old gentleman with had a cardiopulmonary arrest while at work and was down time for a total of possibly 35 minutes. Severe anoxic brain injury with anoxic encephalopathy, computed tomography scan showing severe generalized cerebral edema with mass effect, crowding of the basilar cisterns with cerebellar tonsillar and uncal herniation. Presence of new onset hydrocephalus due to above. Impending brain . Hypernatremia Myloclonic seizure (facial and body) due to above--resolved Acute STEMI, inferior wall myocardial infarction Liver shock likely due to cardiac arrest Acute kidney injury likely due to cardiac arrest Diabetes mellitus type 2 Hypertension Plan: Patient is off hypertonic saline. Patient is getting free water through NG tube to help with hypernatremia. Computed tomography scan of head 11/01/2022 revealed interval loss of leonardo-white matter differentiation, compatible with global hypoxic ischemic injury in the setting of cardiac arrest. Crowding of the basilar cisterns with cerebral tonsillar and uncal herniation. New hydrocephalus with interval increase in dilation of the lateral ventricles, likely secondary to #1 and #2. I personally reviewed CT head, agree with the findings. Based upon the patient's clinical condition, EEG findings and computed tomography scan, patient is impending brain . Repeat EEG 11/01/2022 was completely suppressed EEG, suggestive of isoelectric EEG. No epileptiform activity was seen. When compared to the EEG from 10/30/2022, the EEG seems to be worse, with complete absence of any bursts or any discernible electrocerebral activity. We will stop Depakote, as there is no epileptiform activity seen. Continue Keppra. We'll defer the rest of the medical management to the ICU and cardiology team Discussed with patient's nurse and patient's in detail. Patient to undergo gift [facility] in the morning. Neurology will sign off.
[2022-11-05 09:03] VITALS: BP 132/71; PULSE 70
[2022-11-05] MEDS: CHLORHEXIDINE GLUCONATE 15 ML CUP MUCOUS MEM SCH (09:08)
[2022-11-05] MEDS ORDERED: LORazepam 2 MG/ML INJ IV PRN (09:32)
[2022-11-05] MEDS ORDERED: MORPHINE SULFATE (100 MG/2 ML) 100 MG in SODIUM CHLORIDE 0.9% 100 ML IV SCH (10:00)
[2022-11-05] MEDS: MORPHINE SULFATE 4 MG/ML SYRINGE IV PRN ×2 (11:18→11:33)
[2022-11-05 12:11] VITALS: RESP 20
--- NOTE | 2022-11-06 08:41 | DS ---
DISCHARGE SUMMARY PRELIMINARY CAUSE OF : Acute ST-segment elevation myocardial infarction, cardiac arrest, and anoxic brain injury. OTHER DIAGNOSES: 1. Cerebral edema and herniation. 2. Acute pulmonary edema. 3. Diabetes type 2. 4. Hypertension. 5. COVID-19 positive in the nasal swab. HISTORY OF PRESENT ILLNESS: This was 62-year-old gentleman without incidental past medical history, admitted with acute myocardial infarction and prolonged cardiac arrest. The patient suffered anoxic brain injury. The patient was monitored closely, patient not improved and despite aggressive treatment, the patient was also given 3% saline for cerebral edema. Neurology, cardiology, pulmonology saw the patient during the hospitalization. Eventually, the patient was made comfort care and [facility] was also involved. Please refer to the notes for further details. Despite intensive treatment in ICU for several days, the patient did not improve and succumbed to his above-mentioned multiple complex medical issues. Prognosis was extremely guarded throughout the hospital stay. MMMUNDO / AMAYA: [id number] /
== END 2022-11-05 13:50 | disposition expired ==
LOC: EDBD → EC 14:27 → 2SICU 15:26
PROVIDERS: ADMIT Internal Medicine; ATTEND Internal Medicine
PROC: 06HY33Z Insertion of Infusion Device into Lower Vein, Percutaneous Approach (ICD-10-PCS; 2022-10-29)
PROC: 5A1955Z Respiratory Ventilation, Greater than 96 Consecutive Hours (ICD-10-PCS; 2022-10-29)
PROC: 5A12012 Performance of Cardiac Output, Single, Manual (ICD-10-PCS; 2022-10-29)
PROC: 0D9670Z Drainage of Stomach with Drainage Device, Via Natural or Artificial Opening (ICD-10-PCS; 2022-10-29)
PROC: 4A133B1 Monitoring of Arterial Pressure, Peripheral, Percutaneous Approach (ICD-10-PCS; principal; 2022-10-29 18:50)
PROC: 03HY32Z Insertion of Monitoring Device into Upper Artery, Percutaneous Approach (ICD-10-PCS; principal; 2022-10-29 18:50)
PROC: 4A133J1 Monitoring of Arterial Pulse, Peripheral, Percutaneous Approach (ICD-10-PCS; principal; 2022-10-29 18:50)
PROC: 3E0G76Z Introduction of Nutritional Substance into Upper GI, Via Natural or Artificial Opening (ICD-10-PCS; 2022-10-30)
PROC: 0B9J8ZX Drainage of Left Lower Lung Lobe, Via Natural or Artificial Opening Endoscopic, Diagnostic (ICD-10-PCS; 2022-11-03)
PROC: 0B9F8ZX Drainage of Right Lower Lung Lobe, Via Natural or Artificial Opening Endoscopic, Diagnostic (ICD-10-PCS; 2022-11-03)
DX: I21.19 ST elevation (STEMI) myocardial infarction involving other coronary artery of inferior wall (principal); G93.5 Compression of brain; G93.6 Cerebral edema; J96.01 Acute respiratory failure with hypoxia; K72.00 Acute and subacute hepatic failure without coma; J69.0 Pneumonitis due to inhalation of food and vomit; J81.0 Acute pulmonary edema; U07.1 COVID-19; G93.1 Anoxic brain damage, not elsewhere classified; N17.9 Acute kidney failure, unspecified; E87.0 Hyperosmolality and hypernatremia; Z99.11 Dependence on respirator [ventilator] status; E87.21 Acute metabolic acidosis; J98.11 Atelectasis; Z51.5 Encounter for palliative care; Z66 Do not resuscitate; I46.2 Cardiac arrest due to underlying cardiac condition; I49.01 Ventricular fibrillation; G91.4 Hydrocephalus in diseases classified elsewhere; L97.529 Non-pressure chronic ulcer of other part of left foot with unspecified severity; L97.519 Non-pressure chronic ulcer of other part of right foot with unspecified severity; G25.3 Myoclonus; E86.0 Dehydration; E11.51 Type 2 diabetes mellitus with diabetic peripheral angiopathy without gangrene; E11.65 Type 2 diabetes mellitus with hyperglycemia; E11.621 Type 2 diabetes mellitus with foot ulcer; I10 Essential (primary) hypertension; B96.20 Unspecified Escherichia coli [E. coli] as the cause of diseases classified elsewhere; J01.00 Acute maxillary sinusitis, unspecified; J01.30 Acute sphenoidal sinusitis, unspecified; I25.10 Atherosclerotic heart disease of native coronary artery without angina pectoris; Z28.311 Partially vaccinated for COVID-19; Z79.899 Other long term (current) drug therapy; Z79.84 Long term (current) use of oral hypoglycemic drugs; Z79.4 Long term (current) use of insulin
CPT/HCPCS: 36415; 36600; 70450; 71045; 71250; 74176; 80048; 80053; 80306; 81001; 81003; 82140; 82150; 82248; 82805; 83036; 83605; 83690; 83735; 84100; 84132; 84295; 84443; 84450; 84460; 84484; 85025; 85027; 85610; 85730; 86850; 86900; 86901; 87040; 87070; 87077; 87102; 87116; 87186; 87205; 87206; 87252; 87496; 87498; 87502; 87529; 87634; 87635; 87798; 88108; 88305; 89050; 93005; 93306; 94003; 94640; 94667; 94668; 95819; 95822; 96365; 96366; 99291